=== PATIENT | female | born 1940 | race Caucasian/White ===

== ENCOUNTER 2019-08-26 09:48 | Outpatient (CLI) | payer MEDICARE, SELFPAY ==
[2019-08-26 10:31] LABS: Magnesium 1.4 mg/dL (1.8-2.4); Thyroid Stimulating Hormone 1.56 uIU/mL (0.36-3.74)
== END 2019-08-26 09:49 | disposition home or self-care (01) ==
LOC: CHSLAB 09:52
PROVIDERS: PCP Nurse Practitioner Family; Visit Provider Nurse Practitioner Family
DX: E83.42 Hypomagnesemia (principal); E03.9 Hypothyroidism, unspecified
CPT/HCPCS: 36415; 83735; 84443

== ENCOUNTER 2019-08-28 12:53 | Outpatient (CLI) | payer MEDICARE, BC, SELFPAY ==
[2019-08-28] MEDS: MAGNESIUM SULF 4 GM/WATER100ML 4 GM/100 ML BAG IVPB (13:40)
== END 2019-08-28 12:54 | disposition home or self-care (01) ==
LOC: CHSTREATRM 12:56
PROVIDERS: PCP Nurse Practitioner Family; Visit Provider Nurse Practitioner Family
DX: E83.42 Hypomagnesemia (principal)
CPT/HCPCS: 96365; J3475

== ENCOUNTER 2019-09-02 10:27 | Outpatient (RCR) | payer MEDICARE, SELFPAY ==
[2019-09-02 11:40] LABS: Magnesium 1.8 mg/dL (1.8-2.4)
== END 2019-12-01 23:59 | disposition home or self-care (01) ==
LOC: CHSLAB 10:27
PROVIDERS: PCP Nurse Practitioner Family; Visit Provider Nurse Practitioner Family
DX: E83.42 Hypomagnesemia (principal)
CPT/HCPCS: 36415; 83735

== ENCOUNTER 2019-11-15 20:01 | Emergency (ER) | payer MEDICARE, BC, SELFPAY ==
[2019-11-15 20:15] VITALS: PULSE 80
[2019-11-15 20:20] VITALS: BP 190/99; PULSE 104; RESP 20; TEMP 37.1; O2SAT 98
--- NOTE | 2019-11-15 20:29 | ECG_ITS ---
Measurements Intervals [place] Rate: 71 P: 56 NV: 192 QRS: 6 QRSD: 91 T: 8 QT: 369 QTc: 404 Interpretive Statements SINUS RHYTHM BORDERLINE T WAVE ABNORMALITY- INFERIOR LEADS BASELINE ARTIFACT- I, II, III, AVR, AVL, AVF BORDERLINE ECG Electronically Signed On 11-17-2019 7:04:15 CDT by Mo Betancur D.O.
[2019-11-15 20:56] LABS: Basophils Absolute Auto 0.05 K/mm3 (0.00-0.10); Basophils Percent Auto 0.7 % (0.0-1.0); Eosinophils Absolute Auto 0.16 K/mm3 (0.02-0.50); Eosinophils Percent Auto 2.2 % (1.0-6.0); Hematocrit 45.9 % (35.0-42.0); Hemoglobin 15.7 g/dL (11.7-13.8); Immature Granulocyte Absolute 0.01 K/mm3 (0.00-0.00); Immature Granulocyte Percent A 0.1 % (0.0-0.0); Lymphocytes Absolute Auto 3.16 K/mm3 (1.10-4.50); Lymphocytes Percent Auto 43.6 % (18.0-42.0); Mean Corpuscular HGB Conc 34.2 g/dL (32.0-36.0); Mean Corpuscular Hemoglobin 34.7 pg (27.0-31.0); Mean Corpuscular Volume 101.3 fL (78.0-102.0); Mean Platelet Volume 9.7 fl (9.2-11.8); Monocytes Absolute Auto 0.66 K/mm3 (0.10-0.90); Monocytes Percent Auto 9.1 % (2.0-11.0); Neutrophils Absolute Auto 3.2 K/mm3 (1.7-7.2); Neutrophils Percent Auto 44.3 % (50.0-70.0); Platelet Count Result 232 K/mm3 (150-420); Red Blood Count 4.53 M/mm3 (4.20-5.40); White Blood Count 7.2 K/mm3 (4.8-10.8)
[2019-11-15 21:24] VITALS: BP 163/91; PULSE 63; RESP 18; O2SAT 98
[2019-11-15 21:24] LABS: Alanine Aminotransferase 15 U/L (14-59); Albumin Level 4.2 g/dL (3.4-5.0); Alkaline Phosphatase 45 U/L (46-116); Anion Gap 12.9 mmol/L (7-16); Aspartate Amino Transferase 19 U/L (15-37); Bilirubin,Total 0.5 mg/dL (0.00-1.00); Blood Urea Nitrogen 25 mg/dL (7-18); Calcium 10.1 mg/dL (8.5-10.1); Carbon Dioxide 29 mmol/L (21-32); Chloride 103 mmol/L (98-108); Estimated CRCL calculation 38 ml/min; Estimated Glomerular Filt Rate 48; Glucose 137 mg/dL (70-99); Magnesium 1.7 mg/dL (1.8-2.4); Osmolality Calculated 298 mOsm/kg (285-295); Potassium 3.9 mmol/L (3.5-5.1); Sodium 141 mmol/L (136-145); Total Protein 7.2 g/dL (6.4-8.2)
[2019-11-15 21:25] LABS: Troponin I < 0.02 ng/mL (0.00-0.056)
[2019-11-15 21:26] LABS: Thyroid Stimulating Hormone 2.53 uIU/mL (0.36-3.74)
[2019-11-15 22:03] VITALS: BP 163/92; PULSE 63; RESP 20; TEMP 36.8; O2SAT 98
--- NOTE | 2019-11-15 22:04 | ED.ARRPALP ---
HPI - Arrhythmia/Palpitations General Chief Complaint: Weakness Stated Complaint: high pulse Source: patient Mode of arrival: ambulatory Limitations: no limitations History of Present Illness HPI narrative: 79 y.o. female c/o palpitations, onset at 6 PM tonight associated with rapid heart rate as high as 143. Peyton has a long history of these which has been followed by cardiology, Dr. Venegas. They have been associated with low magnesium levels. Every since being dx. with hypothyroidism and starting levothyroxine she has not had problems with this. In the past her rn care manager had drink cold water, cough, grunt, or take a deep breath. These maneuvers this evening brought her pulse down temporarily. Usually her blood pressure runs around 120 systolic. Tonight it was aslo elevated. She has not missed doses of medicine. She was anxious this afternoon when, for the first time, she picked up groceries which she had ordered on line. Severity: moderate Context: occurred during rest Related Data Home Medications Medication Instructions Recorded Confirmed L.acidophilus-B.bifidum,longum 240 cap PO 05/20/19 05/20/19 mg (3 billion cell) capsule acetaminophen 325 mg tablet 325 mg PO Q6H PRN 05/20/19 05/20/19 aspirin 81 mg tablet,delayed 81 mg PO DAILY 05/20/19 05/20/19 release estradiol 0.5 mg/0.5 gram (0.1 %) 1 packet TRANSDERM DAILY 05/20/19 05/20/19 transdermal gel packet fenofibrate micronized 134 mg 134 mg PO DAILY 05/20/19 05/20/19 capsule losartan 100 mg tablet 100 mg PO DAILY 05/20/19 05/20/19 magnesium oxide 800 mg PO BID cap 05/20/19 metoprolol tartrate 25 mg tablet 25 mg PO DAILY 05/20/19 05/20/19 ranitidine HCl 150 mg tablet 150 mg PO BID tablet 05/20/19 05/20/19 spironolactone 100 mg tablet 100 mg PO DAILY 05/20/19 05/20/19 tramadol 50 mg tablet 50 mg PO Q6H PRN 05/20/19 05/20/19 alprazolam 0.5 mg PO HS 11/15/19 11/15/19 colestipol 1 gm PO BID 11/15/19 11/15/19 Allergies Allergy/AdvReac Type Severity Reaction Status Date / Time codeine Allergy Intermediate Unknown Verified 08/07/19 13:53 magnesium citrate Allergy Intermediate diarrhea Verified 08/07/19 13:53 sulfisoxazole Allergy Intermediate Unknown Verified 08/07/19 13:53 IVP dye Allergy Intermediate Unknown Uncoded 08/07/19 13:53 Review of Systems Constitutional: Constitutional: Denies chills and Denies fever(s) ENT: Denies nasal congestion and Denies sore throat Cardiovascular: Cardiovascular: Denies chest pain and Denies radiating jaw, neck or arm pain Respiratory: Respiratory: Denies cough and Denies dyspnea Gastrointestinal: Gastrointestinal: Denies abdominal pain, Denies nausea and Denies vomiting Genitourinary: Genitourinary: Denies dysuria Musculoskeletal: Musculoskeletal: Reports arthralgias (chronic knee pain) Integumentary/Breasts: Skin/Breast: Denies rash Neurologic: Denies syncope Psychiatric: Psychiatric: Reports anxiety Hematologic/Lymphatic: Hematologic/Lymphatic: Denies easy bleeding PMFSH Past Medical History Medical History External hemorrhoids GERD (gastroesophageal reflux disease) HTN (hypertension) (02/28/18) Hypomagnesemia (01/17/18) Sleep apnea SVT (supraventricular tachycardia) Surgical History Surgical History History of appendectomy History of hernia repair History of lumpectomy of left breast Hx laparoscopic cholecystectomy Hx of coronary artery disease Hx of joint replacement Hx of small bowel obstruction Family History Family History Father Family history of chronic obstructive pulmonary disease Family history of coronary artery disease Father Family history of coronary artery disease Family history of chronic obstructive pulmonary disease Mother Hypertension Mother Hypertension Father Family history of coronary artery disease Fami
== END 2019-11-15 22:14 | disposition home or self-care (01) ==
PROVIDERS: Emergency Provider Family Medicine; PCP Nurse Practitioner Family
DX: R00.2 Palpitations (principal); E83.42 Hypomagnesemia
CPT/HCPCS: 36415; 80053; 83735; 84443; 84484; 85025; 93005; 99284

== ENCOUNTER 2019-12-22 09:05 | Outpatient (CLI) | payer MEDICARE, SELFPAY ==
[2019-12-22 10:18] LABS: Magnesium 1.8 mg/dL (1.8-2.4); Thyroid Stimulating Hormone 1.99 uIU/mL (0.36-3.74)
[2019-12-30 06:50] LABS: Total Triiodothyronine (T3) 91
== END 2019-12-22 09:06 | disposition home or self-care (01) ==
PROVIDERS: PCP Nurse Practitioner Family; Visit Provider Nurse Practitioner Family
DX: E83.42 Hypomagnesemia (principal); E03.9 Hypothyroidism, unspecified
CPT/HCPCS: 36415; 83735; 84439; 84443; 84480

== ENCOUNTER 2020-03-18 11:00 | Outpatient (CLI) | payer MEDICARE, SELFPAY ==
[2020-03-18 11:23] LABS: Basophils Absolute Auto 0.07 K/mm3 (0.00-0.10); Basophils Percent Auto 0.9 % (0.0-1.0); Eosinophils Absolute Auto 0.07 K/mm3 (0.02-0.50); Eosinophils Percent Auto 0.9 % (1.0-6.0); Hematocrit 46.9 % (35.0-42.0); Hemoglobin 15.6 g/dL (11.7-13.8); Immature Granulocyte Absolute 0.03 K/mm3 (0.00-0.00); Immature Granulocyte Percent A 0.4 % (0.0-0.0); Lymphocytes Absolute Auto 1.71 K/mm3 (1.10-4.50); Lymphocytes Percent Auto 21.3 % (18.0-42.0); Mean Corpuscular HGB Conc 33.3 g/dL (32.0-36.0); Mean Corpuscular Hemoglobin 34.1 pg (27.0-31.0); Mean Corpuscular Volume 102.4 fL (78.0-102.0); Mean Platelet Volume 9.7 fl (9.2-11.8); Monocytes Absolute Auto 0.65 K/mm3 (0.10-0.90); Monocytes Percent Auto 8.1 % (2.0-11.0); Neutrophils Absolute Auto 5.5 K/mm3 (1.7-7.2); Neutrophils Percent Auto 68.4 % (50.0-70.0); Platelet Count Result 266 K/mm3 (150-420); Red Blood Count 4.58 M/mm3 (4.20-5.40); Red Cell Distribution Width 12.5 % (11.6-14.4)
[2020-03-18 12:27] LABS: Alanine Aminotransferase 22 U/L (14-59); Albumin Level 4.4 g/dL (3.4-5.0); Alkaline Phosphatase 38 U/L (46-116); Anion Gap 5 mmol/L (8-16); Aspartate Amino Transferase 16 U/L (15-37); Bilirubin,Total 0.8 mg/dL (0.00-1.00); Blood Urea Nitrogen 20 mg/dL (7-18); Calcium 10.7 mg/dL (8.5-10.1); Carbon Dioxide 29 mmol/L (21-32); Chloride 101 mmol/L (98-108); Estimated Glomerular Filt Rate 49; Free T4 Free Thyroxine 1.78 ng/dL (0.76-1.46); Glucose 93 mg/dL (70-99); Magnesium 1.9 mg/dL (1.8-2.4); Osmolality Calculated 282 mOsm/kg (285-295); Potassium 5.1 mmol/L (3.5-5.1); Sodium 135 mmol/L (136-145); Thyroid Stimulating Hormone 1.49 uIU/mL (0.36-3.74); Total Protein 7.4 g/dL (6.4-8.2); Vitamin B12 1288 pg/mL (193-986)
[2020-03-23 12:28] LABS: Vitamin D 25 Hydroxy 44 ng/mL (30-100)
[2020-03-24 04:30] LABS: Total Triiodothyronine (T3) 89.7 ng/dL (76-181)
== END 2020-03-18 11:01 | disposition home or self-care (01) ==
LOC: CHSLAB 11:04
PROVIDERS: PCP Nurse Practitioner Family; Visit Provider Nurse Practitioner Family
DX: R53.1 Weakness (principal); E03.9 Hypothyroidism, unspecified; E83.42 Hypomagnesemia; Z79.899 Other long term (current) drug therapy
CPT/HCPCS: 36415; 80053; 82306; 82607; 83735; 84439; 84443; 84480; 85025

== ENCOUNTER 2020-04-08 13:10 | Emergency (ER) | payer MEDICARE, BC, SELFPAY ==
[2020-04-08 13:30] VITALS: BP 190/96; PULSE 70; RESP 20; TEMP 36.7; O2SAT 100
--- NOTE | 2020-04-08 13:35 | ECG_ITS ---
Measurements Intervals [place] Rate: 65 P: -11 MO: 183 QRS: 80 QRSD: 92 T: -2 QT: 404 QTc: 422 Interpretive Statements SINUS RHYTHM ATRIAL PREMATURE COMPLEX BORDERLINE ST-T WAVE ABNORMALITY- INFERIOR LEADS BASELINE ARTIFACT- II, III BORDERLINE ECG Electronically Signed On 04-08-2020 14:00:22 CDT by Mo Betancur D.O.
[2020-04-08 13:54] LABS: Hematocrit 44.6 % (35.0-42.0); Hemoglobin 15.1 g/dL (11.7-13.8); Mean Corpuscular HGB Conc 33.9 g/dL (32.0-36.0); Mean Corpuscular Hemoglobin 34.6 pg (27.0-31.0); Mean Corpuscular Volume 102.3 fL (78.0-102.0); Mean Platelet Volume 9.5 fl (9.2-11.8); Platelet Count Result 255 K/mm3 (150-420); Red Blood Count 4.36 M/mm3 (4.20-5.40); Red Cell Distribution Width 12.3 % (11.6-14.4); White Blood Count 9.6 K/mm3 (4.8-10.8)
[2020-04-08 14:13] LABS: Alanine Aminotransferase 11 U/L (14-59); Albumin Level 4.3 g/dL (3.4-5.0); Alkaline Phosphatase 41 U/L (46-116); Anion Gap 5 mmol/L (8-16); Aspartate Amino Transferase 17 U/L (15-37); Blood Urea Nitrogen 24 mg/dL (7-18); Calcium 10.1 mg/dL (8.5-10.1); Carbon Dioxide 28 mmol/L (21-32); Chloride 100 mmol/L (98-108); Estimated CRCL calculation 45 ml/min; Estimated Glomerular Filt Rate 58; Glucose 112 mg/dL (70-99); Osmolality Calculated 281 mOsm/kg (285-295); Potassium 4.3 mmol/L (3.5-5.1); Sodium 133 mmol/L (136-145); Total Protein 7.5 g/dL (6.4-8.2)
[2020-04-08 14:18] LABS: Troponin I < 0.02 ng/mL (0.00-0.056)
[2020-04-08 14:21] VITALS: BP 175/94; PULSE 69; RESP 20; O2SAT 98
[2020-04-08 15:04] VITALS: PULSE 68
[2020-04-08] MEDS: METOPROLOL TARTRATE 50 MG TAB PO (15:04)
--- NOTE | 2020-04-08 15:25 | ED.DIZZY ---
HPI - Dizziness General Chief Complaint: Dizziness Stated Complaint: dizziness, high BP Source: patient and family Mode of arrival: ambulatory Limitations: no limitations History of Present Illness HPI Narrative: This is a 79 old female that presents with history of hypertension with some elevated blood pressure. The patient recently was seen by her industrial maintenance electrician approximately 1 week ago and was told to monitor her blood pressure. Patient presents today with some symptoms of elevated blood pressure and dizziness with head movement. Currently there is no chest pain no shortness of breath no nausea vomiting no abdominal pain. Initial blood pressure on presentation was not 190/76, patient is on metoprolol and losartan along with spironolactone. MD elicited complaint: dizziness and lightheadedness Onset (ago): day(s) Timing: gradual onset Severity: mild Description: sense of movement History of similar symptoms: No Relieving factors: nothing Associated symptoms: denies other symptoms Related Data Home Medications Medication Instructions Recorded Confirmed L.acidophilus-B.bifidum,longum 240 1 cap PO DAILY 05/20/19 03/23/20 mg (3 billion cell) capsule acetaminophen 325 mg tablet 325 mg PO Q6H PRN 05/20/19 03/23/20 aspirin 81 mg tablet,delayed 81 mg PO DAILY 05/20/19 03/23/20 release fenofibrate micronized 134 mg 134 mg PO DAILY 05/20/19 03/23/20 capsule magnesium oxide 400 mg PO BID cap 05/20/19 03/23/20 metoprolol tartrate 25 mg tablet 25 mg PO BID 05/20/19 03/23/20 ranitidine HCl 150 mg tablet 150 mg PO BID tablet 05/20/19 03/23/20 spironolactone 100 mg tablet 100 mg PO DAILY 05/20/19 03/23/20 alprazolam 0.5 mg PO HS 11/15/19 03/23/20 colestipol 1 gm PO BID 11/15/19 03/23/20 Allergies Allergy/AdvReac Type Severity Reaction Status Date / Time codeine Allergy Intermediate Unknown Verified 03/23/20 09:11 magnesium citrate Allergy Intermediate diarrhea Verified 03/23/20 09:11 sulfisoxazole Allergy Intermediate Unknown Verified 03/23/20 09:11 IVP dye Allergy Intermediate Unknown Uncoded 03/23/20 09:11 Review of Systems Review of Systems: All systems reviewed & are unremarkable except as noted in HPI and below PMFSH Past Medical History Medical History Adult hypothyroidism Aftercare following knee joint replacement surgery External hemorrhoids ABEL (generalized anxiety disorder) GERD (gastroesophageal reflux disease) HTN (hypertension) (02/28/18) Hypomagnesemia (01/17/18) Sleep apnea SVT (supraventricular tachycardia) Surgical History Surgical History History of appendectomy History of hernia repair History of lumpectomy of left breast Hx laparoscopic cholecystectomy Hx of coronary artery disease Hx of joint replacement Hx of small bowel obstruction Family History Family History Father Family history of chronic obstructive pulmonary disease Family history of coronary artery disease Father Family history of coronary artery disease Family history of chronic obstructive pulmonary disease Mother Hypertension Mother Hypertension Father Family history of coronary artery disease Family history of chronic obstructive pulmonary disease Other Diabetes mellitus Family history of arthritis Family history of cardiovascular disease Family history of gout Social History Social History Smoking status: Never smoker Tobacco type: cigarettes Alcohol intake: never Substance use: never Substance use type: does not use Gender identity (if verbalized by the patient): Female Exam Const: General: no acute distress Orientation/consciousness: patient oriented x3 HENMT: Head: normal to inspection Eyes: Conjunctivae: conjunctivae normal Pupils: Equal, round and reactive
[2020-04-08 15:36] VITALS: BP 158/94; PULSE 61; RESP 20; O2SAT 99
== END 2020-04-08 15:46 | disposition home or self-care (01) ==
PROVIDERS: Emergency Provider Emergency Medicine; PCP Nurse Practitioner Family
DX: R42 Dizziness and giddiness (principal); I10 Essential (primary) hypertension; E03.9 Hypothyroidism, unspecified; K21.9 Gastro-esophageal reflux disease without esophagitis
CPT/HCPCS: 36415; 80053; 84484; 85027; 93005; 99283; 99284; A9270

== ENCOUNTER 2020-06-26 17:58 | Emergency (ER) | payer MEDICARE, BC, SELFPAY ==
[2020-06-26 18:05] VITALS: BP 189/96; PULSE 72; RESP 16; TEMP 36.9; O2SAT 99
--- NOTE | 2020-06-26 18:14 | ECG_ITS ---
Measurements Intervals [place] Rate: 66 P: 35 OR: 184 QRS: 13 QRSD: 90 T: 15 QT: 388 QTc: 408 Interpretive Statements SINUS RHYTHM WITH SINUS ARRHYTHMIA BORDERLINE T WAVE ABNORMALITY- INFERIOR LEADS BASELINE ARTIFACT- I, II, III, AVR, AVL, AVF, V1-V6 BORDERLINE ECG Electronically Signed On 06-27-2020 13:43:16 SENIOR JAVA WEB DEVELOPER by Mo Betancur D.O.
[2020-06-26] MEDS: ALPRAZolam (*CRX) 0.5 MG TABLET PO (18:23)
[2020-06-26 18:25] LABS: Basophils Absolute Auto 0.07 K/mm3 (0.00-0.10); Eosinophils Absolute Auto 0.12 K/mm3 (0.02-0.50); Eosinophils Percent Auto 1.8 % (1.0-6.0); Hematocrit 45.2 % (35.0-42.0); Hemoglobin 14.8 g/dL (11.7-13.8); Immature Granulocyte Absolute 0.02 K/mm3 (0.00-0.00); Immature Granulocyte Percent A 0.3 % (0.0-0.0); Lymphocytes Absolute Auto 2.13 K/mm3 (1.10-4.50); Lymphocytes Percent Auto 31.1 % (18.0-42.0); Mean Corpuscular HGB Conc 32.7 g/dL (32.0-36.0); Mean Corpuscular Hemoglobin 33.9 pg (27.0-31.0); Mean Corpuscular Volume 103.7 fL (78.0-102.0); Mean Platelet Volume 9.7 fl (9.2-11.8); Monocytes Absolute Auto 0.55 K/mm3 (0.10-0.90); Neutrophils Percent Auto 57.8 % (50.0-70.0); Platelet Count Result 225 K/mm3 (150-420); Red Blood Count 4.36 M/mm3 (4.20-5.40); Red Cell Distribution Width 12.3 % (11.6-14.4); White Blood Count 6.8 K/mm3 (4.8-10.8)
[2020-06-26 18:40] LABS: Alanine Aminotransferase 17 U/L (14-59); Albumin Level 3.9 g/dL (3.4-5.0); Alkaline Phosphatase 49 U/L (46-116); Anion Gap 10 mmol/L (8-16); Aspartate Amino Transferase 17 U/L (15-37); Blood Urea Nitrogen 21 mg/dL (7-18); Calcium 9.7 mg/dL (8.5-10.1); Carbon Dioxide 28 mmol/L (21-32); Chloride 99 mmol/L (98-108); Estimated Glomerular Filt Rate 59; Glucose 100 mg/dL (70-99); Osmolality Calculated 287 mOsm/kg (285-295); Potassium 4.5 mmol/L (3.5-5.1); Sodium 137 mmol/L (136-145); Total Protein 7.3 g/dL (6.4-8.2)
--- NOTE | 2020-06-26 18:42 | ED.GENADULT ---
HPI - General Adult General Chief complaint: Unspecified Stated complaint: elevated bp Related Data Home Medications Medication Instructions Recorded Confirmed acetaminophen 325 mg tablet 325 mg PO Q6H PRN 05/20/19 06/26/20 aspirin 81 mg tablet,delayed 81 mg PO DAILY 05/20/19 06/26/20 release fenofibrate micronized 134 mg 134 mg PO DAILY 05/20/19 06/26/20 capsule magnesium oxide 400 mg PO BID cap 05/20/19 06/26/20 ranitidine HCl 150 mg tablet 150 mg PO BID tablet 05/20/19 06/26/20 spironolactone 100 mg tablet 100 mg PO DAILY 05/20/19 06/26/20 alprazolam 0.5 mg PO HS 11/15/19 06/26/20 colestipol 1 gm PO BID 11/15/19 06/26/20 Allergies Allergy/AdvReac Type Severity Reaction Status Date / Time codeine Allergy Intermediate Unknown Verified 04/14/20 14:13 magnesium citrate Allergy Intermediate diarrhea Verified 04/14/20 14:13 sulfisoxazole Allergy Intermediate Unknown Verified 04/14/20 14:13 iohexol Allergy Flushing Verified 06/26/20 18:11 [From contrast - CT, X-RAY] PMFSH Past Medical History Medical History Adult hypothyroidism Aftercare following knee joint replacement surgery External hemorrhoids ABEL (generalized anxiety disorder) GERD (gastroesophageal reflux disease) HTN (hypertension) (02/28/18) Hypomagnesemia (01/17/18) Sleep apnea SVT (supraventricular tachycardia) Surgical History Surgical History History of appendectomy History of hernia repair History of lumpectomy of left breast Hx laparoscopic cholecystectomy Hx of coronary artery disease Hx of joint replacement Hx of small bowel obstruction Family History Family History Father Family history of chronic obstructive pulmonary disease Family history of coronary artery disease Father Family history of coronary artery disease Family history of chronic obstructive pulmonary disease Mother Hypertension Mother Hypertension Father Family history of coronary artery disease Family history of chronic obstructive pulmonary disease Other Diabetes mellitus Family history of arthritis Family history of cardiovascular disease Family history of gout Social History Social History Smoking status: Never smoker Tobacco type: cigarettes Alcohol intake: never Substance use: never Substance use type: does not use Gender identity (if verbalized by the patient): Female Medical Decision Making Lab Data Result diagrams: 06/26/20 18:22 06/26/20 18:22 Labs: Lab Results 06/26/20 06/26/20 Range/Units 18:22 18:22 WBC 6.8 (4.8-10.8) K/mm3 RBC 4.36 (4.20-5.40) M/mm3 Hgb 14.8 H (11.7-13.8) g/dL Hct 45.2 H (35.0-42.0) % MCV 103.7 H (78.0-102.0) fL MCH 33.9 H (27.0-31.0) pg MCHC 32.7 (32.0-36.0) g/dL RDW 12.3 (11.6-14.4) % Plt Count 225 (150-420) K/mm3 MPV 9.7 (9.2-11.8) fl Immature Gran % (Auto) 0.3 H (0.0-0.0) % Neut % (Auto) 57.8 (50.0-70.0) % Lymph % (Auto) 31.1 (18.0-42.0) % Clare % (Auto) 8.0 (2.0-11.0) % Eos % (Auto) 1.8 (1.0-6.0) % Baso % (Auto) 1.0 (0.0-1.0) % Lymph # (Auto) 2.13 (1.10-4.50) K/mm3 Clare # (Auto) 0.55 (0.10-0.90) K/mm3 Eos # (Auto) 0.12 (0.02-0.50) K/mm3 Baso # (Auto) 0.07 (0.00-0.10) K/mm3 Abs Immat Gran (auto) 0.02 H (0.00-0.00) K/mm3 Absolute Neuts (auto) 4.0 (1.7-7.2) K/mm3 Absolute Nucleated RBC 0.00 (0.00-0.00) K/mm3 Nucleated RBC % 0.0 (0-0.0) % Sodium 137 (136-145) mmol/L Potassium 4.5 (3.5-5.1) mmol/L Chloride 99 (98-108) mmol/L Carbon Dioxide 28 (21-32) mmol/L Anion Gap 10 (8-16) mmol/L BUN 21 H (7-18) mg/dL Creatinine 0.92 (0.55-1.02) mg/dL Estim Creat Clear Calc Not Reportable Estimated GFR 59 (59 - )
--- NOTE | 2020-06-26 18:42 | ED.ANXIETY ---
HPI - Anxiety General Chief Complaint: Unspecified Stated Complaint: elevated bp Source: patient and family Mode of arrival: ambulatory Limitations: no limitations History of Present Illness HPI narrative: This is a 79-year-old female with history of hypertension and anxiety presents with elevated blood pressure but with symptoms of increased anxiety after she watched a video of recently friend which she got upset and developed dieting causing her blood pressure to increase, blood pressure systolic was 177, their baugh patient was resting comfortably her anxiety [place] somewhat, with no chest pain no shortness of breath no abdominal pain no headaches no blurry vision no nausea or vomiting no fever chills. complaint: anxiety Onset (ago): hour(s) Severity: moderate Quality: intermittent Place: home History of similar episodes: Yes Provoking factors: emotional stress Relieving factors: medication Exacerbating factors: thinking about event Associated symptoms: denies other symptoms Related Data Home Medications Medication Instructions Recorded Confirmed acetaminophen 325 mg tablet 325 mg PO Q6H PRN 05/20/19 06/26/20 aspirin 81 mg tablet,delayed 81 mg PO DAILY 05/20/19 06/26/20 release fenofibrate micronized 134 mg 134 mg PO DAILY 05/20/19 06/26/20 capsule magnesium oxide 400 mg PO BID cap 05/20/19 06/26/20 ranitidine HCl 150 mg tablet 150 mg PO BID tablet 05/20/19 06/26/20 spironolactone 100 mg tablet 100 mg PO DAILY 05/20/19 06/26/20 alprazolam 0.5 mg PO HS 11/15/19 06/26/20 colestipol 1 gm PO BID 11/15/19 06/26/20 Allergies Allergy/AdvReac Type Severity Reaction Status Date / Time codeine Allergy Intermediate Unknown Verified 04/14/20 14:13 magnesium citrate Allergy Intermediate diarrhea Verified 04/14/20 14:13 sulfisoxazole Allergy Intermediate Unknown Verified 04/14/20 14:13 iohexol Allergy Flushing Verified 06/26/20 18:11 [From contrast - CT, X-RAY] Review of Systems Review of Systems: All systems reviewed & are unremarkable except as noted in HPI and below PMFSH Past Medical History Medical History (Updated 06/26/20 @ 18:49 by Roberto Love MD) Adult hypothyroidism Aftercare following knee joint replacement surgery External hemorrhoids ABEL (generalized anxiety disorder) GERD (gastroesophageal reflux disease) HTN (hypertension) (02/28/18) Hypomagnesemia (01/17/18) Sleep apnea SVT (supraventricular tachycardia) Surgical History Surgical History History of appendectomy History of hernia repair History of lumpectomy of left breast Hx laparoscopic cholecystectomy Hx of coronary artery disease Hx of joint replacement Hx of small bowel obstruction Family History Family History Father Family history of chronic obstructive pulmonary disease Family history of coronary artery disease Father Family history of coronary artery disease Family history of chronic obstructive pulmonary disease Mother Hypertension Mother Hypertension Father Family history of coronary artery disease Family history of chronic obstructive pulmonary disease Other Diabetes mellitus Family history of arthritis Family history of cardiovascular disease Family history of gout Social History Social History Smoking status: Never smoker Tobacco type: cigarettes Alcohol intake: never Substance use: never Substance use type: does not use Gender identity (if verbalized by the patient): Female Exam Const: General: cooperative, healthy appearing, comfortable and no acute distress HENMT: Head: normal to inspection Ears: hearing grossly normal bilaterally Mouth: Yes Normal oral and palatal mucosa present Eyes: General: appearance normal, both eyes and all related structures Eyelids: eyelids normal Conjunctivae: conjunc
[2020-06-26 18:46] VITALS: BP 162/96
[2020-06-26 19:00] VITALS: BP 162/93; PULSE 60; O2SAT 99
== END 2020-06-26 19:05 | disposition home or self-care (01) ==
PROVIDERS: Emergency Provider Emergency Medicine; PCP Nurse Practitioner Family
DX: F41.1 Generalized anxiety disorder (principal); I10 Essential (primary) hypertension; E03.9 Hypothyroidism, unspecified; K21.9 Gastro-esophageal reflux disease without esophagitis; E83.42 Hypomagnesemia
CPT/HCPCS: 36415; 80053; 85025; 93005; 99283; A9270

== ENCOUNTER 2020-08-02 12:49 | Outpatient (CLI) | payer MEDICARE, BC, SELFPAY ==
--- NOTE | ~2020-08-02 | MM_ITS ---
EXAMINATION: MM screening [facility] BI w joel HISTORY: Screening mammogram TECHNIQUE: Craniocaudal and mediolateral oblique 3-D tomosynthesis images were obtained and synthetic 2-D images were generated. CAD analysis was submitted and interpreted. COMPARISON: No prior mammogram is available for comparison at this institution. BREAST PARENCHYMAL COMPOSITION: The breasts are heterogeneously dense, which may obscure small masses . FINDINGS: There is a stable benign-appearing 12 mm circumscribed mass anteriorly in the lower outer q uadrant of the left breast. Otherwise there is no evidence of suspicious mass, calcification, or architectural distortion to sugg est malignancy in either breast. There has been no other suspicious interval change. IMPRESSION: 1. No mammographic evidence of malignancy. 2. Recommend routine screening mammography in one year. BI-RADS Category 2: Benign finding(s). Reviewed, dictated and finalized at location A. OSIVE ORDNANCE DISPOSAL SPECIALIST
== END 2020-08-02 12:50 | disposition home or self-care (01) ==
LOC: CHSIMG 12:50
PROVIDERS: PCP Nurse Practitioner Family; Visit Provider Nurse Practitioner Family
DX: Z12.31 Encounter for screening mammogram for malignant neoplasm of breast (principal)
CPT/HCPCS: 77063; 77067

== ENCOUNTER 2020-09-16 08:23 | Outpatient (CLI) | payer MEDICARE, SELFPAY ==
[2020-09-16 08:36] LABS: Basophils Absolute Auto 0.06 K/mm3 (0.00-0.10); Basophils Percent Auto 0.8 % (0.0-1.0); Eosinophils Absolute Auto 0.22 K/mm3 (0.02-0.50); Eosinophils Percent Auto 2.9 % (1.0-6.0); Hematocrit 45.7 % (35.0-42.0); Hemoglobin 15.5 g/dL (11.7-13.8); Immature Granulocyte Absolute 0.02 K/mm3 (0.00-0.00); Immature Granulocyte Percent A 0.3 % (0.0-0.0); Lymphocytes Absolute Auto 2.05 K/mm3 (1.10-4.50); Lymphocytes Percent Auto 27.4 % (18.0-42.0); Mean Corpuscular HGB Conc 33.9 g/dL (32.0-36.0); Mean Corpuscular Hemoglobin 34.8 pg (27.0-31.0); Mean Corpuscular Volume 102.5 fL (78.0-102.0); Mean Platelet Volume 9.7 fl (9.2-11.8); Monocytes Absolute Auto 0.71 K/mm3 (0.10-0.90); Monocytes Percent Auto 9.5 % (2.0-11.0); Neutrophils Absolute Auto 4.4 K/mm3 (1.7-7.2); Neutrophils Percent Auto 59.1 % (50.0-70.0); Platelet Count Result 216 K/mm3 (150-420); Red Blood Count 4.46 M/mm3 (4.20-5.40); Red Cell Distribution Width 12.3 % (11.6-14.4); White Blood Count 7.5 K/mm3 (4.8-10.8)
[2020-09-16 09:39] LABS: Alanine Aminotransferase 21 U/L (14-59); Albumin Level 3.9 g/dL (3.4-5.0); Alkaline Phosphatase 54 U/L (46-116); Anion Gap 5 mmol/L (8-16); Aspartate Amino Transferase 14 U/L (15-37); Bilirubin,Total 1.4 mg/dL (0.00-1.00); Blood Urea Nitrogen 24 mg/dL (7-18); Calcium 10.5 mg/dL (8.5-10.1); Carbon Dioxide 31 mmol/L (21-32); Chloride 100 mmol/L (98-108); Cholesterol 190 mg/dL (0-200); Estimated Glomerular Filt Rate 50; Free T4 Free Thyroxine 1.94 ng/dL (0.76-1.46); Glucose 90 mg/dL (70-99); HDL Direct 59 mg/dL (40-60); LDL Cholesterol Calculated 111 mg/dL (<130); Magnesium 1.6 mg/dL (1.8-2.4); Osmolality Calculated 286 mOsm/kg (285-295); Sodium 136 mmol/L (136-145); Thyroid Stimulating Hormone 2.34 uIU/mL (0.36-3.74); Triglycerides 101 mg/dL (0-150)
== END 2020-09-16 08:24 | disposition home or self-care (01) ==
LOC: CHSLAB 08:26
PROVIDERS: PCP Nurse Practitioner Family; Visit Provider Nurse Practitioner Family
DX: E03.9 Hypothyroidism, unspecified (principal); I10 Essential (primary) hypertension; E83.42 Hypomagnesemia
CPT/HCPCS: 36415; 80053; 80061; 83735; 84439; 84443; 85025

== ENCOUNTER 2020-10-25 14:38 | Outpatient (CLI) | payer MEDICARE, SELFPAY ==
[2020-10-25 15:36] LABS: Magnesium 1.7 mg/dL (1.8-2.4)
== END 2020-10-25 14:39 | disposition home or self-care (01) ==
LOC: CHSLAB 14:41
PROVIDERS: PCP Nurse Practitioner Family; Visit Provider Nurse Practitioner Family
DX: E83.42 Hypomagnesemia (principal)
CPT/HCPCS: 36415; 83735

== ENCOUNTER 2020-10-27 10:58 | Outpatient (CLI) | payer MEDICARE, BC, SELFPAY ==
--- NOTE | ~2020-10-27 | XR_ITS ---
EXAMINATION: XR shoulder RT min 2V DATE: 10/27/2020 11:19 INDICATION: Right shoulder pain. TECHNIQUE: 4 views of right shoulder were obtained. COMPARISON: Right shoulder radiographs 01/21/2015 FINDINGS: Bone alignment is normal. No fracture. There is severe osteoarthritis of glenohumeral joint and mild osteoarthritis of acromioclavicular joint. There is calcific tendinitis of the rotator cuff . IMPRESSION: 1. Severe osteoarthritis of glenohumeral joint. 2. Calcific tendinitis of right rotator cuff. Reviewed, dictated and finalized at location A.
== END 2020-10-27 10:59 | disposition home or self-care (01) ==
LOC: CHSIMG 11:02
PROVIDERS: PCP Nurse Practitioner Family; Visit Provider Nurse Practitioner Family
DX: M25.511 Pain in right shoulder (principal)
CPT/HCPCS: 73030

== ENCOUNTER 2020-11-09 10:01 | Outpatient (CLI) | payer MEDICARE, BC, SELFPAY ==
[2020-11-09 11:18] LABS: Free T4 Free Thyroxine 1.62 ng/dL (0.76-1.46); Thyroid Stimulating Hormone 2.23 uIU/mL (0.36-3.74)
[2020-11-09 11:36] LABS: Magnesium 1.5 mg/dL (1.8-2.4)
== END 2020-11-09 10:02 | disposition home or self-care (01) ==
PROVIDERS: PCP Nurse Practitioner Family; Visit Provider Nurse Practitioner Family
DX: E03.9 Hypothyroidism, unspecified (principal); E83.42 Hypomagnesemia
CPT/HCPCS: 36415; 83735; 84439; 84443

== ENCOUNTER 2020-11-11 14:01 | Outpatient (CLI) | payer MEDICARE, BC, SELFPAY ==
[2020-11-11] MEDS: MAGNESIUM SULF 4 GM/WATER100ML 4 GM/100 ML BAG IVPB (14:22)
[2020-11-11 14:37] VITALS: BMI 27.6
[2020-11-11 15:36] VITALS: BP 110/65; PULSE 68; RESP 14; O2SAT 100
--- NOTE | 2020-11-11 15:38 | PC.NURSE ---
Patient tolerated Magnesium IV infusion well. Patient states, I haven't had to have one these in a year. No concerns voiced. Safe exit of hospital.
== END 2020-11-11 14:02 | disposition home or self-care (01) ==
LOC: CHSTREATRM 14:02
PROVIDERS: PCP Nurse Practitioner Family; Visit Provider Nurse Practitioner Family
DX: E83.42 Hypomagnesemia (principal)
CPT/HCPCS: 96365; J3475

== ENCOUNTER 2020-11-19 13:33 | Outpatient (RCR) | payer MEDICARE, BC, SELFPAY ==
--- NOTE | 2020-09-29 15:04 | PTOPEVAL ---
Thank you for referring Peyton Gomez to [facility].? The patient is scheduled to be seen for therapy? ____x/week for ___ weeks. Please review, sign, date and return this plan of care SANTOS. I agree with and certify that the following plan of care is medically necessary. Referring Physician Date Admitting Provider: Attending Provider: Sukhi Murrell DPM Referring Provider: *PT Outpatient Evaluation Start: 09/29/20 08:30 Freq: Status: Active Protocol: Document 09/29/20 14:07 ACR (Rec: 09/29/20 15:02 ACR [id number]) Therapy Assessment Status Assessment Status Assessment Status Evaluation Outpatient Past Medical History Cardiovascular History Hx Cardiac Arrhythmia Yes: SVT Hx Coronary Stent Yes Hx Hypertension Yes Gastrointestinal History Hx Cholecystectomy Yes Hx Hernia Yes Genitourinary History Hx Other Genitourinary Disorders Yes: baldder sling Endocrine History Hx Hyperthyroidism Yes Reproductive History Hx Post Menopausal Yes Evaluation Information Problem Diagnosis abnormal gait Onset 09/27/19 Subjective Information Patient states she has Query Text:As Reported By Patient/ arthritis in her ankle and Family started wearing othotics and she feels she is off balance. She states that she has had low magnesium and thyroid problems and thinks that could contribute to her balance issues. She states she has some difficulty standing up from a chair, ascending and descending the stairs, walking /standing for prolonged periods of time and walking on uneven terrain. She states she still does exercises every morning for her knee and sciatic pain. Prior Level of Function Activity Level (Last 3 Months) Occupation retired Hand Dominance Right Activity of Daily Living Ability Independent Indoor/Home Mobility Independent Community Mobility Independent Stairs Ability Independent Functional Cognition (Planning, Shopping Independent , Taking Medications) Cooking Yes Cleaning Yes Laundry Yes Shopping Yes Driving Yes Pain Assessment
--- NOTE | 2020-10-25 15:19 | PCPTNOTE ---
Patient came for visit and stated that her HR was elevated in the car. When vitals were taken, the patient's BP was 185/99 and then 170/89 a couple minutes later. The patient's OIL ANALYST was called and an appointment was made to see her because the patient took her medications this morning. The patient was sent home at the time. Leana Garcia, PT, DPT
--- NOTE | 2020-11-08 17:36 | PTOPEVAL ---
Thank you for referring Peyton Gomez to [facility].? The patient is scheduled to be seen for therapy? ____x/week for ___ weeks. Please review, sign, date and return this plan of care SANTOS. I agree with and certify that the following plan of care is medically necessary. Referring Physician Date Admitting Provider: Attending Provider: Sukhi Murrell DPM Referring Provider: RhysPT Outpatient Evaluation Start: 09/29/20 08:30 Freq: Status: Active Protocol: Document 11/08/20 14:00 ACR (Rec: 11/08/20 14:59 ACR [id number]) Therapy Assessment Status Assessment Status Assessment Status Progress Outpatient Past Medical History Cardiovascular History Hx Cardiac Arrhythmia Yes: SVT Hx Coronary Stent Yes Hx Hypertension Yes Gastrointestinal History Hx Cholecystectomy Yes Hx Hernia Yes Genitourinary History Hx Other Genitourinary Disorders Yes: baldder sling Endocrine History Hx Hyperthyroidism Yes Reproductive History Hx Post Menopausal Yes Evaluation Information Problem Diagnosis abnormal gait Onset 09/27/19 Subjective Information Patient states she still has Query Text:As Reported By Patient/ times where she is unbalanced. Family Patient states she she still has difficulty with standing up from low chairs and walking on uneven terrain. She states that she is better with stairs and walking on level surfaces for a period of time. The patient feels that therapy has really helped her gain more strength and balance , but wants to continue to feel more confident on uneven terrain and getting out of a chair. Pain Assessment Timing of Pain Assessment Timing of Pain Assessment Pre-Treatment Self Report Self Report Pain Level 0 Pain Score Pain Score 0: Self Report Lower Extremity Muscle Strength Testing Hip Strength Bilateral Hip Flexion Strength 4 Good Hip Abduction Strength 4 Good Knee Strength Bilateral Knee Flexion Strength 5 Normal Knee Extension Strength 4 Good Balance Assessment Tinetti Balance Assessment Sitting Balance Steady, safe Ability to Arise Able, uses arms to help Attempts to Arise Arises on 1st attempt Immediate Standing Balance Steady w/o support Standing Balance
== END 2020-12-03 14:34 | disposition home or self-care (01) ==
LOC: CHSPT 13:33
PROVIDERS: Visit Provider Podiatrist
DX: R26.2 Difficulty in walking, not elsewhere classified (principal)
CPT/HCPCS: 36415; 83735; 97110; 97112; 97161; 97530

== ENCOUNTER 2020-11-23 12:48 | Outpatient (CLI) | payer MEDICARE, BC, SELFPAY ==
[2020-11-23] MEDS: MAGNESIUM SULF 4 GM/WATER100ML 4 GM/100 ML BAG IVPB (13:09)
[2020-11-23 13:17] VITALS: BP 118/67; PULSE 68; RESP 14; TEMP 36.8; O2SAT 98
--- NOTE | 2020-11-23 14:42 | PC.NURSE ---
Patient tolerated IV Magnesium for level 1.5 drawn 11/19/20. No concerns voiced. Patient is hoping to have mag level up to normal soon. Safe exit of hospital.
== END 2020-11-23 12:49 | disposition home or self-care (01) ==
LOC: CHSTREATRM 12:52
PROVIDERS: PCP Nurse Practitioner Family; Visit Provider Nurse Practitioner Family
DX: E83.42 Hypomagnesemia (principal)
CPT/HCPCS: 96365; J3475

== ENCOUNTER 2020-11-25 13:39 | Outpatient (CLI) | payer MEDICARE, BC, SELFPAY ==
[2020-11-25] MEDS: MAGNESIUM SULF 4 GM/WATER100ML 4 GM/100 ML BAG IVPB (14:00)
[2020-11-25 14:20] VITALS: BP 112/60; PULSE 68; RESP 14; TEMP 36.1; O2SAT 97
--- NOTE | 2020-11-25 15:09 | PC.NURSE ---
Patient here for Magnesium infusion for Mag level 1.6. No concerns voiced. Magnesium infusion administered. Patient tolerated it well. Safe exit of hospital.
== END 2020-11-25 13:40 | disposition home or self-care (01) ==
PROVIDERS: PCP Nurse Practitioner Family; Visit Provider Nurse Practitioner Family
DX: E83.42 Hypomagnesemia (principal)
CPT/HCPCS: 36415; 83735; 96365; J3475

== ENCOUNTER 2020-11-30 13:20 | Outpatient (CLI) | payer MEDICARE, BC, SELFPAY ==
[2020-11-30] MEDS: MAGNESIUM SULF 4 GM/WATER100ML 4 GM/100 ML BAG IVPB (13:44)
[2020-11-30 13:52] VITALS: BP 110/65; PULSE 72; RESP 14; O2SAT 97
--- NOTE | 2020-11-30 14:57 | PC.NURSE ---
Patient tolerated standing order of Magnesium IV infusion if Mag level is < 2.0. Mag level was 1.5. Patient wishes it would just go up and stay up. No other concerns voiced. Safe exit of hospital.
== END 2020-11-30 13:21 | disposition home or self-care (01) ==
PROVIDERS: PCP Nurse Practitioner Family; Visit Provider Nurse Practitioner Family
DX: E83.42 Hypomagnesemia (principal)
CPT/HCPCS: 96365; J3475

== ENCOUNTER 2020-12-02 13:23 | Outpatient (CLI) | payer MEDICARE, BC, SELFPAY ==
[2020-12-02] MEDS: MAGNESIUM SULF 4 GM/WATER100ML 4 GM/100 ML BAG IVPB (13:35)
[2020-12-02 13:48] VITALS: BP 114/65; PULSE 68; RESP 14; O2SAT 97
--- NOTE | 2020-12-02 14:42 | PC.NURSE ---
Patient here for IV magnesium infusion for level 1.7. No concerns voiced. Happy it is climbing up. Magnesium infusion administered. Tolerated well. Safe exit of hospital.
== END 2020-12-02 13:24 | disposition home or self-care (01) ==
LOC: CHSTREATRM 13:25
PROVIDERS: PCP Nurse Practitioner Family; Visit Provider Nurse Practitioner Family
DX: E83.42 Hypomagnesemia (principal)
CPT/HCPCS: 36415; 83735; 96365; J3475

== ENCOUNTER 2020-12-07 11:02 | Outpatient (CLI) | payer MEDICARE, BC, SELFPAY ==
[2020-12-07] MEDS: MAGNESIUM SULF 4 GM/WATER100ML 4 GM/100 ML BAG IVPB (11:15)
[2020-12-07 11:31] VITALS: BP 111/59; PULSE 68; RESP 14; O2SAT 97
--- NOTE | 2020-12-07 12:30 | PC.NURSE ---
Patient tolerated IV magnesium infusion for mag level 1.6. No concerns voiced. Safe exit of hospital.
== END 2020-12-07 11:03 | disposition home or self-care (01) ==
LOC: CHSTREATRM 11:04
PROVIDERS: PCP Nurse Practitioner Family; Visit Provider Nurse Practitioner Family
DX: E83.42 Hypomagnesemia (principal)
CPT/HCPCS: 96365; J3475

== ENCOUNTER 2020-12-14 10:58 | Outpatient (CLI) | payer MEDICARE, BC, SELFPAY ==
[2020-12-14 11:42] LABS: Free T4 Free Thyroxine 1.58 ng/dL (0.76-1.46); Magnesium 1.6 mg/dL (1.8-2.4); Thyroid Stimulating Hormone 1.77 uIU/mL (0.36-3.74)
[2020-12-14 13:34] VITALS: BP 110/63; PULSE 68; RESP 14; O2SAT 98
[2020-12-14] MEDS: MAGNESIUM SULF 4 GM/WATER100ML 4 GM/100 ML BAG IVPB (13:35)
== END 2020-12-14 10:59 | disposition home or self-care (01) ==
PROVIDERS: PCP Nurse Practitioner Family; Visit Provider Nurse Practitioner Family
DX: E03.9 Hypothyroidism, unspecified (principal); E83.42 Hypomagnesemia
CPT/HCPCS: 36415; 83735; 84439; 84443; 96365; J3475

== ENCOUNTER 2020-12-22 11:45 | Outpatient (CLI) | payer MEDICARE, BC, SELFPAY ==
[2020-12-22 11:58] VITALS: BP 111/58; PULSE 69; RESP 14; O2SAT 97
[2020-12-22] MEDS: MAGNESIUM SULF 4 GM/WATER100ML 4 GM/100 ML BAG IVPB (11:59)
--- NOTE | 2020-12-22 12:51 | PC.NURSE ---
Patient here for Magnesium IV for Mag level of 1.6. Magnesium infusion administered. Tolerated well. Safe exit of hospital. Will get Mag level rechecked Sunday.
== END 2020-12-22 11:46 | disposition home or self-care (01) ==
PROVIDERS: PCP Nurse Practitioner Family; Visit Provider Nurse Practitioner Family
DX: E83.42 Hypomagnesemia (principal)
CPT/HCPCS: 96365; J3475

== ENCOUNTER 2020-12-25 11:22 | Outpatient (CLI) | payer MEDICARE, SELFPAY ==
[2020-12-25 11:53] LABS: Magnesium 1.7 mg/dL (1.8-2.4)
== END 2020-12-25 11:23 | disposition home or self-care (01) ==
PROVIDERS: PCP Nurse Practitioner Family; Visit Provider Nurse Practitioner Family
DX: E83.42 Hypomagnesemia (principal)
CPT/HCPCS: 36415; 83735

== ENCOUNTER 2021-01-14 12:23 | Outpatient (CLI) | payer MEDICARE, BC, SELFPAY ==
[2021-01-14 12:35] VITALS: BMI 27.6
[2021-01-14 12:36] VITALS: BP 156/77; PULSE 60; RESP 16; TEMP 36.7; O2SAT 96
[2021-01-14] MEDS: MAGNESIUM SULF 4 GM/WATER100ML 4 GM/100 ML BAG IVPB (12:41)
--- NOTE | 2021-01-14 13:52 | PC.NURSE ---
Patient infused Mag 4g 100ml/hr. Tolerated well. Patient denies any side effects. Patient safely ambulated to exit of hospital.
== END 2021-01-14 12:24 | disposition home or self-care (01) ==
LOC: CHSTREATRM 12:26
PROVIDERS: PCP Nurse Practitioner Family; Visit Provider Nurse Practitioner Family
DX: E83.42 Hypomagnesemia (principal)
CPT/HCPCS: 96365; J3475

== ENCOUNTER 2021-01-27 13:58 | Outpatient (CLI) | payer MEDICARE, BC, SELFPAY ==
[2021-01-27 14:05] VITALS: BP 136/70; PULSE 62; RESP 14; O2SAT 97
[2021-01-27] MEDS: MAGNESIUM SULF 4 GM/WATER100ML 4 GM/100 ML BAG IVPB (14:05)
--- NOTE | 2021-01-27 15:13 | PC.NURSE ---
Patient here for Magnesium IV 4 gm infusion r/t Mag level 1.7. No concerns voiced. Patient has had many Magnesium infusions over the years. Magnesium IV administered. Tolerated well. Safe exit of hospital.
== END 2021-01-27 13:59 | disposition home or self-care (01) ==
LOC: CHSTREATRM 14:01
PROVIDERS: PCP Nurse Practitioner Family; Visit Provider Nurse Practitioner Family
DX: E83.42 Hypomagnesemia (principal)
CPT/HCPCS: 36415; 83735; 96365; J3475

== ENCOUNTER 2021-02-04 11:20 | Outpatient (CLI) | payer MEDICARE, BC, SELFPAY ==
[2021-02-04 11:40] VITALS: BMI 27.6
[2021-02-04] MEDS: MAGNESIUM SULF 4 GM/WATER100ML 4 GM/100 ML BAG IVPB (12:28)
[2021-02-04 13:33] VITALS: BP 127/58; PULSE 64; RESP 14; O2SAT 98
--- NOTE | 2021-02-04 13:34 | PC.NURSE ---
Patient's here for Magnesium IV infusion of 4 gm r/t mag level 1.7. Patient has been getting mag infusions in last few weeks. No concerns voiced. Magnesium infusion administered. Tolerated it well. Safe exit of hospital.
== END 2021-02-04 11:21 | disposition home or self-care (01) ==
LOC: CHSOUTPT 11:24 → CHSTREATRM 11:31
PROVIDERS: PCP Nurse Practitioner Family; Visit Provider Nurse Practitioner Family
DX: E83.42 Hypomagnesemia (principal)
CPT/HCPCS: 36415; 83735; 96365; J3475

== ENCOUNTER 2021-02-10 13:39 | Outpatient (CLI) | payer MEDICARE, BC, SELFPAY ==
[2021-02-10] MEDS: MAGNESIUM SULF 2 GM/WATER 50ML 2 GM/50 ML BAG IVPB (13:45)
[2021-02-10 14:13] VITALS: BP 136/70; PULSE 72; RESP 14; TEMP 36.6; O2SAT 97
[2021-02-10 14:14] VITALS: BMI 27.6
--- NOTE | 2021-02-10 14:43 | PC.NURSE ---
Patient here for IV Magnesium infusion. Reports title searcher wants to give 2 gm IV daily x2. No concerns voiced as has had many Mag infusions. IV 2 gm Mag. infusion administered. Tolerated well. Safe exit of hospital. Will be her tomorrow at 12 for #2.
== END 2021-02-10 13:40 | disposition home or self-care (01) ==
LOC: CHSOUTPT 13:42 → CHSTREATRM 13:50
PROVIDERS: PCP Nurse Practitioner Family; Visit Provider Internal Medicine Cardiovascular Disease
DX: E83.42 Hypomagnesemia (principal)
CPT/HCPCS: 96365; J3475

== ENCOUNTER 2021-02-11 11:51 | Outpatient (CLI) | payer MEDICARE, BC, SELFPAY ==
[2021-02-11] MEDS: MAGNESIUM SULF 2 GM/WATER 50ML 2 GM/50 ML BAG IVPB (12:00)
[2021-02-11 12:08] VITALS: BMI 27.7
[2021-02-11 12:52] VITALS: BP 128/63; PULSE 76; RESP 14; TEMP 36.4; O2SAT 98
--- NOTE | 2021-02-11 13:55 | PC.NURSE ---
Patient here for #2 of 2 IV Magnesium infusion. NO concerns voiced. Mag infusion administered. Tolerated well. Safe exit of hospital.
== END 2021-02-11 11:52 | disposition home or self-care (01) ==
PROVIDERS: PCP Nurse Practitioner Family; Visit Provider Internal Medicine Cardiovascular Disease
DX: E83.42 Hypomagnesemia (principal)
CPT/HCPCS: 96365; J3475

== ENCOUNTER 2021-02-15 13:42 | Outpatient (RCR) | payer MEDICARE, SELFPAY ==
[2020-11-19 14:12] LABS: Magnesium 1.5 mg/dL (1.8-2.4)
[2020-11-25 09:42] LABS: Magnesium 1.6 mg/dL (1.8-2.4)
[2020-11-29 11:18] LABS: Magnesium 1.5 mg/dL (1.8-2.4)
[2020-12-02 10:17] LABS: Magnesium 1.7 mg/dL (1.8-2.4)
[2020-12-06 11:27] LABS: Magnesium 1.6 mg/dL (1.8-2.4)
[2020-12-20 09:48] LABS: Magnesium 1.6 mg/dL (1.8-2.4)
[2021-01-06 10:57] LABS: Magnesium 1.8 mg/dL (1.8-2.4)
[2021-01-13 14:06] LABS: Magnesium 1.6 mg/dL (1.8-2.4)
[2021-01-14 12:00] VITALS: BP 156/77; PULSE 60; RESP 16; TEMP 36.7; O2SAT 96
[2021-01-14 12:08] VITALS: BMI 27.6
[2021-01-19 13:44] LABS: Magnesium 1.7 mg/dL (1.8-2.4)
[2021-01-27 11:16] LABS: Magnesium 1.7 mg/dL (1.8-2.4)
[2021-02-04 10:59] LABS: Magnesium 1.7 mg/dL (1.8-2.4)
[2021-02-07 09:52] LABS: Magnesium 1.6 mg/dL (1.8-2.4)
[2021-02-15 14:11] LABS: Magnesium 1.6 mg/dL (1.8-2.4)
== END 2021-02-17 23:59 | disposition home or self-care (01) ==
LOC: CHSLAB 13:42
PROVIDERS: PCP Nurse Practitioner Family; Visit Provider Nurse Practitioner Family
DX: E83.42 Hypomagnesemia (principal)
CPT/HCPCS: 36415; 83735

== ENCOUNTER 2021-02-23 08:09 | Outpatient (CLI) | payer MEDICARE, SELFPAY ==
[2021-02-23 08:22] LABS: Basophils Absolute Auto 0.08 K/mm3 (0.00-0.10); Basophils Percent Auto 1.2 % (0.0-1.0); Eosinophils Absolute Auto 0.18 K/mm3 (0.02-0.50); Eosinophils Percent Auto 2.8 % (1.0-6.0); Hematocrit 44.8 % (35.0-42.0); Hemoglobin 15.3 g/dL (11.7-13.8); Immature Granulocyte Absolute 0.01 K/mm3 (0.00-0.00); Immature Granulocyte Percent A 0.2 % (0.0-0.0); Lymphocytes Absolute Auto 2.07 K/mm3 (1.10-4.50); Lymphocytes Percent Auto 32.2 % (18.0-42.0); Mean Corpuscular HGB Conc 34.2 g/dL (32.0-36.0); Mean Corpuscular Volume 102.5 fL (78.0-102.0); Mean Platelet Volume 9.3 fl (9.2-11.8); Monocytes Absolute Auto 0.58 K/mm3 (0.10-0.90); Neutrophils Absolute Auto 3.5 K/mm3 (1.7-7.2); Neutrophils Percent Auto 54.6 % (50.0-70.0); Platelet Count Result 241 K/mm3 (150-420); Red Blood Count 4.37 M/mm3 (4.20-5.40); White Blood Count 6.4 K/mm3 (4.8-10.8)
[2021-02-23 09:46] LABS: Alanine Aminotransferase 25 U/L (14-59); Albumin Level 4.3 g/dL (3.4-5.0); Alkaline Phosphatase 39 U/L (46-116); Anion Gap 8 mmol/L (8-16); Aspartate Amino Transferase 21 U/L (15-37); Bilirubin,Total 1.1 mg/dL (0.00-1.00); Blood Urea Nitrogen 22 mg/dL (7-18); Calcium 10.6 mg/dL (8.5-10.1); Carbon Dioxide 31 mmol/L (21-32); Chloride 103 mmol/L (98-108); Estimated Glomerular Filt Rate 51; Glucose 83 mg/dL (70-99); Magnesium 1.4 mg/dL (1.8-2.4); Osmolality Calculated 296 mOsm/kg (285-295); Phosphorus 3.3 mg/dL (2.6-4.7); Potassium 4.2 mmol/L (3.5-5.1); Sodium 142 mmol/L (136-145); Total Protein 7.4 g/dL (6.4-8.2)
[2021-02-23 11:31] LABS: Appearance Urine Sl Cloudy (Clear); Bilirubin Urine Negative (Negative); Color Urine Light Yellow (Yellow); Glucose Urine UA Negative (Negative); Ketones Urine Negative (Negative); Leukocyte Esterase Ur 2+ (Negative); Nitrate Urine Negative (Negative); Protein Urine Negative (Negative); Specific Grav Ur 1.015 (1.010-1.020); Urobilinogen Urine 0.2 mg/dL (0.2-1.0); pH Urine 6.5 (5.0-8.0)
[2021-02-23 11:36] LABS: Add Urine Microscopic? YES; Bacteria Urine 2+ /hpf; Blood Urine Trace-Intact (Negative); RBC Urine 0-2 /hpf (0-2); Squamous Epithelial Cell Urine Moderate /hpf (Few)
== END 2021-02-23 08:10 | disposition home or self-care (01) ==
LOC: CHSLAB 08:11
PROVIDERS: PCP Internal Medicine; Visit Provider Internal Medicine
DX: I25.10 Atherosclerotic heart disease of native coronary artery without angina pectoris (principal); E83.42 Hypomagnesemia; E03.9 Hypothyroidism, unspecified
CPT/HCPCS: 36415; 80053; 81001; 83735; 84100; 84443; 85025

== ENCOUNTER 2021-02-24 07:54 | Outpatient (CLI) | payer MEDICARE, SELFPAY ==
[2021-02-24 08:55] LABS: Calcium 10.1 mg/dL (8.5-10.1)
[2021-02-27 15:54] LABS: Ionized Calcium 5.7 mg/dL (4.8-5.6)
[2021-02-27 16:24] LABS: Parathyroid Intact 21 pg/mL (14-64)
[2021-02-28 10:32] LABS: Vitamin D 1,25 (OH)2 Total 30 pg/mL (18-72); Vitamin D2 1,25 (OH)2 <8 pg/mL; Vitamin D3 1,25 (OH)2 30 pg/mL
[2021-02-28 14:47] LABS: Vitamin D 25 Hydroxy 33 ng/mL (30-100)
== END 2021-02-24 07:55 | disposition home or self-care (01) ==
LOC: CHSLAB 07:55
PROVIDERS: PCP Internal Medicine; Visit Provider Internal Medicine
DX: E83.52 Hypercalcemia (principal)
CPT/HCPCS: 36415; 82306; 82310; 82330; 82652; 83970

== ENCOUNTER 2021-02-24 20:41 | Emergency (ER) | payer MEDICARE, BC, SELFPAY ==
[2021-02-24 20:50] VITALS: BP 166/89; PULSE 113; RESP 20; TEMP 37; O2SAT 95
--- NOTE | 2021-02-24 21:09 | ECG_ITS ---
Measurements Intervals [place] Rate: 107 P: SC: 0 QRS: -2 QRSD: 89 T: -21 QT: 358 QTc: 478 Interpretive Statements ECTOPIC ATRIAL TACHYCARDIA BORDERLINE ST-T WAVE ABNORMALITY- ANT/INF LEADS BASELINE ARTIFACT- II, III, AVF ABNORMAL ECG Electronically Signed On 02-25-2021 6:03:07 CDT by Mo Betancur D.O.
[2021-02-24 21:29] LABS: Basophils Absolute Auto 0.08 K/mm3 (0.00-0.10); Basophils Percent Auto 1.1 % (0.0-1.0); Eosinophils Absolute Auto 0.16 K/mm3 (0.02-0.50); Eosinophils Percent Auto 2.2 % (1.0-6.0); Hematocrit 45.2 % (35.0-42.0); Hemoglobin 15.2 g/dL (11.7-13.8); Immature Granulocyte Absolute 0.02 K/mm3 (0.00-0.00); Immature Granulocyte Percent A 0.3 % (0.0-0.0); Lymphocytes Absolute Auto 2.39 K/mm3 (1.10-4.50); Lymphocytes Percent Auto 33.5 % (18.0-42.0); Mean Corpuscular HGB Conc 33.6 g/dL (32.0-36.0); Mean Corpuscular Hemoglobin 34.2 pg (27.0-31.0); Mean Corpuscular Volume 101.6 fL (78.0-102.0); Mean Platelet Volume 9.5 fl (9.2-11.8); Monocytes Absolute Auto 0.63 K/mm3 (0.10-0.90); Monocytes Percent Auto 8.8 % (2.0-11.0); Neutrophils Absolute Auto 3.9 K/mm3 (1.7-7.2); Neutrophils Percent Auto 54.1 % (50.0-70.0); Platelet Count Result 250 K/mm3 (150-420); Red Blood Count 4.45 M/mm3 (4.20-5.40); Red Cell Distribution Width 11.9 % (11.6-14.4); White Blood Count 7.1 K/mm3 (4.8-10.8)
--- NOTE | 2021-02-24 21:34 | ED.GENADULT ---
HPI - General Adult General Chief complaint: Recheck/Abnormal Lab/Rx Stated complaint: Low magnesium Source: patient Mode of arrival: ambulatory Limitations: no limitations History of Present Illness HPI narrative: Peyton is a 80F with a PMH of OA, ABEL, hypothyroidism, HTN, and low magnesium that leads to SVT. She came in with palpitations that started a couple hours ago. It is described as a racing in her chest but no true CP. No N/V or lightheadedness. However, she stated that she started to get anxious. then it got a little faster so she came in. She is scheduled to get 7g of Mg over 4 hours tomorrow by IV. Related Data Home Medications Medication Instructions Recorded Confirmed acetaminophen 325 mg tablet 325 mg PO Q6H PRN 05/20/19 02/24/21 aspirin 81 mg tablet,delayed 81 mg PO DAILY 05/20/19 02/24/21 release magnesium oxide 105 mg PO BID cap 05/20/19 02/24/21 spironolactone 100 mg tablet 25 mg PO DAILY 05/20/19 02/24/21 alprazolam 0.5 mg PO HS 11/15/19 02/24/21 metoprolol tartrate See Rx Instructions .ROUTE .COMPLEX 02/24/21 02/24/21 Allergies Allergy/AdvReac Type Severity Reaction Status Date / Time codeine Allergy Intermediate Unknown Verified 01/13/21 08:52 magnesium citrate Allergy Intermediate diarrhea Verified 01/13/21 08:52 sulfisoxazole Allergy Intermediate Unknown Verified 01/13/21 08:52 iohexol Allergy Flushing Verified 01/13/21 08:52 [From contrast - CT, X-RAY] Review of Systems Constitutional: Constitutional: Reports no additional constitutional complaints Eyes: Eyes: Reports no additional eye complaints ENT: Reports system reviewed and no additional complaints, except as documented Cardiovascular: Cardiovascular: Reports as per HPI Respiratory: Respiratory: Reports no additional respiratory complaints Gastrointestinal: Gastrointestinal: Reports no additional gastrointestinal complaints Genitourinary: Genitourinary: Reports no additional female genitourinary complaints Musculoskeletal: Musculoskeletal: Reports no additional musculoskeletal complaints Integumentary/Breasts: Skin/Breast: Reports system reviewed and no additional complaints, except as docu Neurologic: Reports system reviewed and no additional complaints, except as documented Psychiatric: Psychiatric: Reports anxiety Endocrine: Endocrine: Reports no additional endocrine complaints Hematologic/Lymphatic: Hematologic/Lymphatic: Reports no additional hematologic/lymphatic complaints Allergic/Immunologic: Allergic/Immunologic: Reports no additional allergic/immunologic complaints [facility] Past Medical History Medical History (Updated 02/24/21 @ 23:11 by Joshua Whelan DO) Adult hypothyroidism Aftercare following knee joint replacement surgery External hemorrhoids ABEL (generalized anxiety disorder) GERD (gastroesophageal reflux disease) HTN (hypertension) (02/28/18) Hypomagnesemia (01/17/18) Sleep apnea SVT (supraventricular tachycardia) Surgical History Surgical History History of appendectomy History of hernia repair History of lumpectomy of left breast Hx laparoscopic cholecystectomy Hx of coronary artery disease Hx of joint replacement Hx of small bowel obstruction Family History Family History Father Family history of chronic obstructive pulmonary disease Family history of coronary artery disease Father Family history of coronary artery disease Family history of chronic obstructive pulmonary disease Mother Hypertension Mother Hypertension Father Family history of coronary artery disease Family history of chronic obstructive pulmonary disease Other Diabetes mellitus Family history of arthritis Family history of cardiovascular disease Family history of gout Social History Social History Smoking status: Never smoker T
[2021-02-24 21:44] LABS: D Dimer 0.44 mg/L (0.19-0.50); Prothrombin Time 10.6 Seconds (9.50-12.10)
[2021-02-24 21:47] LABS: Phosphorus 2.8 mg/dL (2.6-4.7)
[2021-02-24] MEDS: ALPRAZolam (*CRX) 0.5 MG TABLET PO (21:50)
--- NOTE | 2021-02-24 21:50 | PC.NURSE ---
pt sitting up in wheelchair. complaint of discomfort to back related to arthritis. call alfred in reach.
[2021-02-24 21:54] LABS: Alanine Aminotransferase 23 U/L (14-59); Albumin Level 4.1 g/dL (3.4-5.0); Alkaline Phosphatase 51 U/L (46-116); Anion Gap 10 mmol/L (8-16); Aspartate Amino Transferase 20 U/L (15-37); Bilirubin,Total 0.5 mg/dL (0.00-1.00); Blood Urea Nitrogen 25 mg/dL (7-18); Calcium 10.3 mg/dL (8.5-10.1); Carbon Dioxide 27 mmol/L (21-32); Chloride 104 mmol/L (98-108); Estimated CRCL calculation 33 ml/min; Estimated Glomerular Filt Rate 43; Glucose 153 mg/dL (70-99); Magnesium 1.4 mg/dL (1.8-2.4); NT Pro B Type Natriuretic Pept 573 pg/mL (0-450); Osmolality Calculated 299 mOsm/kg (285-295); Potassium 4.8 mmol/L (3.5-5.1); Sodium 141 mmol/L (136-145); Thyroid Stimulating Hormone 2.61 uIU/mL (0.36-3.74); Total Protein 7.6 g/dL (6.4-8.2); Troponin I 8.7 ng/L (0.00-60.4)
[2021-02-24 22:39] VITALS: BP 140/96; PULSE 89; RESP 20; O2SAT 98
--- NOTE | 2021-02-24 22:42 | ECG_ITS ---
Measurements Intervals [place] Rate: 89 P: NE: 0 QRS: 2 QRSD: 83 T: -13 QT: 339 QTc: 412 Interpretive Statements ECTOPIC ATRIAL RHYTHM LOW QRS VOLTAGE IN PRECORDIAL LEADS CANNOT RULE OUT SEPTAL INFARCT, AGE INDETERMINATE BORDERLINE ST-T WAVE ABNORMALITY- INFERIOR LEADS BASELINE ARTIFACT- I, II, III, AVR, AVL, AVF, V1-V6 ABNORMAL ECG Electronically Signed On 02-25-2021 6:04:40 CDT by Mo Betancur D.O.
[2021-02-24] MEDS: ENOXAPARIN 40 MG/0.4 ML SYRINGE SUB-Q (23:01)
[2021-02-24 23:11] VITALS: BP 141/94; PULSE 95; RESP 20; TEMP 37.1; O2SAT 98
== END 2021-02-24 23:20 | disposition home or self-care (01) ==
PROVIDERS: Emergency Provider Family Medicine; PCP Internal Medicine
DX: E83.42 Hypomagnesemia (principal); I48.91 Unspecified atrial fibrillation
CPT/HCPCS: 36415; 80053; 82306; 82310; 82330; 82652; 83735; 83880; 83970; 84100; 84443; 84484; 85025; 85380; 85610; 93005; 96372; 99283; 99284; A9270; J1650

== ENCOUNTER 2021-02-25 08:26 | Outpatient (CLI) | payer MEDICARE, BC, SELFPAY ==
[2021-02-25 08:57] VITALS: BP 118/68; PULSE 84; RESP 14; TEMP 36.6; O2SAT 98
[2021-02-25 08:58] VITALS: BMI 27.2
--- NOTE | 2021-02-25 12:43 | PC.NURSE ---
Patient tolerated IV Magnesium infusion well for Mag of 1.4. Safe exit of hospital.
== END 2021-02-25 08:27 | disposition home or self-care (01) ==
LOC: CHSTREATRM 08:28
PROVIDERS: PCP Internal Medicine; Visit Provider Internal Medicine
DX: E83.42 Hypomagnesemia (principal)
CPT/HCPCS: 96365; 96366; J3475; J7050

== ENCOUNTER 2021-03-14 08:36 | Outpatient (CLI) | payer MEDICARE, BC, SELFPAY ==
--- NOTE | ~2021-03-14 | XR_ITS ---
EXAMINATION: XR chest 2V DATE: 03/14/2021 14:23 INDICATION: Hypercalcemia. TECHNIQUE: Frontal and lateral views of the chest were obtained. COMPARISON: Chest single view 06/02/2018 FINDINGS: The chest demonstrates clear lungs without pneumonia, pleural effusion, or pneumothorax. Th e heart size is normal. Surgical clips in the right upper quadrant are likely from cholecystectomy. IMPRESSION: 1. No acute cardiopulmonary disease. Reviewed, dictated and finalized at location A.
[2021-03-14 09:20] LABS: Alanine Aminotransferase 20 U/L (14-59); Albumin Level 4.1 g/dL (3.4-5.0); Alkaline Phosphatase 42 U/L (46-116); Anion Gap 7 mmol/L (8-16); Aspartate Amino Transferase 14 U/L (15-37); Bilirubin,Total 1.2 mg/dL (0.00-1.00); Blood Urea Nitrogen 23 mg/dL (7-18); Calcium 10.3 mg/dL (8.5-10.1); Carbon Dioxide 31 mmol/L (21-32); Chloride 102 mmol/L (98-108); Estimated Glomerular Filt Rate 44; Glucose 88 mg/dL (70-99); Magnesium 1.6 mg/dL (1.8-2.4); Osmolality Calculated 292 mOsm/kg (285-295); Potassium 4.5 mmol/L (3.5-5.1); Sodium 140 mmol/L (136-145); Total Protein 7.2 g/dL (6.4-8.2)
== END 2021-03-14 08:37 | disposition home or self-care (01) ==
PROVIDERS: PCP Internal Medicine; Visit Provider Internal Medicine
DX: E83.52 Hypercalcemia (principal)
CPT/HCPCS: 36415; 71046; 80053; 83735

== ENCOUNTER 2021-03-23 09:32 | Outpatient (CLI) | payer MEDICARE, BC, SELFPAY ==
[2021-03-23 09:52] VITALS: BP 152/78; PULSE 90; RESP 18; TEMP 36.6; O2SAT 97; BMI 28.2
--- NOTE | 2021-03-23 13:10 | PC.NURSE ---
1310--Patient tolerated the Mag Sulfate infusion well. Denies any side effects. Education provide on oral Magnesium supplements. Patient verbalized understanding. Patient safely ambulated from the OP treatment room. --Rufus BAJWA
== END 2021-03-23 09:33 | disposition home or self-care (01) ==
LOC: CHSTREATRM 09:35
PROVIDERS: PCP Internal Medicine; Visit Provider Internal Medicine
DX: E83.42 Hypomagnesemia (principal)
CPT/HCPCS: 96365; 96366; J3475; J7050

== ENCOUNTER 2021-03-31 12:12 | Outpatient (CLI) | payer MEDICARE, BC, SELFPAY ==
[2021-03-31 12:18] VITALS: BMI 26.6
[2021-03-31 12:30] VITALS: BP 128/87; PULSE 80; RESP 14; TEMP 36.3; O2SAT 98
--- NOTE | 2021-03-31 15:38 | PC.NURSE ---
Patient tolerated IV Mag infusion well for low mag level 1.4. Safe exit of hospital.
== END 2021-03-31 12:13 | disposition home or self-care (01) ==
PROVIDERS: PCP Internal Medicine; Visit Provider Internal Medicine
DX: E83.42 Hypomagnesemia (principal)
CPT/HCPCS: 96365; 96366; J3475; J7050

== ENCOUNTER 2021-04-06 10:02 | Outpatient (CLI) | payer MEDICARE, BC, SELFPAY ==
[2021-04-06 10:32] VITALS: BMI 28.2
[2021-04-06 10:34] VITALS: BP 146/92; PULSE 108; RESP 18; TEMP 35.9; O2SAT 96
--- NOTE | 2021-04-06 13:51 | PC.NURSE ---
Patient here for IV Magnesium r/t low mag 1.4. Patient received this last week and counts didn't go up. Patient getting flustered . Patient states, Dr. Araya is going to send her to a specialist. IV Magnesium administered (see MAR). Tolerated well. Safe exit of hospital.
== END 2021-04-06 10:03 | disposition home or self-care (01) ==
LOC: CHSTREATRM 10:04
PROVIDERS: PCP Internal Medicine; Visit Provider Internal Medicine
DX: E83.42 Hypomagnesemia (principal)
CPT/HCPCS: 96365; 96366; J3475; J7050

== ENCOUNTER 2021-04-11 08:37 | Emergency (ER) | payer MEDICARE, BC, SELFPAY ==
--- NOTE | ~2021-04-11 | CT_ITS ---
EXAMINATION: CT abdomen pelvis wo con EXAM DATE: 04/11/2021 10:39 INDICATION: Rectal cramping and bleeding. TECHNIQUE: Spiral CT of the abdomen and pelvis was performed without contrast. Axial, coronal and sag ittal images were reviewed. The dose-length product (DLP) for this examination was 733.04 mGy-cm. T he exposure was tailored according to patient size (auto mA exposure control), and iterative reconstr uction (ASIR) was used as additional dose reduction technique. Comparison is made to prior examinatio n from 10/17/2011. FINDINGS: There are 2 punctate right calyceal stones, nonobstructing. Somewhat difficult to follow po rtions of the ureters bilaterally, but there is no hydronephrosis to suggest ureteral stone. The kaibab yandel is not identified and has likely been surgically resected. The bladder is undistended at time of imaging. Couple of small liver cysts measuring up to 1.8 cm. Mild left adrenal gland hyperplasia. T he pancreas and spleen are unremarkable. There are cholecystectomy clips. There is no retroperitone al or pelvic lymphadenopathy. There is moderate to severe scattered arteriosclerotic disease. There is small bowel anastomosis with chronically patulous small bowel activity anastomosis site. The appendix is not positively visualized. There is no pericecal inflammatory change to suggest appendi citis. There is moderate sigmoid predominant colonic diverticulosis. There is no adjacent inflammato ry change to suggest diverticulitis. There is expected amount of colonic stool. No free intraperito urszula gas. The heart is normal in size. There are no pericardial or pleural effusions. The lung ba ses are unremarkable. There are no osteoblastic or osteolytic lesions identified. There is advanced lower lumbar facet arthropathy. There is grade 1 anterolisthesis L4 on L5. IMPRESSION: 1. No acute intra-abdominal findings. 2. Scattered colonic diverticulosis. 3. Punctate right nephrolithiasis. 4. Surgical changes. Reviewed, dictated and finalized at location A.
[2021-04-11 09:05] VITALS: BP 156/109; PULSE 105; RESP 16; TEMP 36.4; O2SAT 96
[2021-04-11 10:15] LABS: Add Urine Microscopic? YES; Appearance Urine Sl Cloudy (Clear); Bilirubin Urine Negative (Negative); Blood Urine 1+ (Negative); Color Urine Light Yellow (Yellow); Glucose Urine UA Negative (Negative); Ketones Urine Negative (Negative); Leukocyte Esterase Ur Negative (Negative); Nitrate Urine Negative (Negative); Protein Urine Trace (Negative); Urobilinogen Urine 0.2 mg/dL (0.2-1.0); pH Urine 6.5 (5.0-8.0)
[2021-04-11 10:22] LABS: Occult Blood Negative (Negative)
[2021-04-11 10:22] LABS: Basophils Absolute Auto 0.08 K/mm3 (0.00-0.10); Eosinophils Absolute Auto 0.04 K/mm3 (0.02-0.50); Eosinophils Percent Auto 0.5 % (1.0-6.0); Hematocrit 47.6 % (35.0-42.0); Hemoglobin 16.1 g/dL (11.7-13.8); Immature Granulocyte Absolute 0.02 K/mm3 (0.00-0.00); Immature Granulocyte Percent A 0.2 % (0.0-0.0); Lymphocytes Absolute Auto 1.53 K/mm3 (1.10-4.50); Mean Corpuscular HGB Conc 33.8 g/dL (32.0-36.0); Mean Corpuscular Hemoglobin 34.5 pg (27.0-31.0); Mean Corpuscular Volume 101.9 fL (78.0-102.0); Mean Platelet Volume 9.5 fl (9.2-11.8); Monocytes Percent Auto 8.7 % (2.0-11.0); Neutrophils Absolute Auto 5.7 K/mm3 (1.7-7.2); Neutrophils Percent Auto 70.6 % (50.0-70.0); Platelet Count Result 245 K/mm3 (150-420); Red Blood Count 4.67 M/mm3 (4.20-5.40); Red Cell Distribution Width 12.6 % (11.6-14.4)
[2021-04-11 10:24] LABS: Squamous Epithelial Cell Urine Moderate /hpf (Few); WBC Urine 0-3 /hpf (0-3)
[2021-04-11 10:25] LABS: Bacteria Urine 4+ /hpf
[2021-04-11 10:36] LABS: INR 1.1; Partial Thromboplastin Time 33.8 SEC (23.90-30.70); Prothrombin Time 11.9 Seconds (9.50-12.10)
[2021-04-11 10:36] LABS: Alanine Aminotransferase 21 U/L (14-59); Alkaline Phosphatase 46 U/L (46-116); Anion Gap 10 mmol/L (8-16); Aspartate Amino Transferase 16 U/L (15-37); Bilirubin,Total 0.8 mg/dL (0.00-1.00); Blood Urea Nitrogen 24 mg/dL (7-18); Carbon Dioxide 28 mmol/L (21-32); Chloride 102 mmol/L (98-108); Estimated CRCL calculation 45 ml/min; Estimated Glomerular Filt Rate 54; Glucose 95 mg/dL (70-99); Lipase 94 U/L (73-393); Magnesium 1.4 mg/dL (1.8-2.4); Osmolality Calculated 294 mOsm/kg (285-295); Potassium 4.4 mmol/L (3.5-5.1); Sodium 140 mmol/L (136-145); Total Protein 7.2 g/dL (6.4-8.2)
[2021-04-11 10:50] LABS: Lactic Acid Reflex 1.1 mmol/L (0.4-2.0)
[2021-04-11] MEDS: ONDANSETRON INJ 4 MG/2 ML VIAL IV PUSH (11:00)
[2021-04-11] MEDS: SODIUM CHLORIDE 0.9% IV 1,000 ML 150 ML IV CONT (11:00)
[2021-04-11] MEDS: PANTOPRAZOLE SODIUM IV 40 MG VIAL IV PUSH (11:05)
--- NOTE | 2021-04-11 12:57 | ED.GIBLEED ---
HPI - GI Bleed General Chief complaint: GI Bleed Stated complaint: PASSING BLOOD Time Seen by Provider: 04/11/21 08:40 Source: patient and RN notes reviewed Mode of arrival: ambulatory Limitations: no limitations History of Present Illness complaint: blood on toilet paper and other (passed 1-2 cupfuls of blood rectal x 2 days. no vomiting, dizziness ) Onset (ago): day(s) (2) Pain Consistency: colicky Severity: moderate Relieving factors: none Exacerbating factors: none Context: history of GI bleed, hemorrhoids and anticoagulant use Associated symptoms: abdominal pain and nausea Related Data Home Medications Medication Instructions Recorded Confirmed acetaminophen 325 mg tablet 325 mg PO Q6H PRN 05/20/19 04/11/21 magnesium oxide 105 mg PO BID cap 05/20/19 04/11/21 alprazolam 0.5 mg PO HS PRN 11/15/19 04/11/21 metoprolol tartrate 25 mg PO DAILY 02/24/21 04/11/21 fenofibrate micronized 134 mg PO DAILY 04/11/21 04/11/21 fluticasone propionate 2 spray INTRANASAL DAILY 04/11/21 04/11/21 spironolactone 12.5 mg PO DAILY 04/11/21 04/11/21 Allergies Allergy/AdvReac Type Severity Reaction Status Date / Time codeine Allergy Intermediate Unknown Verified 01/13/21 08:52 magnesium citrate Allergy Intermediate diarrhea Verified 01/13/21 08:52 sulfisoxazole Allergy Intermediate Unknown Verified 01/13/21 08:52 iohexol Allergy Flushing Verified 01/13/21 08:52 [From contrast - CT, X-RAY] Review of Systems Review of Systems: All systems reviewed & are unremarkable except as noted in HPI and below PMFSH Past Medical History Medical History Adult hypothyroidism Aftercare following knee joint replacement surgery External hemorrhoids ABEL (generalized anxiety disorder) GERD (gastroesophageal reflux disease) HTN (hypertension) (02/28/18) Hypomagnesemia (01/17/18) Sleep apnea SVT (supraventricular tachycardia) Surgical History Surgical History History of appendectomy History of hernia repair History of lumpectomy of left breast Hx laparoscopic cholecystectomy Hx of coronary artery disease Hx of joint replacement Hx of small bowel obstruction Family History Family History Father Family history of chronic obstructive pulmonary disease Family history of coronary artery disease Father Family history of coronary artery disease Family history of chronic obstructive pulmonary disease Mother Hypertension Mother Hypertension Father Family history of coronary artery disease Family history of chronic obstructive pulmonary disease Other Diabetes mellitus Family history of arthritis Family history of cardiovascular disease Family history of gout Social History Social History Smoking status: Never smoker Tobacco type: cigarettes Alcohol intake: never Substance use: never Substance use type: does not use Gender identity (if verbalized by the patient): Female Exam Const: General: no acute distress and alert Nutritional Appearance: well nourished Orientation/consciousness: patient oriented x3 HENMT: Ears: external ears normal and TM's normal bilaterally General nose exam: Normal external nose present and Normal nares present Mouth: Yes lip normal and Yes moist mucous membranes Teeth and gingiva: dentition normal Eyes: Conjunctivae: conjunctivae normal Pupils: Equal, round and reactive pupils present EOM: EOMs intact bilaterally Neck: Neck: normal visual inspection Chest: Chest palpation & inspection: normal inspection of the chest Resp: Effort & Inspection: normal respiratory effort Auscultation: clear to auscultation bilaterally Cardio: Rate: regular rate Rhythm: regular rhythm GI: GI Palp: Yes Soft to palpation and Yes Tenderness to palpation present (GI) (minimal
[2021-04-11] MEDS: cloNIDine HCL 0.2 MG TABLET PO (13:14)
[2021-04-11] MEDS: MAGNESIUM OXIDE 400 MG TABLET PO (13:14)
[2021-04-11 13:53] VITALS: BP 153/110; PULSE 90; RESP 16; O2SAT 98
== END 2021-04-11 13:54 | disposition home or self-care (01) ==
PROVIDERS: Emergency Provider Emergency Medicine; PCP Internal Medicine
DX: K64.0 First degree hemorrhoids (principal); E83.42 Hypomagnesemia; K60.2 Anal fissure, unspecified; E03.9 Hypothyroidism, unspecified; I10 Essential (primary) hypertension; K21.9 Gastro-esophageal reflux disease without esophagitis
CPT/HCPCS: 36415; 74176; 80053; 81001; 83605; 83690; 83735; 85025; 85610; 85730; 96361; 96365; 96375; 99283; 99284; A9270; C9113; J0696; J2405; J7030

== ENCOUNTER 2021-04-13 12:27 | Outpatient (CLI) | payer MEDICARE, BC, SELFPAY ==
--- NOTE | 2021-04-13 15:18 | PC.NURSE ---
Mag infusion continues. Pt has no complaints.
--- NOTE | 2021-04-13 16:00 | PC.NURSE ---
Magnesium infused. Pt tolerated well. Has no complaints. Pt discharged to home amb. picked up at front door.
== END 2021-04-13 12:28 | disposition home or self-care (01) ==
PROVIDERS: PCP Internal Medicine; Visit Provider Internal Medicine
DX: E83.42 Hypomagnesemia (principal)
CPT/HCPCS: 96365; 96366; J3475; J7050

== ENCOUNTER 2021-04-20 12:01 | Outpatient (CLI) | payer MEDICARE, BC, SELFPAY ==
--- NOTE | 2021-04-20 12:10 | PC.NURSE ---
Pt to outpatient infusion center. A&Ox3. Oriented to room. Call alfred in reach. Has no complaints or questions. Reminded to voice concerns.
[2021-04-20 12:20] VITALS: BMI 26.6
[2021-04-20 12:25] VITALS: BP 135/79; PULSE 89; RESP 14; TEMP 36.6; O2SAT 98
--- NOTE | 2021-04-20 16:11 | PC.NURSE ---
Patient tolerated IV Mag infusion r/t mag level being 1.5. see MAR. NO concerns voiced. Safe exit of hospital.
== END 2021-04-20 12:02 | disposition home or self-care (01) ==
PROVIDERS: PCP Internal Medicine; Visit Provider Internal Medicine
DX: E83.42 Hypomagnesemia (principal)
CPT/HCPCS: 96365; 96366; 96367; J3475; J7050

== ENCOUNTER 2021-04-21 19:32 | Emergency (ER) | payer MEDICARE, BC, SELFPAY ==
[2021-04-21 19:35] VITALS: BP 160/108; PULSE 96; RESP 18; TEMP 36.6; O2SAT 98
[2021-04-21 20:28] LABS: Basophils Absolute Auto 0.08 K/mm3 (0.00-0.10); Eosinophils Absolute Auto 0.14 K/mm3 (0.02-0.50); Eosinophils Percent Auto 1.7 % (1.0-6.0); Hematocrit 48.3 % (35.0-42.0); Hemoglobin 16.1 g/dL (11.7-13.8); Immature Granulocyte Absolute 0.03 K/mm3 (0.00-0.00); Immature Granulocyte Percent A 0.4 % (0.0-0.0); Lymphocytes Absolute Auto 2.42 K/mm3 (1.10-4.50); Lymphocytes Percent Auto 29.5 % (18.0-42.0); Mean Corpuscular HGB Conc 33.3 g/dL (32.0-36.0); Mean Corpuscular Hemoglobin 34.3 pg (27.0-31.0); Mean Corpuscular Volume 102.8 fL (78.0-102.0); Mean Platelet Volume 9.5 fl (9.2-11.8); Monocytes Absolute Auto 0.83 K/mm3 (0.10-0.90); Monocytes Percent Auto 10.1 % (2.0-11.0); Neutrophils Absolute Auto 4.7 K/mm3 (1.7-7.2); Neutrophils Percent Auto 57.3 % (50.0-70.0); Platelet Count Result 298 K/mm3 (150-420); Red Cell Distribution Width 12.5 % (11.6-14.4); White Blood Count 8.2 K/mm3 (4.8-10.8)
[2021-04-21 20:30] LABS: Occult Blood Positive (Negative)
[2021-04-21 20:42] LABS: INR 1.1; Prothrombin Time 11.8 Seconds (9.50-12.10)
[2021-04-21 20:43] LABS: Alanine Aminotransferase 26 U/L (14-59); Albumin Level 4.2 g/dL (3.4-5.0); Alkaline Phosphatase 47 U/L (46-116); Anion Gap 9 mmol/L (8-16); Aspartate Amino Transferase 16 U/L (15-37); Bilirubin,Total 0.8 mg/dL (0.00-1.00); Blood Urea Nitrogen 20 mg/dL (7-18); Calcium 9.8 mg/dL (8.5-10.1); Carbon Dioxide 29 mmol/L (21-32); Chloride 100 mmol/L (98-108); Estimated Glomerular Filt Rate 51; Glucose 100 mg/dL (70-99); Osmolality Calculated 288 mOsm/kg (285-295); Potassium 4.2 mmol/L (3.5-5.1); Sodium 138 mmol/L (136-145); Total Protein 7.5 g/dL (6.4-8.2)
--- NOTE | 2021-04-21 20:59 | ED.GIBLEED ---
HPI - GI Bleed General Chief complaint: GI Bleed Stated complaint: rectal bleeding Source: patient and family History of Present Illness HPI Narrative: this is a 80-year-old female with a history of lower GI bleed from what appears to be issues with fissures and hemorrhoids was seen in our facility on April 13 and had an H&H performed that was stable and was sent home with close follow-up with her primary care physician and has a referral to see her GI doctor. The patient has a history of atrial fibrillation and has been on Xarelto. Currently there is no dizziness no nausea vomiting no abdominal pain no fever chills. complaint: blood streaked stool Onset (ago): day(s) Pain Consistency: intermittent Severity: mild Relieving factors: none Exacerbating factors: none Context: history of GI bleed and hemorrhoids Related Data Home Medications Medication Instructions Recorded Confirmed acetaminophen 325 mg tablet 325 mg PO Q6H PRN 05/20/19 04/13/21 magnesium oxide 105 mg PO BID cap 05/20/19 04/13/21 alprazolam 0.5 mg PO HS PRN 11/15/19 04/13/21 metoprolol tartrate 25 mg PO DAILY 02/24/21 04/13/21 fenofibrate micronized 134 mg PO DAILY 04/11/21 04/13/21 fluticasone propionate 2 spray INTRANASAL DAILY 04/11/21 04/13/21 spironolactone 12.5 mg PO DAILY 04/11/21 04/13/21 Allergies Allergy/AdvReac Type Severity Reaction Status Date / Time codeine Allergy Intermediate Unknown Verified 01/13/21 08:52 magnesium citrate Allergy Intermediate diarrhea Verified 01/13/21 08:52 sulfisoxazole Allergy Intermediate Unknown Verified 01/13/21 08:52 iohexol Allergy Flushing Verified 01/13/21 08:52 [From contrast - CT, X-RAY] Review of Systems Review of Systems: All systems reviewed & are unremarkable except as noted in HPI and below PMFSH Past Medical History Medical History (Updated 04/21/21 @ 21:07 by Roberto Love MD) Adult hypothyroidism Aftercare following knee joint replacement surgery External hemorrhoids ABEL (generalized anxiety disorder) GERD (gastroesophageal reflux disease) HTN (hypertension) (02/28/18) Hypomagnesemia (07/05/18) Sleep apnea SVT (supraventricular tachycardia) Surgical History Surgical History History of appendectomy History of hernia repair History of lumpectomy of left breast Hx laparoscopic cholecystectomy Hx of coronary artery disease Hx of joint replacement Hx of small bowel obstruction Family History Family History Father Family history of chronic obstructive pulmonary disease Family history of coronary artery disease Father Family history of coronary artery disease Family history of chronic obstructive pulmonary disease Mother Hypertension Mother Hypertension Father Family history of coronary artery disease Family history of chronic obstructive pulmonary disease Other Diabetes mellitus Family history of arthritis Family history of cardiovascular disease Family history of gout Social History Social History Smoking status: Never smoker Tobacco type: cigarettes Alcohol intake: never Substance use: never Substance use type: does not use Gender identity (if verbalized by the patient): Female Exam Const: General: no acute distress Orientation/consciousness: patient oriented x3 HENMT: Head: normal to inspection Eyes: Conjunctivae: conjunctivae normal Pupils: Equal, round and reactive pupils present Neck: Neck: normal visual inspection, no lymphadenopathy and no meningeal signs Chest: Chest palpation & inspection: normal inspection of the chest Resp: Effort & Inspection: normal respiratory effort Auscultation: clear to auscultation bilaterally Cardio: Rate: regular rate Rhythm: abnormal rhythm GI: GI Palp: Yes Soft to palpation Other: Has a protruding internal hemorrh
[2021-04-21 21:23] VITALS: BP 131/98; PULSE 96; RESP 20; TEMP 37.1; O2SAT 97
== END 2021-04-21 21:25 | disposition home or self-care (01) ==
PROVIDERS: Emergency Provider Emergency Medicine; PCP Internal Medicine
DX: K64.8 Other hemorrhoids (principal); E03.9 Hypothyroidism, unspecified; K21.9 Gastro-esophageal reflux disease without esophagitis; I10 Essential (primary) hypertension
CPT/HCPCS: 36415; 80053; 85025; 85610; 85730; 99282; 99283

== ENCOUNTER 2021-04-29 09:56 | Outpatient (CLI) | payer MEDICARE, BC, SELFPAY ==
[2021-04-29 10:23] VITALS: BP 142/88; PULSE 61; RESP 18; TEMP 35.7; O2SAT 95
[2021-04-29 10:24] VITALS: BMI 27.2
--- NOTE | 2021-04-29 13:31 | PC.NURSE ---
Patient here for IV Magnesium infusion r/t Mag level 1.7. No concerns voiced. IV Magnesium administered see MAR. Tolerated well. Safe exit of hospital.
== END 2021-04-29 09:57 | disposition home or self-care (01) ==
LOC: CHSTREATRM 09:59
PROVIDERS: PCP Internal Medicine; Visit Provider Internal Medicine
DX: E83.42 Hypomagnesemia (principal)
CPT/HCPCS: 96365; 96366; J3475; J7050

== ENCOUNTER 2021-05-17 14:23 | Outpatient (CLI) | payer MEDICARE, BC, SELFPAY ==
--- NOTE | ~2021-05-17 | US_ITS ---
EXAMINATION: US renal BI DATE: 05/17/2021 14:47 INDICATION: Hypomagnesemia TECHNIQUE: Multiple grayscale and Doppler ultrasound images of the kidneys were obtained. COMPARISON: None. FINDINGS: The right kidney measures 9.8 x 3.8 x 4.6 cm and contains an 8 mm cyst. The left kidney lenard sures 10.1 x 5.3 x 4.7 cm. The kidneys demonstrate increased parenchymal echogenicity. There is no hy dronephrosis. The bladder is normal. IMPRESSION: 1. Medical renal disease. Reviewed, dictated and finalized at location B. IMPRESSION: 1. Medical renal disease.
== END 2021-05-17 14:24 | disposition home or self-care (01) ==
PROVIDERS: PCP Internal Medicine; Visit Provider Internal Medicine Nephrology
DX: E83.42 Hypomagnesemia (principal); N18.31 Chronic kidney disease, stage 3a
CPT/HCPCS: 76775

== ENCOUNTER 2021-05-23 01:00 | Day surgery (SDC) | payer MEDICARE, BC, SELFPAY ==
[2021-05-12 13:08] VITALS: BMI 27.1
[2021-05-23 08:56] VITALS: BP 156/95; PULSE 90; RESP 20; TEMP 36.4; O2SAT 100; BMI 27.4
[2021-05-23] MEDS: LACTATED RINGERS 1,000 ML 150 ML IV CONT (09:04)
--- NOTE | 2021-05-23 09:18 | WPDANESEPPF ---
Anes - Initial Pre Proc Eval Procedure: Operation Date: 05/23/21 10:00 Proposed Procedures p Colonoscopy - Joao Brown MD Date/Time: 05/23/21 09:18 Surgeon: Joao Brown MD Pre Op Diagnosis: Rectal Bleeding Patient Data Age: 80 Gender: F Height: 1.73 m Weight: 81.8 kg Last Vital Signs Temp 36.4 C 05/23/21 08:56 Pulse 90 05/23/21 08:56 Resp 20 05/23/21 08:56 BP 156/95 H 05/23/21 08:56 Pulse Ox 100 05/23/21 08:56 Allergies Allergy/AdvReac Type Severity Reaction Status Date / Time ciprofloxacin Allergy Intermediate Confusion Verified 05/23/21 08:54 codeine Allergy Intermediate Unknown Verified 05/23/21 08:54 iohexol Allergy Intermediate Hives Verified 05/23/21 08:54 [From contrast - CT, X-RAY] Sulfa (Sulfonamide Allergy Intermediate Confusion Verified 05/23/21 08:54 Antibiotics) Home Medications Medication Instructions Recorded Confirmed Type alprazolam 0.5 mg PO HS 11/15/19 05/12/21 History meclizine 25 mg PO TID PRN #20 tablet 04/08/20 05/12/21 Rx levothyroxine 25 mcg capsule 25 mcg PO DAILY #30 cap 10/26/20 05/12/21 Rx dicyclomine 10 mg capsule 10 mg PO QID PRN #180 cap 12/27/20 05/12/21 Rx losartan 100 mg tablet 100 mg PO DAILY #90 tablet 01/24/21 05/12/21 Rx metoprolol tartrate 25 mg PO BID 02/24/21 05/12/21 History fenofibrate micronized 134 mg PO DAILY 04/11/21 05/12/21 History spironolactone 25 mg PO DAILY 04/11/21 05/12/21 History acetaminophen [Tylenol Arthritis] 1,300 mg PO Q12H 05/12/21 05/12/21 History aspirin [Adult Aspirin Regimen] 81 mg PO DAILY 05/12/21 05/12/21 History estradiol 0.05 mg TOPICAL WEEKLY 05/12/21 05/12/21 History magnesium glycinate 105 mg PO QID 05/12/21 05/12/21 History Patient hx anesthesia problems: none Family hx anesthesia problems: none Results Review: All pre-operative results and documents have been reviewed as part of the pre-operative evaluation. [facility] Past Medical History Medical History Adult hypothyroidism Aftercare following knee joint replacement surgery External hemorrhoids ABEL (generalized anxiety disorder) GERD (gastroesophageal reflux disease) HTN (hypertension) (02/28/18) Hypomagnesemia (01/17/18) Sleep apnea SVT (supraventricular tachycardia) Surgical History Surgical History History of appendectomy History of hernia repair History of lumpectomy of left breast Hx laparoscopic cholecystectomy Hx of coronary artery disease Hx of joint replacement Hx of small bowel obstruction Family History Family History Father Family history of chronic obstructive pulmonary disease Family history of coronary artery disease Father Family history of coronary artery disease Family history of chronic obstructive pulmonary disease Mother Hypertension Mother Hypertension Father Family history of coronary artery disease Family history of chronic obstructive pulmonary disease Other Diabetes mellitus Family history of arthritis Family history of cardiovascular disease Family history of gout Social History Social History Smoking status: Never smoker Tobacco type: cigarettes Alcohol intake: never Substance use: never Substance use type: does not use Living arrangements: with family Gender identity (if verbalized by the patient): Female Spiritual care concerns: No Anes - Eval Final PreProcedure Day of Procedure 05/23/21 09:18 Patient weight: overweight Heart: irregular rhythm Lungs: clear to auscultation Airway: Mallampati scale class II Neurological: alert and oriented Last oral intake: >/= 8 hours ASA classification: III Emergent: no Anesthetic plan: proceed Anesthesia type and monitoring: general GIVS and standard monitoring Results Review: All pr
--- NOTE | 2021-05-23 09:34 | PM.HPGS ---
History of Present Illness History of Present Illness Consent: Risks, benefits, and alternatives have been discussed and questions answered. Patient agrees to proceed with procedure. Chief complaint: Rectal Bleeding Narrative: Peyton Gomez is a 80 year old female with afib on xarelto (now on hold since she went to ER because of bleeding) and intermittent blood after wiping, last colonoscopy almost 10 years ago. Also remote history of small bowel surgery. Review of Systems Constitutional: Constitutional: Denies headache(s) and Denies weakness Eyes: Eyes: Denies blurry vision ENT: Reports Normal hearing present, Denies headache(s) and Denies neck pain Cardiovascular: Cardiovascular: Denies chest pain and Denies dyspnea Respiratory: Respiratory: Denies dyspnea Gastrointestinal: Gastrointestinal: Reports no additional gastrointestinal complaints Genitourinary: Genitourinary: Denies dysuria Musculoskeletal: Musculoskeletal: Denies neck pain Integumentary/Breasts: Skin/Breast: Denies dry skin Neurologic: Reports Normal hearing present, Denies headache(s) and Denies weakness Psychiatric: Psychiatric: Denies anxiety Endocrine: Endocrine: Denies change in body appearance Hematologic/Lymphatic: Hematologic/Lymphatic: Denies easy bleeding Allergic/Immunologic: Allergic/Immunologic: Denies urticaria PMFSH Past Medical History Medical History (Updated 05/23/21 @ 09:35 by Jaoo Brown MD) Adult hypothyroidism Aftercare following knee joint replacement surgery External hemorrhoids ABEL (generalized anxiety disorder) GERD (gastroesophageal reflux disease) HTN (hypertension) (02/28/18) Hypomagnesemia (01/17/18) Rectal bleeding Sleep apnea SVT (supraventricular tachycardia) Surgical History Surgical History History of appendectomy History of hernia repair History of lumpectomy of left breast Hx laparoscopic cholecystectomy Hx of coronary artery disease Hx of joint replacement Hx of small bowel obstruction Family History Family History Father Family history of chronic obstructive pulmonary disease Family history of coronary artery disease Father Family history of coronary artery disease Family history of chronic obstructive pulmonary disease Mother Hypertension Mother Hypertension Father Family history of coronary artery disease Family history of chronic obstructive pulmonary disease Other Diabetes mellitus Family history of arthritis Family history of cardiovascular disease Family history of gout Social History Social History Smoking status: Never smoker Tobacco type: cigarettes Alcohol intake: never Substance use: never Substance use type: does not use Living arrangements: with family Gender identity (if verbalized by the patient): Female Spiritual care concerns: No Meds Home Medications and Allergies Home Medications Medication Instructions Recorded Confirmed Type alprazolam 0.5 mg PO HS 11/15/19 05/12/21 History meclizine 25 mg PO TID PRN #20 tablet 04/08/20 05/12/21 Rx levothyroxine 25 mcg capsule 25 mcg PO DAILY #30 cap 10/26/20 05/12/21 Rx dicyclomine 10 mg capsule 10 mg PO QID PRN #180 cap 12/27/20 05/12/21 Rx losartan 100 mg tablet 100 mg PO DAILY #90 tablet 01/24/21 05/12/21 Rx metoprolol tartrate 25 mg PO BID 02/24/21 05/12/21 History fenofibrate micronized 134 mg PO DAILY 04/11/21 05/12/21 History spironolactone 25 mg PO DAILY 04/11/21 05/12/21 History acetaminophen [Tylenol Arthritis] 1,300 mg PO Q12H 05/12/21 05/12/21 History aspirin [Adult Aspirin Regimen] 81 mg PO DAILY 05/12/21 05/12/21 History estradiol 0.05 mg TOPICAL WEEKLY 05/12/21 05/12/21 History magnesium glycinate 105 mg PO QID 05/12/21 05/12/21 History Allergies Allergy/AdvReac Type Severity Reaction Status Date /
[2021-05-23 09:59] VITALS: BP 133/91; PULSE 98; RESP 14; O2SAT 100
[2021-05-23 10:09] VITALS: BP 150/101; PULSE 94; RESP 12; O2SAT 100
[2021-05-23 10:19] VITALS: BP 157/105; PULSE 101; RESP 13; O2SAT 100
[2021-05-23 10:32] VITALS: BP 150/101; PULSE 94; RESP 12; O2SAT 100
--- NOTE | 2021-05-23 10:41 | SUR.PHASEII ---
per low voltage electrician and circulater pt is and was in a flutter and was normal for pt and that md aragon is aware
== END 2021-05-23 10:40 | disposition home or self-care (01) ==
PROVIDERS: PCP Internal Medicine; Visit Provider Internal Medicine Gastroenterology
PROC: 0DJD8ZZ Inspection of Lower Intestinal Tract, Via Natural or Artificial Opening Endoscopic (ICD-10-PCS; CPT 45378; principal; 2021-05-23 10:00)
DX: K92.1 Melena (principal); K57.30 Diverticulosis of large intestine without perforation or abscess without bleeding; K64.8 Other hemorrhoids; K63.5 Polyp of colon; I48.91 Unspecified atrial fibrillation; Z79.01 Long term (current) use of anticoagulants; E03.9 Hypothyroidism, unspecified; F41.1 Generalized anxiety disorder; I10 Essential (primary) hypertension; E83.42 Hypomagnesemia; R06.81 Apnea, not elsewhere classified; I47.1 Supraventricular tachycardia; Z79.82 Long term (current) use of aspirin
CPT/HCPCS: 45385; 88305; J2704; J7120

== ENCOUNTER 2021-06-03 10:44 | Outpatient (RCR) | payer MEDICARE, SELFPAY ==
[2021-03-17 12:16] LABS: Magnesium 1.5 mg/dL (1.8-2.4)
[2021-03-29 13:46] LABS: Magnesium 1.4 mg/dL (1.8-2.4)
[2021-04-04 13:59] LABS: Magnesium 1.4 mg/dL (1.8-2.4)
[2021-04-19 10:12] LABS: Magnesium 1.5 mg/dL (1.8-2.4)
[2021-04-26 11:44] LABS: Magnesium 1.7 mg/dL (1.8-2.4)
[2021-05-02 11:11] LABS: Magnesium 1.7 mg/dL (1.8-2.4)
[2021-05-09 11:37] LABS: Magnesium 1.8 mg/dL (1.8-2.4)
[2021-05-19 14:15] LABS: Magnesium 1.8 mg/dL (1.8-2.4)
[2021-06-03 11:04] LABS: Magnesium 1.8 mg/dL (1.8-2.4)
== END 2021-06-15 23:59 | disposition home or self-care (01) ==
LOC: CHSLAB 10:44
PROVIDERS: PCP Internal Medicine; Visit Provider Internal Medicine
DX: E83.42 Hypomagnesemia (principal)
CPT/HCPCS: 36415; 83735

== ENCOUNTER 2021-06-07 17:15 | Emergency (ER) | payer MEDICARE, BC, SELFPAY ==
--- NOTE | ~2021-06-07 | XR_ITS ---
EXAMINATION: XR chest 1V portable 06/07/2021 18:03 INDICATION: Shortness of breath PROCEDURE: AP portable chest COMPARISON: Comparison to multiple prior studies sequentially, with oldest reviewed study dated . FINDINGS: The lungs are clear. The cardiomediastinal silhouette is within normal limits. There are no pleural effusions. There is no pneumothorax suspected. IMPRESSION: 1: NO ACUTE CARDIOPULMONARY DISEASE. Reviewed, dictated and finalized at location A. OLVER OPERATOR
--- NOTE | 2021-06-07 17:25 | ECG_ITS ---
Measurements Intervals [place] Rate: 125 P: [place]: 0 QRS: -2 QRSD: 75 T: -39 QT: 363 QTc: 524 Interpretive Statements ATRIAL FLUTTER/TACHYCARDIA WITH RAPID VENTRICULAR RESPONSE BASELINE ARTIFACT- I, II, III, AVR, AVL, AVF, V1-V6 ABNORMAL ECG Electronically Signed On 06-07-2021 19:26:53 SHEET METAL FOREMAN by Mo Betancur D.O.
[2021-06-07 17:30] VITALS: BP 176/155; PULSE 122; RESP 18; O2SAT 98
[2021-06-07 17:54] VITALS: PULSE 134
[2021-06-07] MEDS: METOPROLOL TARTRATE INJ 5 MG/5 ML VIAL IV PUSH (17:54)
[2021-06-07] MEDS: SODIUM CHLORIDE 0.9% IV 500 ML 999 ML IV CONT (17:58)
[2021-06-07 18:00] LABS: Basophils Absolute Auto 0.09 K/mm3 (0.00-0.10); Basophils Percent Auto 0.9 % (0.0-1.0); Eosinophils Absolute Auto 0.07 K/mm3 (0.02-0.50); Eosinophils Percent Auto 0.7 % (1.0-6.0); Hematocrit 48.7 % (35.0-42.0); Hemoglobin 16.6 g/dL (11.7-13.8); Immature Granulocyte Absolute 0.04 K/mm3 (0.00-0.00); Immature Granulocyte Percent A 0.4 % (0.0-0.0); Lymphocytes Absolute Auto 2.83 K/mm3 (1.10-4.50); Lymphocytes Percent Auto 26.7 % (18.0-42.0); Mean Corpuscular HGB Conc 34.1 g/dL (32.0-36.0); Mean Corpuscular Hemoglobin 34.2 pg (27.0-31.0); Mean Corpuscular Volume 100.4 fL (78.0-102.0); Mean Platelet Volume 9.6 fl (9.2-11.8); Monocytes Absolute Auto 0.75 K/mm3 (0.10-0.90); Monocytes Percent Auto 7.1 % (2.0-11.0); Neutrophils Absolute Auto 6.8 K/mm3 (1.7-7.2); Neutrophils Percent Auto 64.2 % (50.0-70.0); Platelet Count Result 254 K/mm3 (150-420); Red Blood Count 4.85 M/mm3 (4.20-5.40); Red Cell Distribution Width 12.7 % (11.6-14.4); White Blood Count 10.6 K/mm3 (4.8-10.8)
--- NOTE | 2021-06-07 18:13 | PC.NURSE ---
Pt reports feeling better than when she came in. Dr. Sanchez notified.
[2021-06-07 18:15] VITALS: BP 166/94; PULSE 107; RESP 18; O2SAT 100
[2021-06-07 18:19] LABS: Alanine Aminotransferase 16 U/L (14-59); Albumin Level 4.1 g/dL (3.4-5.0); Alkaline Phosphatase 40 U/L (46-116); Anion Gap 12 mmol/L (8-16); Aspartate Amino Transferase 19 U/L (15-37); Bilirubin,Total 0.9 mg/dL (0.00-1.00); Blood Urea Nitrogen 26 mg/dL (7-18); Calcium 10.4 mg/dL (8.5-10.1); Carbon Dioxide 25 mmol/L (21-32); Chloride 98 mmol/L (98-108); Estimated CRCL calculation 36 ml/min; Estimated Glomerular Filt Rate 45; Glucose 101 mg/dL (70-99); Osmolality Calculated 284 mOsm/kg (285-295); Potassium 4.1 mmol/L (3.5-5.1); Sodium 135 mmol/L (136-145); Total Protein 7.5 g/dL (6.4-8.2); Troponin I 11.5 ng/L (0.00-60.4)
--- NOTE | 2021-06-07 18:25 | PC.NURSE ---
Pt ambulated to restroom. No distress noted.
[2021-06-07] MEDS: SODIUM CHLORIDE 0.9% IV 500 ML (18:28)
[2021-06-07] MEDS: ASPIRIN 325 MG ENTERIC TABLET PO (18:33)
[2021-06-07 18:44] LABS: Add Urine Microscopic? YES; Appearance Urine Clear (Clear); Bilirubin Urine Negative (Negative); Blood Urine 1+ (Negative); Color Urine Light Yellow (Yellow); Glucose Urine UA Negative (Negative); Ketones Urine Negative (Negative); Leukocyte Esterase Ur Negative (Negative); Nitrate Urine Negative (Negative); Protein Urine Negative (Negative); Urobilinogen Urine 0.2 mg/dL (0.2-1.0)
[2021-06-07 18:48] LABS: Bacteria Urine Trace /hpf; RBC Urine 0-2 /hpf (0-2); Squamous Epithelial Cell Urine Rare /hpf (Few); WBC Urine 0-3 /hpf (0-3)
--- NOTE | 2021-06-07 18:49 | PC.NURSE ---
Pt c/o feeling like she did when she came in. Heart rate noted to be at 137 but did not stay there. Heart rate down to 113. Dr. Sanchez notified.
[2021-06-07] MEDS: dilTIAZem HCl INJ 25 MG/5 ML VIAL 20 MG IV PUSH (19:11)
[2021-06-07] MEDS: SODIUM CHLORIDE 0.9% IV 1,000 ML 150 ML IV CONT (19:16)
[2021-06-07 19:17] VITALS: BP 132/81; PULSE 80; RESP 18; O2SAT 100
--- NOTE | 2021-06-07 19:19 | PC.NURSE ---
Report given to AYDEE Moe
--- NOTE | 2021-06-07 19:36 | ECG_ITS ---
Measurements Intervals [place] Rate: 73 P: [place]: 0 QRS: 9 QRSD: 73 T: -4 QT: 390 QTc: 430 Interpretive Statements ATRIAL FLUTTER DELAYED PRECORDIAL R/S TRANSITION BASELINE ARTIFACT- I, II, III, AVR, AVL, AVF, V2, V6 ABNORMAL ECG Electronically Signed On 06-08-2021 6:47:05 COMPUTING SYSTEMS MECHANIC by Mo Betancur D.O.
--- NOTE | 2021-06-07 19:45 | ED.ARRPALP ---
HPI - Arrhythmia/Palpitations General Chief Complaint: Arrhythmia/Palpitations Stated Complaint: high blood pressure, afib, weakness Time Seen by Provider: 06/07/21 17:17 Source: patient, family and RN notes reviewed Mode of arrival: ambulatory Limitations: no limitations History of Present Illness complaint: rapid heart beat, heart racing , skipped beats , palpitations and irregular heart beat Onset (ago): hour(s) (1) Duration: constant Severity: moderate Context: occurred during exertion Arrhythmia history: atrial fibrillation and on anti-coagulants Associated symptoms: shortness of breath Related Data Home Medications Medication Instructions Recorded Confirmed alprazolam 0.5 mg PO HS 11/15/19 05/12/21 metoprolol tartrate 25 mg PO BID 02/24/21 05/12/21 fenofibrate micronized 134 mg PO DAILY 04/11/21 05/12/21 spironolactone 25 mg PO DAILY 04/11/21 05/12/21 acetaminophen [Tylenol Arthritis] 1,300 mg PO Q12H 05/12/21 05/12/21 aspirin [Adult Aspirin Regimen] 81 mg PO DAILY 05/12/21 05/12/21 estradiol 0.05 mg TOPICAL WEEKLY 05/12/21 05/12/21 magnesium glycinate 105 mg PO QID 05/12/21 05/12/21 Allergies Allergy/AdvReac Type Severity Reaction Status Date / Time ciprofloxacin Allergy Intermediate Confusion Verified 06/07/21 17:46 codeine Allergy Intermediate Unknown Verified 06/07/21 17:46 iohexol Allergy Intermediate Hives Verified 06/07/21 17:46 [From contrast - CT, X-RAY] Sulfa (Sulfonamide Allergy Intermediate Confusion Verified 06/07/21 17:46 Antibiotics) Review of Systems Review of Systems: All systems reviewed & are unremarkable except as noted in HPI and below Cardiovascular: Cardiovascular: Reports rapid heart rate PMFSH Past Medical History Medical History Adult hypothyroidism Aftercare following knee joint replacement surgery External hemorrhoids ABEL (generalized anxiety disorder) GERD (gastroesophageal reflux disease) HTN (hypertension) (02/28/18) Hypomagnesemia (01/17/18) Rectal bleeding Sleep apnea SVT (supraventricular tachycardia) Surgical History Surgical History History of appendectomy History of hernia repair History of lumpectomy of left breast Hx laparoscopic cholecystectomy Hx of coronary artery disease Hx of joint replacement Hx of small bowel obstruction Family History Family History Father Family history of chronic obstructive pulmonary disease Family history of coronary artery disease Father Family history of coronary artery disease Family history of chronic obstructive pulmonary disease Mother Hypertension Mother Hypertension Father Family history of coronary artery disease Family history of chronic obstructive pulmonary disease Other Diabetes mellitus Family history of arthritis Family history of cardiovascular disease Family history of gout Social History Social History Smoking status: Never smoker Tobacco type: cigarettes Alcohol intake: never Substance use: never Substance use type: does not use Gender identity (if verbalized by the patient): Female Spiritual care concerns: No Exam Const: General: no acute distress and alert Nutritional Appearance: well nourished Orientation/consciousness: patient oriented x3 Limitations: no limitations HENMT: Head: normal to inspection Ears: external ears normal and TM's normal bilaterally General nose exam: Normal external nose present and Normal nares present Mouth: Yes lip normal and Yes moist mucous membranes Teeth and gingiva: dentition normal Eyes: Conjunctivae: conjunctivae normal Pupils: Equal, round and reactive pupils present EOM: EOMs intact bilaterally Neck: Neck: normal visual inspection and no lymphadenopathy Chest: Chest palpation & inspection:
[2021-06-07 20:55] VITALS: BP 119/70; PULSE 105
[2021-06-07 21:29] VITALS: BP 119/70; PULSE 105; RESP 18; O2SAT 100
== END 2021-06-07 21:09 | disposition home or self-care (01) ==
PROVIDERS: Emergency Provider Emergency Medicine; PCP Internal Medicine
DX: E86.0 Dehydration (principal); I48.20 Chronic atrial fibrillation, unspecified; E03.9 Hypothyroidism, unspecified; K21.9 Gastro-esophageal reflux disease without esophagitis; I10 Essential (primary) hypertension
CPT/HCPCS: 36415; 71045; 80053; 81001; 84484; 85025; 93005; 96361; 96374; 96375; 99283; 99284; A9270; J7030; J7040

== ENCOUNTER 2021-06-24 01:54 | Day surgery (SDC) | payer MEDICARE, BC, SELFPAY ==
--- NOTE | 2021-06-22 10:22 | PC.NURSE ---
PT INTERVIEWED NO CHANGES SINCE PREVIOUS INTERVIEW FOR COLONOSCOPY 05/23/2021, DIGOXIN ADDED TO MED. LIST FOR AFIB.
[2021-06-24 07:38] VITALS: BP 156/98; PULSE 75; RESP 16; TEMP 36.4; O2SAT 99
[2021-06-24 07:51] VITALS: BP 159/86; PULSE 85; RESP 16; O2SAT 99
[2021-06-24 07:53] VITALS: BP 143/85; PULSE 93; RESP 16; O2SAT 99
--- NOTE | 2021-06-24 07:53 | PM.HPGS ---
History of Present Illness History of Present Illness Consent: Risks, benefits, and alternatives have been discussed and questions answered. Patient agrees to proceed with procedure. Chief complaint: hemorrhoids Narrative: Peyton Gomez is a 80 year old female here with intermittent rectal bleeding but improved since xarelto briefly on hold. Recent colonoscopy showed grade II hemorrhoids and here for [facility] treatment Review of Systems Constitutional: Constitutional: Denies headache(s) and Denies weakness Eyes: Eyes: Denies blurry vision ENT: Reports Normal hearing present, Denies headache(s) and Denies neck pain Cardiovascular: Cardiovascular: Denies chest pain and Denies dyspnea Respiratory: Respiratory: Denies dyspnea Gastrointestinal: Gastrointestinal: Reports no additional gastrointestinal complaints Genitourinary: Genitourinary: Denies dysuria Musculoskeletal: Musculoskeletal: Denies neck pain Integumentary/Breasts: Skin/Breast: Denies dry skin Neurologic: Reports Normal hearing present, Denies headache(s) and Denies weakness Psychiatric: Psychiatric: Denies anxiety Endocrine: Endocrine: Denies change in body appearance Hematologic/Lymphatic: Hematologic/Lymphatic: Denies easy bleeding Allergic/Immunologic: Allergic/Immunologic: Denies urticaria PMFSH Past Medical History Medical History Adult hypothyroidism Aftercare following knee joint replacement surgery External hemorrhoids ABEL (generalized anxiety disorder) GERD (gastroesophageal reflux disease) HTN (hypertension) (02/28/18) Hypomagnesemia (01/17/18) Rectal bleeding Sleep apnea SVT (supraventricular tachycardia) Surgical History Surgical History History of appendectomy History of hernia repair History of lumpectomy of left breast Hx laparoscopic cholecystectomy Hx of coronary artery disease Hx of joint replacement Hx of small bowel obstruction Family History Family History Father Family history of chronic obstructive pulmonary disease Family history of coronary artery disease Father Family history of coronary artery disease Family history of chronic obstructive pulmonary disease Mother Hypertension Mother Hypertension Father Family history of coronary artery disease Family history of chronic obstructive pulmonary disease Other Diabetes mellitus Family history of arthritis Family history of cardiovascular disease Family history of gout Social History Social History Smoking status: Never smoker Tobacco type: cigarettes Alcohol intake: never Substance use: never Substance use type: does not use Living arrangements: with family Gender identity (if verbalized by the patient): Female Spiritual care concerns: No Meds Home Medications and Allergies Home Medications Medication Instructions Recorded Confirmed Type alprazolam 0.5 mg PO HS 11/15/19 06/22/21 History meclizine 25 mg PO TID PRN #20 tablet 04/08/20 06/22/21 Rx levothyroxine 25 mcg capsule 25 mcg PO DAILY #30 cap 10/26/20 06/22/21 Rx dicyclomine 10 mg capsule 10 mg PO QID PRN #180 cap 12/27/20 06/22/21 Rx losartan 100 mg tablet 100 mg PO DAILY #90 tablet 01/24/21 06/22/21 Rx metoprolol tartrate 25 mg PO BID 02/24/21 06/22/21 History fenofibrate micronized 134 mg PO DAILY 04/11/21 06/22/21 History spironolactone 25 mg PO DAILY 04/11/21 06/22/21 History acetaminophen [Tylenol Arthritis] 650 mg PO BID 05/12/21 06/22/21 History aspirin [Adult Aspirin Regimen] 81 mg PO DAILY 05/12/21 06/22/21 History estradiol 0.05 mg TOPICAL WEEKLY 05/12/21 06/22/21 History magnesium glycinate 105 mg PO QID 05/12/21 06/22/21 History digoxin 125 mcg PO Q48H 06/22/21 06/22/21 History Allergies Allergy/AdvReac Type Severity Reaction Status Edwin
--- NOTE | 2021-06-24 07:55 | W.PM.PROC2 ---
Procedure Note - Detailed Date of Procedure 06/24/21 Pre-op Diagnosis hemorrhoids Post-op Diagnosis same Procedure Performed IRC (infrared coagulation) Surgeon Joao Brown MD Findings rectal exam revealed small hemorrhoids, no fissure. Then I introduced anoscopy and found grade II internal hemorrhoids at 12-3 o'clock position. Then use IRC probe to treat hemorrhoids 1.3 seconds each time x5, no complications Description of Procedure IRC, as above Complications No immediate complications Condition stable
== END 2021-06-24 08:05 | disposition home or self-care (01) ==
PROVIDERS: PCP Internal Medicine; Visit Provider Internal Medicine Gastroenterology
PROC: (CPT 46930; principal; 2021-06-24 08:00)
DX: K64.1 Second degree hemorrhoids (principal); K64.9 Unspecified hemorrhoids; K62.5 Hemorrhage of anus and rectum; E03.9 Hypothyroidism, unspecified; F41.1 Generalized anxiety disorder; K21.9 Gastro-esophageal reflux disease without esophagitis; I10 Essential (primary) hypertension; E83.42 Hypomagnesemia; G47.30 Sleep apnea, unspecified; I47.1 Supraventricular tachycardia; F17.210 Nicotine dependence, cigarettes, uncomplicated; Z79.82 Long term (current) use of aspirin
CPT/HCPCS: 46930; J7120

== ENCOUNTER 2021-06-25 10:39 | Outpatient (CLI) | payer MEDICARE, SELFPAY ==
[2021-06-25 10:59] LABS: Magnesium 1.7 mg/dL (1.8-2.4)
[2021-06-29 14:37] LABS: Digoxin 0.3 ng/mL (0.9-2.0)
== END 2021-06-25 10:40 | disposition home or self-care (01) ==
PROVIDERS: PCP Internal Medicine; Visit Provider Internal Medicine
DX: E83.42 Hypomagnesemia (principal); I49.9 Cardiac arrhythmia, unspecified
CPT/HCPCS: 36415; 80162; 83735

== ENCOUNTER 2021-06-29 12:20 | Outpatient (CLI) | payer MEDICARE, BC, SELFPAY ==
[2021-06-29 12:30] VITALS: BP 158/83; PULSE 78; RESP 14; TEMP 36.3; O2SAT 98
[2021-06-29 12:41] VITALS: BMI 27.2
--- NOTE | 2021-06-29 15:30 | PC.NURSE ---
Patient here for IV Magnesium infusion r/t chronic hypomagnesium. Level 1.7. No concerns voiced. P IV Magnesium administered. SEE MAR. Tolerated well. Safe exit of hospital.
== END 2021-06-29 12:21 | disposition home or self-care (01) ==
PROVIDERS: PCP Internal Medicine; Visit Provider Internal Medicine
DX: E83.42 Hypomagnesemia (principal)
CPT/HCPCS: 96365; 96366; 96367; J3475; J7050

== ENCOUNTER 2021-07-15 13:12 | Outpatient (CLI) | payer MEDICARE, SELFPAY ==
[2021-07-15 13:51] LABS: Influenza Control Valid (Valid)
[2021-07-15 13:58] LABS: SARS-CoV-2 Ag Positive (Negative)
== END 2021-07-15 13:13 | disposition home or self-care (01) ==
LOC: CHSLAB 13:13
PROVIDERS: PCP Internal Medicine; Visit Provider Internal Medicine
DX: U07.1 COVID-19 (principal); J06.9 Acute upper respiratory infection, unspecified
CPT/HCPCS: 87426; 87804; C9803

== ENCOUNTER 2021-08-04 10:14 | Outpatient (CLI) | payer MEDICARE, SELFPAY ==
[2021-08-04 10:49] LABS: Basophils Absolute Auto 0.09 K/mm3 (0.00-0.10); Basophils Percent Auto 1.3 % (0.0-1.0); Eosinophils Absolute Auto 0.15 K/mm3 (0.02-0.50); Eosinophils Percent Auto 2.2 % (1.0-6.0); Hematocrit 47.9 % (35.0-42.0); Immature Granulocyte Absolute 0.01 K/mm3 (0.00-0.00); Immature Granulocyte Percent A 0.1 % (0.0-0.0); Lymphocytes Absolute Auto 1.61 K/mm3 (1.10-4.50); Lymphocytes Percent Auto 24.1 % (18.0-42.0); Mean Corpuscular HGB Conc 33.4 g/dL (32.0-36.0); Mean Corpuscular Volume 101.9 fL (78.0-102.0); Mean Platelet Volume 9.9 fl (9.2-11.8); Monocytes Absolute Auto 0.71 K/mm3 (0.10-0.90); Monocytes Percent Auto 10.6 % (2.0-11.0); Neutrophils Absolute Auto 4.1 K/mm3 (1.7-7.2); Neutrophils Percent Auto 61.7 % (50.0-70.0); Platelet Count Result 264 K/mm3 (150-420); White Blood Count 6.7 K/mm3 (4.8-10.8)
[2021-08-04 11:07] LABS: Albumin Level 3.9 g/dL (3.4-5.0); Anion Gap 7 mmol/L (8-16); Blood Urea Nitrogen 24 mg/dL (7-18); Calcium 10.1 mg/dL (8.5-10.1); Carbon Dioxide 31 mmol/L (21-32); Chloride 99 mmol/L (98-108); Estimated Glomerular Filt Rate 47; Glucose 76 mg/dL (70-99); Magnesium 1.8 mg/dL (1.8-2.4); Osmolality Calculated 287 mOsm/kg (285-295); Phosphorus 3.8 mg/dL (2.6-4.7); Potassium 4.7 mmol/L (3.5-5.1); Sodium 137 mmol/L (136-145)
[2021-08-04 12:02] LABS: Erythrocyte Sedimentation Rate 3 mm/hr (0-20)
[2021-08-04 12:18] LABS: Creatinine Urine 148.43 mg/dL (40-278); Total Protein Urine Random 24.4 mg/dL (0.0-11.9); Ur Ttl Prot Creatinine Ratio 0.16 mg/mg (0-0.20)
[2021-08-04 12:30] LABS: Add Urine Microscopic? NO; Appearance Urine Clear (Clear); Bilirubin Urine Negative (Negative); Blood Urine Negative (Negative); Color Urine Yellow (Yellow); Glucose Urine UA Negative (Negative); Ketones Urine Negative (Negative); Leukocyte Esterase Ur Negative LEU/UL (Negative); Nitrate Urine Negative (Negative); Protein Urine Negative (Negative); Specific Grav Ur 1.015 (1.010-1.020)
[2021-08-07 07:55] LABS: Cortisol Random 15.9 mcg/dL (***)
[2021-08-07 17:18] LABS: Lambda Light Chain 13.1 mg/L (5.7-26.3)
[2021-08-08 11:58] LABS: Parathyroid Intact 27 pg/mL (14-64)
[2021-08-08 13:01] LABS: Complement C3 126 mg/dL (83-193)
[2021-08-10 20:03] LABS: Complement Total CH50 >60 U/mL (31-60)
[2021-08-12 04:58] LABS: Creat 24 Hr 0.81 g/24 h (0.50-2.15); Measured Kappa Chains <1.00 mg/dL (<2.00); Measured Lambda Chains <1.00 mg/dL (<2.00); Pro/Creat Ratio 122 mg/g creat (<=114)
[2021-08-25 17:41] LABS: Protein,total, 24 Hr Ur 0.122 mg/24h
== END 2021-08-04 10:15 | disposition home or self-care (01) ==
LOC: CHSLAB 10:18
PROVIDERS: PCP Internal Medicine; Visit Provider Internal Medicine Nephrology
DX: N18.31 Chronic kidney disease, stage 3a (principal); E83.42 Hypomagnesemia
CPT/HCPCS: 36415; 80069; 81003; 82533; 82570; 83735; 83883; 83970; 84156; 85025; 85652; 86038; 86160; 86162; 86334; 86335

== ENCOUNTER 2021-08-26 08:03 | Outpatient (CLI) | payer MEDICARE, BC, SELFPAY ==
--- NOTE | ~2021-08-26 | MM_ITS ---
EXAMINATION: MM screening [facility] BI w joel HISTORY: Screening mammogram TECHNIQUE: Craniocaudal and mediolateral oblique 3-D tomosynthesis images were obtained and synthetic 2-D images were generated. CAD analysis was submitted and interpreted. COMPARISON: 08/02/2020, 07/24/2019, 07/18/2019 BREAST PARENCHYMAL COMPOSITION: There are scattered areas of fibroglandular density. FINDINGS: There is no evidence of suspicious mass, calcification, or architectural distortion to sugg est malignancy in either breast. There has been no suspicious interval change. IMPRESSION: 1. No mammographic evidence of malignancy. 2. Recommend routine screening mammography in one year. BI-RADS Category 1: Negative Reviewed, dictated and finalized at location A. MOTIVE MACHINIST
[2021-08-26 08:31] LABS: Magnesium 1.8 mg/dL (1.8-2.4)
== END 2021-08-26 08:04 | disposition home or self-care (01) ==
LOC: CHSIMG 08:08
PROVIDERS: PCP Internal Medicine; Visit Provider Internal Medicine
DX: E83.42 Hypomagnesemia (principal); Z12.31 Encounter for screening mammogram for malignant neoplasm of breast
CPT/HCPCS: 36415; 77063; 77067; 83735

== ENCOUNTER 2021-09-02 01:04 | Day surgery (SDC) | payer MEDICARE, BC, SELFPAY ==
[2021-08-31 14:54] VITALS: BMI 27.1
[2021-09-02 13:07] VITALS: BP 170/104; PULSE 80; RESP 18; TEMP 36.2; O2SAT 94
--- NOTE | 2021-09-02 13:31 | PM.HPGS ---
History of Present Illness History of Present Illness Consent: Risks, benefits, and alternatives have been discussed and questions answered. Patient agrees to proceed with procedure. Chief complaint: hemorrhoids Narrative: Peyton Gomez is a 81 year old female with IH still with bleeding, last IRC helped some Review of Systems Constitutional: Constitutional: Denies headache(s) and Denies weakness Eyes: Eyes: Denies blurry vision ENT: Reports Normal hearing present, Denies headache(s) and Denies neck pain Cardiovascular: Cardiovascular: Denies chest pain and Denies dyspnea Respiratory: Respiratory: Denies dyspnea Gastrointestinal: Gastrointestinal: Reports no additional gastrointestinal complaints Genitourinary: Genitourinary: Denies dysuria Musculoskeletal: Musculoskeletal: Denies neck pain Integumentary/Breasts: Skin/Breast: Denies dry skin Neurologic: Reports Normal hearing present, Denies headache(s) and Denies weakness Psychiatric: Psychiatric: Denies anxiety Endocrine: Endocrine: Denies change in body appearance Hematologic/Lymphatic: Hematologic/Lymphatic: Denies easy bleeding Allergic/Immunologic: Allergic/Immunologic: Denies urticaria PMFSH Past Medical History Medical History Adult hypothyroidism Aftercare following knee joint replacement surgery External hemorrhoids ABEL (generalized anxiety disorder) GERD (gastroesophageal reflux disease) HTN (hypertension) (02/28/18) Hypomagnesemia (01/17/18) Rectal bleeding Sleep apnea SVT (supraventricular tachycardia) Surgical History Surgical History History of appendectomy History of hernia repair History of lumpectomy of left breast Hx laparoscopic cholecystectomy Hx of coronary artery disease Hx of joint replacement Hx of small bowel obstruction Family History Family History Father Family history of chronic obstructive pulmonary disease Family history of coronary artery disease Father Family history of coronary artery disease Family history of chronic obstructive pulmonary disease Mother Hypertension Mother Hypertension Father Family history of coronary artery disease Family history of chronic obstructive pulmonary disease Other Diabetes mellitus Family history of arthritis Family history of cardiovascular disease Family history of gout Social History Social History Smoking status: Never smoker Tobacco type: cigarettes Alcohol intake: never Substance use: never Substance use type: does not use Living arrangements: alone Gender identity (if verbalized by the patient): Female Spiritual care concerns: No Meds Home Medications and Allergies Home Medications Medication Instructions Recorded Confirmed Type alprazolam 0.5 mg PO HS 11/15/19 08/31/21 History meclizine 25 mg PO TID PRN #20 tablet 04/08/20 08/31/21 Rx levothyroxine 25 mcg capsule 25 mcg PO DAILY #30 cap 10/26/20 08/31/21 Rx dicyclomine 10 mg capsule 10 mg PO QID PRN #180 cap 12/27/20 08/31/21 Rx losartan 100 mg tablet 100 mg PO DAILY #90 tablet 01/24/21 08/31/21 Rx metoprolol tartrate 25 mg PO BID 02/24/21 08/31/21 History fenofibrate micronized 134 mg PO DAILY 04/11/21 08/31/21 History spironolactone 25 mg PO DAILY 04/11/21 08/31/21 History acetaminophen [Tylenol Arthritis] 650 mg PO BID 05/12/21 08/31/21 History aspirin [Adult Aspirin Regimen] 81 mg PO DAILY 05/12/21 08/31/21 History estradiol 0.05 mg TOPICAL WEEKLY 05/12/21 08/31/21 History magnesium glycinate 105 mg PO QID PRN 05/12/21 08/31/21 History digoxin 125 mcg PO DAILY 06/22/21 09/02/21 History Allergies Allergy/AdvReac Type Severity Reaction Status Date / Time ciprofloxacin Allergy Intermediate Confusion Verified 09/02/21 13:05 codeine Allergy Intermediate
--- NOTE | 2021-09-02 13:32 | W.PM.PROC2 ---
Procedure Note - Detailed Date of Procedure 09/02/21 Pre-op Diagnosis hemorrhoids Post-op Diagnosis same Procedure Performed IRC (infrared coagulation of hemorrhoids) Surgeon Joao Brown MD Anesthesia none Description of Procedure noted grade III internal hemorrhoids at 12-3 o'clock position, no fissure. Then used anoscope and introduced IRC probe, treated x5 at 1.5 seconds each time. No complications. Patient to call again if symptomatic and we can always offer another treatment as needed. Consider surgery if ongoing bleeding. Condition stable
== END 2021-09-02 13:24 | disposition home or self-care (01) ==
PROVIDERS: PCP Internal Medicine; Visit Provider Internal Medicine Gastroenterology
PROC: (CPT 46930; principal; 2021-09-02 13:30)
DX: K64.2 Third degree hemorrhoids (principal); K62.5 Hemorrhage of anus and rectum; F41.1 Generalized anxiety disorder; K21.9 Gastro-esophageal reflux disease without esophagitis; I10 Essential (primary) hypertension; E83.42 Hypomagnesemia; G47.30 Sleep apnea, unspecified; I47.1 Supraventricular tachycardia; E03.9 Hypothyroidism, unspecified; Z79.82 Long term (current) use of aspirin
CPT/HCPCS: 46930

== ENCOUNTER 2021-09-04 20:20 | Emergency (ER) | payer MEDICARE, BC, SELFPAY ==
--- NOTE | ~2021-09-04 | XR_ITS ---
EXAMINATION: XR chest 1V portable EXAM DATE: 09/04/2021 21:50 INDICATION: Heart palpitations. TECHNIQUE: Frontal and lateral projections of the chest obtained and reviewed. There is no prior ramos dy for comparison. FINDINGS: The lungs are clear. There are no pleural effusions. The cardiomediastinal silhouette is within nor mal limits. There is no pneumothorax suspected. The bones and soft tissues are unremarkable. IMPRESSION: No acute cardiopulmonary findings. Reviewed, dictated and finalized at location A. TIC DIE MAKER APPRENTICE
[2021-09-04 20:36] VITALS: BP 126/106; PULSE 100; RESP 18; TEMP 36.2; O2SAT 100
--- NOTE | 2021-09-04 20:37 | ED.GENADULT ---
HPI - General Adult General Chief complaint: Unspecified Stated complaint: High BP, thinks afib Time Seen by Provider: 09/04/21 20:38 Source: patient Mode of arrival: ambulatory History of Present Illness HPI narrative: 81-year-old female with a history of hypertension, hypothyroidism, generalized anxiety disorder, diverticulosis, coronary artery disease status post RCA and LAD stent in 2007, SVT, atrial fibrillation not on anticoagulation secondary to hemorrhoidal bleeding, status post radioablation of the hemorrhoids, Hypo magnesemia possibly secondary to her small intestinal resection in the past, presents to the ER with -- high blood pressure. The patient has had blood pressures as high as 150/100 -- not feeling well. No chest pain or shortness of breath. -- Anxiety Onset (ago): day(s) Related Data Home Medications Medication Instructions Recorded Confirmed alprazolam 0.5 mg PO HS 11/15/19 09/04/21 metoprolol tartrate 25 mg PO BID 02/24/21 09/04/21 fenofibrate micronized 134 mg PO DAILY 04/11/21 09/04/21 spironolactone 25 mg PO DAILY 04/11/21 09/04/21 acetaminophen [Tylenol Arthritis] 650 mg PO BID 05/12/21 09/04/21 aspirin [Adult Aspirin Regimen] 81 mg PO DAILY 05/12/21 09/04/21 estradiol 0.05 mg TOPICAL WEEKLY 05/12/21 09/04/21 magnesium glycinate 105 mg PO QID PRN 05/12/21 09/04/21 digoxin 125 mcg PO DAILY 06/22/21 09/04/21 Allergies Allergy/AdvReac Type Severity Reaction Status Date / Time ciprofloxacin Allergy Intermediate Confusion Verified 09/04/21 20:40 codeine Allergy Intermediate Unknown Verified 09/04/21 20:40 iohexol Allergy Intermediate Hives Verified 09/04/21 20:40 [From contrast - CT, X-RAY] Sulfa (Sulfonamide Allergy Intermediate Confusion Verified 09/04/21 20:40 Antibiotics) Review of Systems Review of Systems: All systems reviewed & are unremarkable except as noted in HPI and below Constitutional: Constitutional: Reports as per HPI, Reports no additional constitutional complaints and Reports weakness Eyes: Eyes: Reports as per HPI and Reports no additional eye complaints ENT: Reports system reviewed and no additional complaints, except as documented Cardiovascular: Cardiovascular: Reports as per HPI and Reports no additional cardiovascular complaints Respiratory: Respiratory: Reports as per HPI and Reports no additional respiratory complaints Gastrointestinal: Gastrointestinal: Reports as per HPI and Reports no additional gastrointestinal complaints Genitourinary: Genitourinary: Reports no additional female genitourinary complaints and Reports as per HPI Musculoskeletal: Musculoskeletal: Reports no additional musculoskeletal complaints Integumentary/Breasts: Skin/Breast: Reports system reviewed and no additional complaints, except as docu Neurologic: Reports system reviewed and no additional complaints, except as documented Psychiatric: Psychiatric: Reports no additional psychiatric complaints Endocrine: Endocrine: Reports no additional endocrine complaints Hematologic/Lymphatic: Hematologic/Lymphatic: Reports no additional hematologic/lymphatic complaints Allergic/Immunologic: Allergic/Immunologic: Reports no additional allergic/immunologic complaints [facility] Past Medical History Medical History Adult hypothyroidism Aftercare following knee joint replacement surgery Atrial fibrillation External hemorrhoids ABEL (generalized anxiety disorder) GERD (gastroesophageal reflux disease) HTN (hypertension) (02/28/18) Hypomagnesemia (01/17/18) Rectal bleeding Sleep apnea SVT (supraventricular tachycardia) Surgical History Surgical History History of appendectomy History of hernia repair History of lumpectomy of left breast Hx laparoscopic cholecystectomy Hx of coronary artery disease Hx of joint replacement Hx of small bowel obstruction Family History Family H
--- NOTE | 2021-09-04 21:04 | ECG_ITS ---
Measurements Intervals [place] Rate: 79 P: [place]: 0 QRS: -6 QRSD: 70 T: -28 QT: 322 QTc: 370 Interpretive Statements ATRIAL FIBRILLATION LOW QRS VOLTAGE IN PRECORDIAL LEADS ST-T WAVE ABNORMALITY IN ANTEROLAT/INF LEADS- CONSIDER ISCHEMIA BASELINE ARTIFACT- I, II, III, AVR, AVL, AVF, V1-V6 ABNORMAL ECG Electronically Signed On 09-05-2021 8:03:05 LEAD GENERATION SPECIALIST by Mo Betancur D.O.
[2021-09-04 21:23] LABS: Basophils Absolute Auto 0.08 K/mm3 (0.00-0.10); Eosinophils Absolute Auto 0.17 K/mm3 (0.02-0.50); Eosinophils Percent Auto 2.1 % (1.0-6.0); Hematocrit 48.1 % (35.0-42.0); Hemoglobin 16.2 g/dL (11.7-13.8); Immature Granulocyte Absolute 0.03 K/mm3 (0.00-0.00); Immature Granulocyte Percent A 0.4 % (0.0-0.0); Lymphocytes Absolute Auto 2.12 K/mm3 (1.10-4.50); Lymphocytes Percent Auto 26.1 % (18.0-42.0); Mean Corpuscular HGB Conc 33.7 g/dL (32.0-36.0); Mean Corpuscular Volume 100.8 fL (78.0-102.0); Mean Platelet Volume 9.7 fl (9.2-11.8); Monocytes Percent Auto 8.6 % (2.0-11.0); Neutrophils Percent Auto 61.8 % (50.0-70.0); Platelet Count Result 260 K/mm3 (150-420); Red Blood Count 4.77 M/mm3 (4.20-5.40); Red Cell Distribution Width 13.2 % (11.6-14.4); White Blood Count 8.1 K/mm3 (4.8-10.8)
[2021-09-04 21:38] LABS: INR 1.1; Prothrombin Time 11.2 Seconds (9.50-12.10)
[2021-09-04 21:43] LABS: SARS-CoV-2 Ag Negative (Negative)
[2021-09-04 21:53] LABS: Alanine Aminotransferase 18 U/L (14-59); Albumin Level 3.8 g/dL (3.4-5.0); Alkaline Phosphatase 44 U/L (46-116); Anion Gap 8 mmol/L (8-16); Aspartate Amino Transferase 15 U/L (15-37); Bilirubin,Total 0.7 mg/dL (0.00-1.00); Blood Urea Nitrogen 23 mg/dL (7-18); Calcium 10.2 mg/dL (8.5-10.1); Carbon Dioxide 29 mmol/L (21-32); Chloride 100 mmol/L (98-108); Estimated CRCL calculation 47 ml/min; Estimated Glomerular Filt Rate 53; Glucose 124 mg/dL (70-99); NT Pro B Type Natriuretic Pept 1460 pg/mL (0-450); Osmolality Calculated 288 mOsm/kg (285-295); Potassium 4.1 mmol/L (3.5-5.1); Sodium 137 mmol/L (136-145); Total Protein 7.2 g/dL (6.4-8.2)
[2021-09-04 21:58] LABS: Magnesium 1.7 mg/dL (1.8-2.4)
[2021-09-04 21:59] LABS: Thyroid Stimulating Hormone 2.31 uIU/mL (0.36-3.74); Troponin I 15.3 ng/L (0.00-60.4)
[2021-09-04 22:16] LABS: Digoxin 0.6 ng/mL (0.9-2.0)
[2021-09-04] MEDS: MAGNESIUM SULF 2 GM/WATER 50ML 2 GM/50 ML BAG IVPB (22:46)
[2021-09-05 00:09] VITALS: PULSE 88; RESP 18; TEMP 36.6; O2SAT 99
== END 2021-09-05 00:11 | disposition home or self-care (01) ==
PROVIDERS: Emergency Provider Internal Medicine Critical Care Medicine; PCP Internal Medicine
DX: E83.42 Hypomagnesemia (principal); I48.91 Unspecified atrial fibrillation; Z20.822 Contact with and (suspected) exposure to COVID-19; E03.9 Hypothyroidism, unspecified; K21.9 Gastro-esophageal reflux disease without esophagitis; I10 Essential (primary) hypertension
CPT/HCPCS: 36415; 71045; 80053; 80162; 83735; 83880; 84443; 84484; 85025; 85610; 87426; 93005; 96365; 96366; 99284; C9803; J3475

== ENCOUNTER 2021-09-22 14:02 | Outpatient (CLI) | payer MEDICARE, SELFPAY ==
[2021-09-22 14:25] LABS: Albumin Level 3.8 g/dL (3.4-5.0); Anion Gap 9 mmol/L (8-16); Blood Urea Nitrogen 24 mg/dL (7-18); Carbon Dioxide 30 mmol/L (21-32); Chloride 99 mmol/L (98-108); Estimated Glomerular Filt Rate 46; Glucose 115 mg/dL (70-99); Osmolality Calculated 291 mOsm/kg (285-295); Phosphorus 4.7 mg/dL (2.6-4.7); Potassium 4.2 mmol/L (3.5-5.1); Sodium 138 mmol/L (136-145)
== END 2021-09-22 14:03 | disposition home or self-care (01) ==
LOC: CHSLAB 14:05
PROVIDERS: PCP Internal Medicine; Visit Provider Internal Medicine Nephrology
DX: N18.31 Chronic kidney disease, stage 3a (principal); E83.42 Hypomagnesemia
CPT/HCPCS: 36415; 80069; 83735

== ENCOUNTER 2021-09-23 12:05 | Outpatient (CLI) | payer MEDICARE, BC, SELFPAY ==
[2021-09-23 12:41] VITALS: BMI 27.2
[2021-09-23 12:53] VITALS: BMI 27.2
== END 2021-09-23 12:06 | disposition home or self-care (01) ==
LOC: CHSTREATRM 12:07
PROVIDERS: PCP Internal Medicine; Visit Provider Internal Medicine
DX: E83.42 Hypomagnesemia (principal)
CPT/HCPCS: 36415; 82570; 83735; 96365; 96366; J3475; J7050

== ENCOUNTER 2021-09-28 10:12 | Outpatient (CLI) | payer MEDICARE, BC, SELFPAY ==
[2021-09-28 10:27] VITALS: BMI 27.2
[2021-09-28 10:31] VITALS: BP 132/74; PULSE 80; RESP 14; TEMP 36.7; O2SAT 98
--- NOTE | 2021-09-28 13:35 | PC.NURSE ---
Patient here for IV Magnesium r/t Mag level from yesterday labs was 1.2. No concerns voiced. IV Magnesium administered SEE SEP. Tolerated well. Safe exit of hospital.
== END 2021-09-28 10:13 | disposition home or self-care (01) ==
PROVIDERS: PCP Internal Medicine; Visit Provider Internal Medicine
DX: E83.42 Hypomagnesemia (principal)
CPT/HCPCS: 96365; 96366; J3475; J7050

== ENCOUNTER 2021-10-04 10:08 | Outpatient (CLI) | payer MEDICARE, BC, SELFPAY ==
[2021-10-04 10:15] VITALS: BMI 25.9
[2021-10-04 10:26] VITALS: BP 146/91; PULSE 70; RESP 16; TEMP 36.2; O2SAT 98
--- NOTE | 2021-10-04 13:13 | PC.NURSE ---
Patient here for IV Magnesium r/t level 1.6. No concerns voiced. IV Magnesium administered. SEE MAR.
== END 2021-10-04 10:09 | disposition home or self-care (01) ==
LOC: CHSTREATRM 10:11
PROVIDERS: PCP Internal Medicine; Visit Provider Internal Medicine
DX: E83.42 Hypomagnesemia (principal)
CPT/HCPCS: 96365; 96366; J3475; J7050

== ENCOUNTER 2021-10-10 09:35 | Outpatient (CLI) | payer MEDICARE, BC, SELFPAY ==
[2021-10-10 09:42] VITALS: BMI 12.9
[2021-10-10 10:12] VITALS: BP 142/81; PULSE 68; RESP 14; TEMP 36.6; O2SAT 96
--- NOTE | 2021-10-10 13:14 | PC.NURSE ---
Patient here for Magnesium IV infusion for Mag level 1.3. No concerns voiced. IV Magnesium administered. SEE MAR. Tolerated well. Safe exit of hospital.
== END 2021-10-10 09:36 | disposition home or self-care (01) ==
LOC: CHSTREATRM 09:37
PROVIDERS: PCP Internal Medicine; Visit Provider Internal Medicine
DX: E83.42 Hypomagnesemia (principal)
CPT/HCPCS: 96365; 96366; J3475; J7050

== ENCOUNTER 2021-10-17 14:10 | Outpatient (RCR) | payer MEDICARE, SELFPAY ==
[2021-07-19 15:55] LABS: Magnesium 1.7 mg/dL (1.8-2.4)
[2021-09-22 13:47] LABS: Magnesium 1.4 mg/dL (1.8-2.4)
[2021-09-27 11:40] LABS: Magnesium 1.2 mg/dL (1.8-2.4)
[2021-10-03 11:09] LABS: Magnesium 1.6 mg/dL (1.8-2.4)
[2021-10-08 11:24] LABS: Magnesium 1.3 mg/dL (1.8-2.4)
[2021-10-14 11:05] LABS: Magnesium 1.3 mg/dL (1.8-2.4)
--- NOTE | 2021-10-17 18:14 | PC.NURSE ---
Patient arrived on unit for outpatient infusion. RN placed 20G IV in lac and started the magnesium infusion. Offered patient water and blanket. Approximately 20 minutes into infusion pt c/o discomfort and swelling to lac where IV was placed. Another RN on unit discontinued IV site and started new 22g in rac.
--- NOTE | 2021-10-17 18:18 | PC.NURSE ---
Pt given cold compress for left arm. Swelling has diminished. Patient reports no pain to arm. Pt. resting comfortable in recliner. Patient independent in room.
--- NOTE | 2021-10-17 18:49 | PC.NURSE ---
Pt. infusion complete. Discontinued IV site. No complications.
--- NOTE | 2021-10-17 19:09 | PC.NURSE ---
Patient's IV infusion completed. IV removed and patient discharged. No c/o side effects from the IV. Instructed on IV site care. Patient stated understanding. Patient tolerated procedure well.
== END 2021-10-17 23:59 | disposition home or self-care (01) ==
LOC: CHSTREATRM 14:10
PROVIDERS: PCP Internal Medicine; Visit Provider Internal Medicine
DX: E83.42 Hypomagnesemia (principal)
CPT/HCPCS: 36415; 83735; 96365; 96366; J3475; J7050

== ENCOUNTER 2021-11-02 00:22 | Day surgery (SDC) | payer MEDICARE, BC, SELFPAY ==
[2021-10-20 15:00] VITALS: BMI 27.6
--- NOTE | 2021-10-20 15:42 | PC.NURSE ---
Report to the Outpatient Waiting Room, entrance under the green pavilion located off [facility], at time _8:30AM on date __11/02/21 . OR Time: __10:30AM . - You and your visitor will be asked a series of questions to screen for COVID 19 for your protection. - A mask is required within the hospital. Preoperative COVID Testing Requirements: No COVID Test needed if: (proof is required; if not received patient will have Rapid Test prior to entry) - Patient has received COVID Vaccine at least 14 days prior to procedure date or - Patient has positive COVID test result within last 90 days of surgery date. COVID Test needed if above criteria is not met If not COVID vaccinated a COVID test must be conducted within 72 hours of surgery and patient is asked to isolate self from time of testing until procedure. You will go to the [facility] for your COVID testing. The [facility] site is located at the corner of [address] [facility]. You will only be called if COVID results are positive and your surgeon may reschedule your elective surgery date. Patients may have clear liquids (water, carbonated beverages, clear teas, apple juice) until 3 hours prior to surgery with a maximum of 20 ounces. - No food from midnight until time of surgery - Infants may have breast milk until 4 hours before surgery, formula 6 hours prior to surgery. - Children will be allowed to drink immediately following surgery. If applicable, please bring a bottle or sippy cup to assist with drinking. Juice, water, soda, and popsicles are readily available. For infants on formula, please bring formula the day of surgery. Pacifiers are allowed. Take the following medications with a SIP of water the morning of surgery: ___DIGOXIN, LEVOTHYROXINE, METOPROLOL, MECLIZINE NEEDED Medications to discontinue per physician ____ALL VITAMINS/SUPPLEMENTS 3 DAYS PRE-OP Date to take last dose____10/29/21 Please no make-up, nail korean, hairspray, perfume, deodorant, or body powder the day of surgery. No jewelry (including any body piercings) or valuables the day of surgery, leave them at home. Please take a shower or bath the night before, or the morning of, surgery with an antibacterial soap. Wear comfortable, loose fitting clothing. Children are encouraged to wear pajamas. - Jewelry must be removed prior to entering the operating room. Rings and piercings that are not removed may be cut off. - The hospital will not accept responsibility for valuables. - Please leave all valuables, including medications, at home the day of surgery. If you are going home after surgery, a licensed hook up driver must drive you home. - NO public transportation without another adult. - We recommend that an adult stay with you for 24 hours following discharge. - We also recommend that you do not drive, make important decision, drink alcoholic beverages, or take any drugs that were not prescribed by your health care provider for at least 24 hours after your discharge time. For Pediatric surgeries, we recommend two adults accompany the child home (only one inside the building at this time). One visitor will be allowed to accompany the patient into the hospital. Patients visitor will be instructed to remain with patient at all times or leave the building. We will allow the visitor to come back to the postoperative area when patient is ready. Follow any additional instructions given to you from your surgeon. Telephone instructions given to __PATIENT and asked if any additional questions and then verbalized understanding. Patient advised to call surgeon office or pre surgery nurse liaison [phone] if any additional questions.
[2021-11-02] VITALS (9 sets, daily range): BP systolic 144–168; BP diastolic 77–117; PULSE 70–104; RESP 12–17; TEMP 36.4–37; O2SAT 97–100
[2021-11-02] MEDS: LACTATED RINGERS 1,000 ML 30 ML IV CONT (11:19)
--- NOTE | 2021-11-02 11:33 | SUR.PREOP ---
1108- SPOKE WITH DR. DASH ABOUT ELEVATED BP IN PRE OP. 172/100, HR- 87. PT TOOK METOPROLOL, BUT NOT LOSARTAN THIS MORNING. HE STATED CONTINUE TO MONITOR AND WILL SEE WHAT SHE IS RUNNING DURING THE CASE AND IN PACU.
--- NOTE | 2021-11-02 11:56 | WPDANESEPPF ---
Anes - Initial Pre Proc Eval Procedure: Operation Date: 11/02/21 12:30 Proposed Procedures p Rectal Examination Under Anesthesia, Internal and External Hemorrhoidectomy - Gorge Negro DO Date/Time: 11/02/21 11:56 Surgeon: Gorge Negro DO Pre Op Diagnosis: bleeding internal hemorrhoids Patient Data Age: 81 Gender: F Height: 1.72 m Weight: 81.1 kg Last Vital Signs Temp 37.0 C 11/02/21 11:20 Pulse 77 11/02/21 11:20 Resp 16 11/02/21 11:20 BP 161/111 H 11/02/21 11:20 Pulse Ox 100 11/02/21 11:20 Allergies Allergy/AdvReac Type Severity Reaction Status Date / Time ciprofloxacin Allergy Intermediate Confusion Verified 11/02/21 11:01 codeine Allergy Intermediate Unknown Verified 11/02/21 11:01 iohexol Allergy Intermediate Hives Verified 11/02/21 11:01 [From contrast - CT, X-RAY] Sulfa (Sulfonamide Allergy Intermediate Confusion Verified 11/02/21 11:01 Antibiotics) Home Medications Medication Instructions Recorded Confirmed Type alprazolam 0.5 mg PO HS 11/15/19 11/02/21 History meclizine 25 mg PO TID PRN #20 tablet 04/08/20 11/02/21 Rx dicyclomine 10 mg capsule 10 mg PO QID PRN #180 cap 12/27/20 11/02/21 Rx metoprolol tartrate 25 mg PO BID 02/24/21 11/02/21 History fenofibrate micronized 134 mg PO DAILY 04/11/21 11/02/21 History spironolactone 25 mg PO QAM 04/11/21 11/02/21 History acetaminophen [Tylenol Arthritis] 1,300 mg PO BID 05/12/21 11/02/21 History digoxin 125 mcg PO DAILY 06/22/21 11/02/21 History mecobalamin (vitamin B12) 1,000 1,000 mcg PO DAILY 10/12/21 11/02/21 History mcg chewable tablet cholecalciferol (vitamin D3) 25 mcg PO DAILY 10/20/21 11/02/21 History levothyroxine 25 mcg PO QAM 10/20/21 11/02/21 History losartan 100 mg PO HS 10/20/21 11/02/21 History magnesium 100 mg PO QID 10/20/21 11/02/21 History Patient hx anesthesia problems: none Family hx anesthesia problems: none Results Review: All pre-operative results and documents have been reviewed as part of the pre-operative evaluation. [facility] Past Medical History Medical History Adult hypothyroidism Aftercare following knee joint replacement surgery Atrial fibrillation External hemorrhoids ABEL (generalized anxiety disorder) GERD (gastroesophageal reflux disease) HTN (hypertension) (02/28/18) Hypomagnesemia (01/17/18) Rectal bleeding Sleep apnea SVT (supraventricular tachycardia) Surgical History Surgical History History of appendectomy History of hernia repair History of lumpectomy of left breast Hx laparoscopic cholecystectomy Hx of coronary artery disease Hx of joint replacement Hx of small bowel obstruction Family History Family History Father Family history of chronic obstructive pulmonary disease Family history of coronary artery disease Father Family history of coronary artery disease Family history of chronic obstructive pulmonary disease Mother Hypertension Mother Hypertension Father Family history of coronary artery disease Family history of chronic obstructive pulmonary disease Other Diabetes mellitus Family history of arthritis Family history of cardiovascular disease Family history of gout Social History Social History Smoking status: Never smoker Alcohol intake: never Substance use: never Substance use type: does not use Living arrangements: with family Additional living arrangements comments: SRAVAN Gender identity (if verbalized by the patient): Female Spiritual care concerns: No Anes - Eval Final PreProcedure Day of Procedure 11/02/21 11:56 Patient weight: overweight Heart: regular rate and rhythm Lungs: clear to auscultation and normal air movement Airway: Mallampati scale class II Neurological: fer
--- NOTE | 2021-11-02 12:21 | WPDHPUPDATE1 ---
History and Physical Update Update Date/Time: 11/02/21 12:21 History and Physical has been reviewed, including an updated exam of the patient. There are NO changes in the patient's condition. Risks, benefits, and alternatives have been discussed and questions answered. Patient agrees to proceed with procedure.
[2021-11-02] MEDS: ceFAZolin 2 GM/D5W 50 ML 2 GM/50 ML BAG IVPB (13:02)
--- NOTE | 2021-11-02 14:04 | W.PM.PROC2 ---
Procedure Note - Detailed Date of Procedure 11/02/21 Pre-op Diagnosis bleeding internal and external hemorrhoids Post-op Diagnosis Same Procedure Performed 1. Internal and external hemorrhoidectomy x 1 column 2. Internal hemorrhoid rubber banding x 1 Surgeon Gorge Negro, DO Anesthesia General and Local (Exparel) Indications This is a 81-year-old woman who presented with rectal bleeding. She was previously on anticoagulation, but this has been held due to the bleeding. She was seen by Gastroenterology and infrared coagulation was attempted a couple times but she had no significant relief. She was then referred for further evaluation. She was found to have a prolapsing internal hemorrhoid in the left posterior location. There was some external hemorrhoid tissue that was slightly engorged along with this area. Discussions were made with the patient about treatment options and decision was made to proceed with rectal exam under anesthesia with internal and external hemorrhoidectomy. Findings Rectal exam under anesthesia was performed. The prominent prolapsing internal hemorrhoid was identified in the left lateral region. This appeared slightly inflamed and friable. In internal and external hemorrhoidectomy was performed in this location. She also had some mild prolapsing hemorrhoid tissue in the right posterior region. Decision was made to perform a rubber-band ligation of the internal hemorrhoid in this location. The internal external hemorrhoid tissue from the left lateral location was excised and sent to the lab for pathology. Description of Procedure Procedure as well as risks, benefits, and alternatives were discussed with the patient. Written consent was obtained and placed in chart prior to procedure. Patient was brought back to surgical suite. She was placed supine on operating table. Time-out was done to confirm patient and procedure. She was then intubated by anesthesia department. She was then repositioned to prone jeremías-knife position. Her perirectal area was prepped and draped in sterile fashion using Betadine prep. Digital rectal exam was initially performed. I then infiltrated Exparel around the perianal tissue. A Hill-Meng anoscope was then inserted in the anal rectal canal was carefully inspected. This was then removed and then a Fansler anoscope was inserted and the left lateral hemorrhoid was chosen as location for excision. A 2-0 chromic [id number]-ko-[id number] suture was placed at the proximal hemorrhoid bundle and this was tied down in place. An elliptical incision was then made around the anal derm extending into the anal rectal canal using a 15 blade scalpel. A curved clamp was then placed across the hemorrhoid tissue and the hemorrhoid tissue was then cut away using curved Metzenbaum scissors. The 2-0 chromic suture was then run from the apex of the hemorrhoid bundle distally to the anal verge over the curved clamp. A curved clamp was carefully removed and the suture was pulled taut. The suture was then run back in a locking fashion all the way back to the apex suture and this was tied down in place. The area was irrigated and hemostasis appeared adequate. The anoderm was then reapproximated using 3-0 chromic simple interrupted sutures. One final inspection was then made around the anal canal and rectum with the Nat anoscope. There did appear to be some prolapsing internal hemorrhoid tissue in the right posterior location but this did not appear acutely inflamed or to be actively bleeding. A rubber band ligation was performed in this location. No other abnormalities were noted. The area was irrigated 1 final time with sterile saline. The anoscope was then removed. Fluff gauze, ABD pad, and mesh underwear were applied. The patient was then awakened from anesthesia, extubated, and transferred to recovery. Estimated Blood Loss 5 Pathology Yes (Left lateral internal and external hemorrhoid) Complications
[2021-11-02] MEDS: fentaNYL CITRATE INJ (*CRX) 100 MCG/2 ML VIAL 25 MCG IV PUSH (14:33)
--- NOTE | 2021-11-02 16:44 | SUR.PHASEII ---
Anesthesia aware of elevated BP. Dr. Coffey said to continue to monitor patient at this time.
== END 2021-11-02 16:05 | disposition home or self-care (01) ==
PROVIDERS: PCP Internal Medicine; Visit Provider Surgery
PROC: (CPT 46255; principal; 2021-11-02 12:30)
DX: K64.8 Other hemorrhoids (principal); K64.4 Residual hemorrhoidal skin tags; E03.9 Hypothyroidism, unspecified; I10 Essential (primary) hypertension; I48.91 Unspecified atrial fibrillation; F41.1 Generalized anxiety disorder; K21.9 Gastro-esophageal reflux disease without esophagitis; G47.30 Sleep apnea, unspecified; I47.1 Supraventricular tachycardia
CPT/HCPCS: 46255; 88304; A9270; C9290; J0690; J1100; J2250; J2405; J2704; J2710; J3010; J7120

== ENCOUNTER 2021-11-23 13:08 | Outpatient (RCR) | payer MEDICARE, BC, SELFPAY ==
--- NOTE | 2021-11-23 13:31 | PTOPEVAL ---
Thank you for referring Peyton Gomez to [facility].? The patient is scheduled to be seen for therapy? __2__x/week for 10 visits. Please review, sign, date and return this plan of care SANTOS. I agree with and certify that the following plan of care is medically necessary. Referring Physician Date Admitting Provider: Attending Provider: Buddy Araya MD Referring Provider: *PT Outpatient Evaluation Start: 11/23/21 13:04 Freq: Status: Active Protocol: Document 11/23/21 13:04 [facility] (Rec: 11/23/21 13:29 [facility] [email or web address]) Therapy Assessment Status Assessment Status Assessment Status Evaluation Outpatient Past Medical History Neurological History Hx Neurological Disorders No Significant History Cardiovascular History Hx Atrial Fibrillation Yes: NEW DIAGNOSIS 05/2021 Hx Cardiac Arrhythmia Yes: SVT FOR YEARS IN THE PAST Hx Cardiac Catheterization Yes Hx Coronary Artery Disease Yes Hx Coronary Stent Yes: 2 STENTS ~2010 Hx Hypercholesterolemia Yes Hx Hypertension Yes Hx Other [facility] Respiratory History Hx Respiratory Disorders No Significant History Gastrointestinal History Hx Appendectomy Yes Hx Bowel Surgery Yes: 24IN. SMALL INTESTINE REMOVED Hx Cholecystectomy Yes Hx Gastroesophageal Reflux Disease Yes Hx Gastrointestinal Bleed Yes: 05/23/21 HEMORRHOIDS BLEED ,AFTER STARTED XARELTO FOR A FIB-XERALTO ON HOLD Hx Hemorrhoids Yes Hx Hernia Yes: STRANGULATED HERNIA- SMALL BOWEL RESECTION ~2009 Hx Irritable Bowel Yes Hx Polyps Yes Hx Other Gastrointestinal Disorders Yes: DIVERTICLOSIS, BLEEDING INTERNAL HEMORRHOIDS Genitourinary History Hx Bladder Surgery Yes: A&P BLADDER SLING Hx Other Genitourinary Disorders Yes: EXTREMELY LOW MAGNESIUM- ORAL+IV INFUSIONS X2-3/MONTH, HAD APPLICATION PROCESSOR CONSU Musculoskeletal History Hx Arthritis Yes: OSTEOARTHRITIS, RT SHOULDER Hx Joint Replacement Yes: R-KNEE-2015, L-KNEE 2016 Hematological History Are You Aware That You Have Any Yes: AFTER BLOOD TRANSFUSION Antibodies? Hx Anemia Yes Hx Blood Transfusions Yes: 5 UNITS DUE TO VAGINAL BLEEDING YEARS AGO Endocrine History Hx Hypothyroidism Yes HEENT History Hx Cataracts
--- NOTE | 2021-12-27 12:11 | PTOPEVAL ---
Thank you for referring Peyton Gomez to [facility].? The patient is scheduled to be seen for therapy? ____x/week for ___ weeks. Please review, sign, date and return this plan of care SANTOS. I agree with and certify that the following plan of care is medically necessary. Referring Physician Date Admitting Provider: Attending Provider: Buddy Araya MD Referring Provider: *PT Outpatient Evaluation Start: 11/23/21 13:04 Freq: Status: Active Protocol: Document 12/27/21 10:00 [facility] (Rec: 12/27/21 11:10 [facility] [id number]) Therapy Assessment Status Assessment Status Assessment Status Discharge Outpatient Past Medical History Neurological History Hx Neurological Disorders No Significant History Cardiovascular History Hx Atrial Fibrillation Yes: NEW DIAGNOSIS 05/2021 Hx Cardiac Arrhythmia Yes: SVT FOR YEARS IN THE PAST Hx Cardiac Catheterization Yes Hx Coronary Artery Disease Yes Hx Coronary Stent Yes: 2 STENTS ~2010 Hx Hypercholesterolemia Yes Hx Hypertension Yes Hx [facility] Respiratory History Hx Respiratory Disorders No Significant History Gastrointestinal History Hx Appendectomy Yes Hx Bowel Surgery Yes: 24IN. SMALL INTESTINE REMOVED Hx Cholecystectomy Yes Hx Gastroesophageal Reflux Disease Yes Hx Gastrointestinal Bleed Yes: 05/23/21 HEMORRHOIDS BLEED ,AFTER STARTED XARELTO FOR A FIB-XERALTO ON HOLD Hx Hemorrhoids Yes Hx Hernia Yes: STRANGULATED HERNIA- SMALL BOWEL RESECTION ~2009 Hx Irritable Bowel Yes Hx Polyps Yes Hx Other Gastrointestinal Disorders Yes: DIVERTICLOSIS, BLEEDING INTERNAL HEMORRHOIDS Genitourinary History Hx Bladder Surgery Yes: A&P BLADDER SLING Hx Other Genitourinary Disorders Yes: EXTREMELY LOW MAGNESIUM- ORAL+IV INFUSIONS X2-3/MONTH, HAD DETECTOR CAR OPERATOR CONSU Musculoskeletal History Hx Arthritis Yes: OSTEOARTHRITIS, RT SHOULDER Hx Joint Replacement Yes: R-KNEE-2015, L-KNEE 2016 Hematological History Are You Aware That You Have Any Yes: AFTER BLOOD TRANSFUSION Antibodies? Hx Anemia Yes Hx Blood Transfusions Yes: 5 UNITS DUE TO VAGINAL BLEEDING YEARS AGO Endocrine History Hx Hypothyroidism Yes HEENT History Hx Cataracts Yes:
== END 2021-12-27 15:24 | disposition home or self-care (01) ==
LOC: CHSPT 13:08
PROVIDERS: PCP Internal Medicine; Visit Provider Internal Medicine
DX: M25.511 Pain in right shoulder (principal)
CPT/HCPCS: 97014; 97110; 97140; 97161; G0283

== ENCOUNTER 2021-12-13 11:14 | Outpatient (RCR) | payer MEDICARE, SELFPAY ==
[2021-10-20 13:54] LABS: Magnesium 1.9 mg/dL (1.8-2.4)
[2021-10-21 08:20] LABS: Digoxin 0.9 ng/mL (0.9-2.0)
[2021-10-27 13:50] LABS: Magnesium 1.7 mg/dL (1.8-2.4)
[2021-11-08 11:30] LABS: Magnesium 1.7 mg/dL (1.8-2.4)
[2021-11-21 10:13] LABS: Magnesium 1.9 mg/dL (1.8-2.4)
[2021-12-13 11:33] LABS: Magnesium 1.7 mg/dL (1.8-2.4)
== END 2022-01-18 23:59 | disposition home or self-care (01) ==
LOC: CHSLAB 11:14
PROVIDERS: Anesthesiology; PCP Internal Medicine; Visit Provider Internal Medicine
DX: E83.42 Hypomagnesemia (principal)
CPT/HCPCS: 36415; 80162; 83735

== ENCOUNTER 2021-12-30 13:13 | Outpatient (RCR) | payer MEDICARE, SELFPAY ==
[2021-12-30 13:44] LABS: Magnesium 1.8 mg/dL (1.8-2.4)
== END 2022-03-30 23:59 | disposition home or self-care (01) ==
LOC: CHSLAB 13:13
PROVIDERS: PCP Internal Medicine; Visit Provider Internal Medicine
DX: E83.42 Hypomagnesemia (principal)
CPT/HCPCS: 36415; 83735

== ENCOUNTER 2022-03-10 10:51 | Outpatient (RCR) | payer MEDICARE, SELFPAY ==
[2022-01-27 11:09] LABS: Magnesium 1.7 mg/dL (1.8-2.4)
[2022-03-10 11:25] LABS: Magnesium 1.7 mg/dL (1.8-2.4)
== END 2022-04-27 23:59 | disposition home or self-care (01) ==
LOC: CHSLAB 10:51
PROVIDERS: PCP Internal Medicine; Visit Provider Internal Medicine
DX: E83.42 Hypomagnesemia (principal)
CPT/HCPCS: 36415; 83735

== ENCOUNTER 2022-05-02 08:24 | Outpatient (CLI) | payer MEDICARE, SELFPAY ==
[2022-05-02 08:43] LABS: Basophils Absolute Auto 0.09 K/mm3 (0.00-0.10); Basophils Percent Auto 1.4 % (0.0-1.0); Hematocrit 47.6 % (35.0-42.0); Hemoglobin 16.2 g/dL (11.7-13.8); Immature Granulocyte Absolute 0.01 K/mm3 (0.00-0.00); Immature Granulocyte Percent A 0.2 % (0.0-0.0); Lymphocytes Absolute Auto 1.91 K/mm3 (1.10-4.50); Lymphocytes Percent Auto 28.8 % (18.0-42.0); Mean Corpuscular Hemoglobin 35.1 pg (27.0-31.0); Mean Platelet Volume 9.3 fl (9.2-11.8); Monocytes Absolute Auto 0.68 K/mm3 (0.10-0.90); Monocytes Percent Auto 10.3 % (2.0-11.0); Neutrophils Absolute Auto 3.7 K/mm3 (1.7-7.2); Neutrophils Percent Auto 56.3 % (50.0-70.0); Platelet Count Result 241 K/mm3 (150-420); Red Blood Count 4.62 M/mm3 (4.20-5.40); Red Cell Distribution Width 12.6 % (11.6-14.4); White Blood Count 6.6 K/mm3 (4.8-10.8)
[2022-05-02 09:11] LABS: Alanine Aminotransferase 14 U/L (14-59); Alkaline Phosphatase 37 U/L (46-116); Anion Gap 5 mmol/L (8-16); Aspartate Amino Transferase 16 U/L (15-37); Bilirubin,Total 0.8 mg/dL (0.00-1.00); Blood Urea Nitrogen 21 mg/dL (7-18); Calcium 9.9 mg/dL (8.5-10.1); Carbon Dioxide 33 mmol/L (21-32); Chloride 100 mmol/L (98-108); Cholesterol 177 mg/dL (0-200); Estimated Glomerular Filt Rate 49; Glucose 95 mg/dL (70-99); HDL Direct 49 mg/dL (40-60); LDL Cholesterol Calculated 109 mg/dL (<130); Magnesium 1.6 mg/dL (1.8-2.4); NT Pro B Type Natriuretic Pept 1452 pg/mL (0-450); Osmolality Calculated 289 mOsm/kg (285-295); Potassium 4.7 mmol/L (3.5-5.1); Sodium 138 mmol/L (136-145); Thyroid Stimulating Hormone 2.16 uIU/mL (0.36-3.74); Total Protein 7.1 g/dL (6.4-8.2); Triglycerides 96 mg/dL (0-150)
== END 2022-05-02 08:25 | disposition home or self-care (01) ==
LOC: CHSLAB 08:26
PROVIDERS: PCP Internal Medicine; Visit Provider Internal Medicine
DX: R06.00 Dyspnea, unspecified (principal); E03.9 Hypothyroidism, unspecified; E83.42 Hypomagnesemia
CPT/HCPCS: 36415; 80053; 80061; 83735; 83880; 84443; 85025

== ENCOUNTER 2022-05-26 09:54 | Outpatient (CLI) | payer MEDICARE, SELFPAY ==
[2022-05-26 10:17] VITALS: BMI 28.0
[2022-05-26 10:18] VITALS: BP 150/84; PULSE 72; RESP 18; TEMP 36.6; O2SAT 98
--- NOTE | 2022-05-26 13:30 | PC.NURSE ---
Patient here for IV Magnesium infusion r/t Mag level 1.3. Has not had magnesium infusion since October. No concerns voiced. Education given. IV Magnesium administered. SEE MAR. Tolerated well. Safe exit of hospital.
== END 2022-05-26 09:55 | disposition home or self-care (01) ==
LOC: CHSTREATRM 09:56
PROVIDERS: PCP Internal Medicine; Visit Provider Internal Medicine
DX: E83.42 Hypomagnesemia (principal)
CPT/HCPCS: 96365; 96366; J3475; J7050

== ENCOUNTER 2022-06-02 13:31 | Outpatient (CLI) | payer MEDICARE, BC, SELFPAY ==
[2022-06-02 13:42] VITALS: BMI 28.0
[2022-06-02 14:00] VITALS: BP 153/78; PULSE 70; RESP 14; TEMP 36.3; O2SAT 99
--- NOTE | 2022-06-02 14:13 | PC.NURSE ---
Patient here for Magnesium infusion IV for Mag level 1.3. Magnesium IV administration started. No concerns voiced.
== END 2022-06-02 13:32 | disposition home or self-care (01) ==
LOC: CHSTREATRM 13:36
PROVIDERS: PCP Internal Medicine; Visit Provider Internal Medicine
DX: E83.42 Hypomagnesemia (principal)
CPT/HCPCS: 36415; 83735; 96365; 96366; J3010; J3475; J7050

== ENCOUNTER 2022-08-03 13:17 | Outpatient (RCR) | payer MEDICARE, SELFPAY ==
[2022-05-25 14:07] LABS: Magnesium 1.3 mg/dL (1.8-2.4)
[2022-05-30 12:19] LABS: Magnesium 1.5 mg/dL (1.8-2.4)
[2022-06-02 08:34] LABS: Magnesium 1.3 mg/dL (1.8-2.4)
[2022-06-05 09:20] LABS: Magnesium 1.4 mg/dL (1.8-2.4)
[2022-06-13 13:05] LABS: Magnesium 1.5 mg/dL (1.8-2.4)
[2022-06-14 11:21] LABS: Alanine Aminotransferase 18 U/L (14-59); Albumin Level 3.9 g/dL (3.4-5.0); Alkaline Phosphatase 45 U/L (46-116); Anion Gap 8 mmol/L (8-16); Aspartate Amino Transferase 18 U/L (15-37); Bilirubin,Total 1.7 mg/dL (0.00-1.00); Blood Urea Nitrogen 23 mg/dL (7-18); Calcium 9.7 mg/dL (8.5-10.1); Carbon Dioxide 29 mmol/L (21-32); Chloride 104 mmol/L (98-108); Estimated Glomerular Filt Rate 55; Glucose 84 mg/dL (70-99); Osmolality Calculated 294 mOsm/kg (285-295); Sodium 141 mmol/L (136-145)
[2022-06-27 10:59] LABS: Magnesium 1.7 mg/dL (1.8-2.4)
[2022-08-03 13:44] LABS: Magnesium 1.5 mg/dL (1.8-2.4)
== END 2022-08-23 23:59 | disposition home or self-care (01) ==
LOC: CHSLAB 13:17
PROVIDERS: PCP Internal Medicine; Visit Provider Internal Medicine
DX: E83.42 Hypomagnesemia (principal); E83.52 Hypercalcemia
CPT/HCPCS: 36415; 80053; 83735; 96365; 96366; J3475; J7050

== ENCOUNTER 2022-08-28 14:14 | Outpatient (CLI) | payer MEDICARE, BC, SELFPAY ==
--- NOTE | ~2022-08-28 | MM_ITS ---
EXAMINATION: MM screening hannah BI w joel HISTORY: Screening mammogram TECHNIQUE: Craniocaudal and mediolateral oblique 3-D tomosynthesis images were obtained and synthetic 2-D images were generated. CAD analysis was submitted and interpreted. COMPARISON: August 26, 2021, August 02, 2020, July 24, 2019 bilateral screening mammogram examin ations BREAST PARENCHYMAL COMPOSITION: There are scattered areas of fibroglandular density. FINDINGS: There is no evidence of suspicious mass, calcification, or architectural distortion to sugg est malignancy in either breast. There has been no suspicious interval change. IMPRESSION: 1. No mammographic evidence of malignancy. 2. Recommend routine screening mammography in one year. BI-RADS Category 1: Negative Reviewed, dictated and finalized at location A. ATING ROOM RN
== END 2022-08-28 14:15 | disposition home or self-care (01) ==
LOC: CHSIMG 14:17
PROVIDERS: PCP Internal Medicine; Visit Provider Internal Medicine
DX: Z12.31 Encounter for screening mammogram for malignant neoplasm of breast (principal)
CPT/HCPCS: 77063; 77067

== ENCOUNTER 2022-10-17 03:45 | Emergency (ER) | payer MEDICARE, BC, SELFPAY ==
--- NOTE | ~2022-10-17 | CT_ITS ---
EXAMINATION: CT cervical spine wo con DATE: 10/17/2022 04:47 INDICATION: Head injury. Neck pain. Fall. TECHNIQUE: Computed tomography (CT) of the cervical spine was performed without intravenous contrast. Automated exposure control and iterative reconstruction technique were employed. The dose-length pro duct was 681.00 mGy-cm. COMPARISON: None FINDINGS: There is 2 mm anterolisthesis of C3 on C4, C4 on C5, C5 on C6, and C7 on T1. Vertebral body heights are normal. 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 There is mildly d ecreased disc height at C4-C5 and C5-C6, severely decreased disc height at C6-C7, and mildly decrease d disc height at C7-T1. The following disc levels are specifically discussed: C2-C3: There is mild bilateral uncovertebral joint osteoarthritis. There is moderate right and severe left facet joint osteoarthritis. There is mild left neural foraminal stenosis. There is no central c anal stenosis. C3-C4: There is mild left uncovertebral joint osteoarthritis. There is severe bilateral facet joint o steoarthritis. There is mild left neural foraminal stenosis. There is mild central canal stenosis. C4-C5: There is severe left uncovertebral joint osteoarthritis. There is severe bilateral facet joint osteoarthritis. There is moderate left neural foraminal stenosis. There is mild central canal stenos is. C5-C6: There is mild bilateral uncovertebral joint osteoarthritis. There is severe bilateral facet meir int osteoarthritis. There is mild bilateral neural foraminal stenosis. There is mild central canal st enosis. C6-C7: There is severe bilateral uncovertebral joint osteoarthritis. There is severe bilateral facet joint osteoarthritis. There is mild bilateral neural foraminal stenosis. There is mild central canal stenosis. C7-T1: There is mild left uncovertebral joint osteoarthritis. There is severe bilateral facet joint o steoarthritis. There is mild left neural foraminal stenosis. There is mild central canal stenosis. IMPRESSION: 1. No acute fracture. 2. 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 3. Severe cervical spondylosis. Reviewed, dictated and finalized at location A.
--- NOTE | ~2022-10-17 | XR_ITS ---
EXAMINATION: XR knee RT 3V DATE: 10/17/2022 04:47 INDICATION: Right knee and swelling pain post fall TECHNIQUE: Anteroposterior, sunrise and crosstable lateral views of the right knee were obtained COMPARISON: 01/13/2021 and 08/19/2018 FINDINGS: Right total knee arthroplasty with patellar resurfacing. The femoral and tibial components appear wel l seated in near-anatomic alignment. There is unchanged patella torrie with chronic fracture deformity of the patella including small nonunited fragment along the caudal margin. No acute fracture identifi ed. Prominent soft tissue swelling anterior to the knee with increased density in the region of the s ubcutaneous fat consistent with a likely hematoma. No right knee joint effusion. IMPRESSION: 1. No right knee joint effusion or acute osseous abnormality. 2. Right total knee arthroplasty with unchanged patella torrie and chronic patellar fracture deformity including small chronic nonunited fragment. Reviewed, dictated and finalized at location A. IMPRESSION: 1. No right knee joint effusion or acute osseous abnormality. 2. Right total knee arthroplasty with unchanged patella torrie and chronic patell ar fracture deformity including small chronic nonunited fragment.
--- NOTE | ~2022-10-17 | CT_ITS ---
EXAMINATION: CT brain wo con DATE: 10/17/2022 04:47 INDICATION: Anterior head injury post fall in an anticoagulated patient. TECHNIQUE: Computed tomography (CT) of the head was performed without intravenous contrast. Sagittal and coronal reconstructions were performed. The mA was adjusted according to patient size. Iterative reconstruction technique was employed. The dose-length product was 681.00 mGy-cm. COMPARISON: head CT dated 09/11/2014 FINDINGS: No fracture. No acute intracranial hemorrhage, acute infarction or abnormal extra axial fluid collect ion. There is mild scattered white matter hypoattenuation consistent with chronic small vessel ischem ic disease. Symmetric prominence of the sulci consistent with mild age-appropriate diffuse cerebral volume loss. Ventricles are normal and symmetric. No mass/mass effect. Changes of bilateral intraocu lar lens replacement. No interval change in a small metallic density at the anterior left globe along its cephalad margin of the prosthetic lens also likely postoperative in etiology. Mild mucosal thick ening in the right maxillary sinus. Intracranial calcified cerebral atherosclerosis is noted. Mastoid air cells and middle ear cavities are clear. IMPRESSION: 1. No fracture or acute intracranial process. 2. Age-related changes including mild diffuse volume loss and mild scattered white matter hypoattenua tion consistent with chronic small vessel ischemic disease. Reviewed, dictated and finalized at location A. IMPRESSION: 1. No fracture or acute intracranial process. 2. Age-related changes including mild diffuse volume loss and mild scattered wh ite matter hypoattenuation consistent with chronic small vessel ischemic diseas e.
--- NOTE | ~2022-10-17 | XR_ITS ---
EXAMINATION: XR knee LT 3V DATE: 10/17/2022 04:48 INDICATION: Left knee pain and swelling post fall TECHNIQUE: Anteroposterior, sunrise and crosstable lateral views of the left knee were obtained COMPARISON: 04/17/2022 and 01/13/2021 FINDINGS: Left total knee arthroplasty with patellar resurfacing. The femoral and tibial components appearing t o remain well seated in near-anatomic alignment. Unchanged patella torrie and chronic patella fracture. This includes a transverse fracture plane which remains nonunited with approximately 1 cm distractio n. No acute fracture. Soft tissues are unremarkable with no knee joint effusion. IMPRESSION: 1. No left knee joint effusion or acute osseous abnormality. 2. Left total knee arthroplasty with relatively stable appearance of chronic patella torrie and chronic comminuted patellar fracture portion of comminuted which remains chronically nonunited. Reviewed, dictated and finalized at location A. IMPRESSION: 1. No left knee joint effusion or acute osseous abnormality. 2. Left total knee arthroplasty with relatively stable appearance of chronic pa tella torrie and chronic comminuted patellar fracture portion of comminuted which remains chronically nonunited.
[2022-10-17 03:49] VITALS: BP 152/86; PULSE 72; RESP 16; TEMP 36.4; O2SAT 100
--- NOTE | 2022-10-17 04:02 | ED.GENADULT ---
HPI - General Adult General Chief complaint: Fall Stated complaint: fall Time Seen by Provider: 10/17/22 03:57 History of Present Illness HPI narrative: Peyton is an 82F with a PMH of Afib, hemorrhoids, and HTN that presented to the ED after a fall. She got up to go to the bathroom and her right knee gave out and she fell hitting her right forehead. There was no CP, palpitations, dyspnea, or lightheadedness prior to falling. No LOC. Related Data Home Medications Medication Instructions Recorded Confirmed alprazolam 0.5 mg tablet 0.5 mg PO TID PRN Anxiety 11/15/19 10/24/22 metoprolol tartrate 25 mg tablet 25 mg PO BID 02/24/21 10/24/22 spironolactone 25 mg tablet 25 mg PO QAM 04/11/21 10/24/22 digoxin 125 mcg (0.125 mg) tablet 125 mcg PO DAILY 06/22/21 10/24/22 cholecalciferol (vitamin D3) 25 25 mcg PO DAILY 10/20/21 10/24/22 mcg (1,000 unit) capsule levothyroxine 25 mcg capsule 25 mcg PO QAM 10/20/21 10/24/22 losartan 100 mg tablet 100 mg PO HS 10/20/21 10/24/22 magnesium 100 mg tablet 100 mg PO QID 10/20/21 10/24/22 verapamil 120 mg tablet 120 mg PO BID 09/05/22 10/24/22 duloxetine 20 mg capsule,delayed 20 mg PO HS 10/17/22 10/24/22 release rivaroxaban 20 mg tablet (Xarelto) 20 mg PO DAILY 10/17/22 10/24/22 Allergies Allergy/AdvReac Type Severity Reaction Status Date / Time ciprofloxacin Allergy Intermediate Confusion Verified 10/24/22 08:58 codeine Allergy Intermediate Unknown Verified 10/24/22 08:58 iohexol Allergy Intermediate Hives Verified 10/24/22 08:58 [From contrast - CT, X-RAY] Sulfa (Sulfonamide Allergy Intermediate Confusion Verified 10/24/22 08:58 Antibiotics) Review of Systems Review of Systems: All systems reviewed & are unremarkable except as noted in HPI and below PMFSH Past Medical History Medical History (Updated 10/24/22 @ 09:36 by Pramod Zavala MD) Adult hypothyroidism Aftercare following knee joint replacement surgery Atrial fibrillation External hemorrhoids ABEL (generalized anxiety disorder) GERD (gastroesophageal reflux disease) HTN (hypertension) (02/28/18) Hypomagnesemia (01/17/18) Rectal bleeding Sleep apnea SVT (supraventricular tachycardia) Surgical History Surgical History (Updated 10/24/22 @ 12:06 by Zakia Drummond MA) H/O hemorrhoidectomy 11/02/21 1. Internal and external hemorrhoidectomy x 1 column 2. Internal hemorrhoid rubber banding x 1 History of appendectomy History of hernia repair History of lumpectomy of left breast History of total right knee replacement Hx laparoscopic cholecystectomy Hx of coronary artery disease Hx of joint replacement Hx of small bowel obstruction Family History Family History Father Family history of chronic obstructive pulmonary disease Family history of coronary artery disease Father Family history of coronary artery disease Family history of chronic obstructive pulmonary disease Mother Hypertension Mother Hypertension Father Family history of coronary artery disease Family history of chronic obstructive pulmonary disease Other Diabetes mellitus Family history of arthritis Family history of cardiovascular disease Family history of gout Social History Social History Smoking status: Never smoker Alcohol intake: never Substance use: never Substance use type: does not use Living arrangements: with family Additional living arrangements comments: SRAVAN Occupation/Education: retired Gender identity (if verbalized by the patient): Female Spiritual care concerns: No Exam Const: General: healthy appearing, no acute distress and alert; No confusion Nutritional Appearance: well nourished Orientation/consciousness: patient oriented x3 Limitations: no limitations HENMT: Head: contusion right frontal Ears: external ears normal Face/Nose/Sinus: Normal external nose p
[2022-10-17] MEDS: traMADol HCL (*CRX) 50 MG TABLET PO (04:55)
--- NOTE | 2022-10-17 05:06 | PC.NURSE ---
Pt repositioned in bed for comfort and knee/leg elevated on pillow, Hesham wrap applied to knee for compression per ERP order and ice packs reapplied. Call alfred at pt side, awaiting CT results.
[2022-10-17 05:07] VITALS: BP 165/80; PULSE 78; RESP 18; O2SAT 97
[2022-10-17 05:47] LABS: Basophils Absolute Auto 0.07 K/mm3 (0.00-0.10); Basophils Percent Auto 0.4 % (0.0-1.0); Eosinophils Absolute Auto 0.07 K/mm3 (0.02-0.50); Eosinophils Percent Auto 0.4 % (1.0-6.0); Hematocrit 47.8 % (35.0-42.0); Hemoglobin 16.4 g/dL (11.7-13.8); Immature Granulocyte Absolute 0.09 K/mm3 (0.00-0.00); Immature Granulocyte Percent A 0.5 % (0.0-0.0); Lymphocytes Absolute Auto 1.31 K/mm3 (1.10-4.50); Lymphocytes Percent Auto 7.8 % (18.0-42.0); Mean Corpuscular HGB Conc 34.3 g/dL (32.0-36.0); Mean Corpuscular Hemoglobin 34.7 pg (27.0-31.0); Mean Corpuscular Volume 101.1 fL (78.0-102.0); Mean Platelet Volume 9.2 fl (9.2-11.8); Monocytes Absolute Auto 1.07 K/mm3 (0.10-0.90); Monocytes Percent Auto 6.4 % (2.0-11.0); Neutrophils Absolute Auto 14.2 K/mm3 (1.7-7.2); Neutrophils Percent Auto 84.5 % (50.0-70.0); Platelet Count Result 235 K/mm3 (150-420); Red Blood Count 4.73 M/mm3 (4.20-5.40); Red Cell Distribution Width 12.2 % (11.6-14.4); White Blood Count 16.8 K/mm3 (4.8-10.8)
[2022-10-17 06:00] LABS: INR 1.4; Prothrombin Time 14.6 Seconds (9.50-12.10)
[2022-10-17 06:10] LABS: Alanine Aminotransferase 17 U/L (14-59); Albumin Level 3.9 g/dL (3.4-5.0); Alkaline Phosphatase 37 U/L (46-116); Anion Gap 4 mmol/L (8-16); Aspartate Amino Transferase 24 U/L (15-37); Bilirubin,Total 0.9 mg/dL (0.00-1.00); Blood Urea Nitrogen 29 mg/dL (7-18); Calcium 10.1 mg/dL (8.5-10.1); Carbon Dioxide 31 mmol/L (21-32); Chloride 101 mmol/L (98-108); Estimated CRCL calculation 39 ml/min; Estimated Glomerular Filt Rate 52; Glucose 105 mg/dL (70-99); Magnesium 1.5 mg/dL (1.8-2.4); Osmolality Calculated 287 mOsm/kg (285-295); Potassium 4.9 mmol/L (3.5-5.1); Sodium 136 mmol/L (136-145)
[2022-10-17 06:25] VITALS: BP 155/81; PULSE 74; RESP 18; TEMP 36.6; O2SAT 97
== END 2022-10-17 06:36 | disposition home or self-care (01) ==
PROVIDERS: Emergency Provider Family Medicine; PCP Internal Medicine
DX: S00.83XA Contusion of other part of head, initial encounter (principal); D72.829 Elevated white blood cell count, unspecified; I10 Essential (primary) hypertension; I48.91 Unspecified atrial fibrillation; E03.9 Hypothyroidism, unspecified; Z79.01 Long term (current) use of anticoagulants; W18.39XA Other fall on same level, initial encounter; Y92.002 Bathroom of unspecified non-institutional (private) residence as the place of occurrence of the external cause
CPT/HCPCS: 36415; 70450; 72125; 73562; 80053; 83735; 85025; 85610; 99284; A9270

== ENCOUNTER 2022-10-18 19:01 | Outpatient (CLI) | payer MEDICARE, SELFPAY ==
[2022-10-18 19:18] LABS: Basophils Absolute Auto 0.09 K/mm3 (0.00-0.10); Basophils Percent Auto 0.8 % (0.0-1.0); Eosinophils Percent Auto 1.8 % (1.0-6.0); Hematocrit 44.5 % (35.0-42.0); Hemoglobin 15.1 g/dL (11.7-13.8); Immature Granulocyte Absolute 0.04 K/mm3 (0.00-0.00); Immature Granulocyte Percent A 0.4 % (0.0-0.0); Lymphocytes Absolute Auto 2.36 K/mm3 (1.10-4.50); Lymphocytes Percent Auto 20.7 % (18.0-42.0); Mean Corpuscular HGB Conc 33.9 g/dL (32.0-36.0); Mean Corpuscular Hemoglobin 35.2 pg (27.0-31.0); Mean Corpuscular Volume 103.7 fL (78.0-102.0); Mean Platelet Volume 9.6 fl (9.2-11.8); Monocytes Absolute Auto 1.18 K/mm3 (0.10-0.90); Monocytes Percent Auto 10.4 % (2.0-11.0); Neutrophils Absolute Auto 7.5 K/mm3 (1.7-7.2); Neutrophils Percent Auto 65.9 % (50.0-70.0); Platelet Count Result 234 K/mm3 (150-420); Red Blood Count 4.29 M/mm3 (4.20-5.40); Red Cell Distribution Width 12.7 % (11.6-14.4); White Blood Count 11.4 K/mm3 (4.8-10.8)
[2022-10-18 20:03] LABS: Alanine Aminotransferase 27 U/L (14-59); Albumin Level 4.1 g/dL (3.4-5.0); Alkaline Phosphatase 42 U/L (46-116); Anion Gap 9 mmol/L (8-16); Aspartate Amino Transferase 33 U/L (15-37); Bilirubin,Total 1.3 mg/dL (0.00-1.00); Blood Urea Nitrogen 26 mg/dL (7-18); CRP 7.1 mg/dL (0.0-0.9); Calcium 10.2 mg/dL (8.5-10.1); Carbon Dioxide 31 mmol/L (21-32); Chloride 99 mmol/L (98-108); Estimated Glomerular Filt Rate 53; Glucose 97 mg/dL (70-99); Osmolality Calculated 292 mOsm/kg (285-295); Potassium 4.8 mmol/L (3.5-5.1); Sodium 139 mmol/L (136-145); Total Protein 7.1 g/dL (6.4-8.2)
== END 2022-10-18 19:02 | disposition home or self-care (01) ==
LOC: CHSLAB 19:03
PROVIDERS: PCP Internal Medicine; Visit Provider Internal Medicine
DX: R23.8 Other skin changes (principal); D72.829 Elevated white blood cell count, unspecified
CPT/HCPCS: 36415; 80053; 85025; 86140; 87070; 87205

== ENCOUNTER 2022-10-20 20:19 | Emergency (ER) | payer MEDICARE, BC, SELFPAY ==
[2022-10-20 20:29] VITALS: BP 154/85; PULSE 89; RESP 19; TEMP 36.4; O2SAT 92
--- NOTE | 2022-10-20 20:33 | ED.GENADULT ---
HPI - General Adult General Chief complaint: Extremity Injury, Lower Stated complaint: Open Wound R Knee Time Seen by Provider: 10/20/22 20:35 History of Present Illness HPI narrative: The patient is an 82-year-old woman who fell on 10/17/2022, 3 days ago. She was seen here in the emergency room, underwent CT imaging of the head and neck, and x-rays of both knees. She is status post bilateral total knee replacement. X-rays did not reveal any fractures or dislocations. While in the emergency room, the patient's right knee hematoma increased in size. Consultation was obtained from Orthopedic surgery at [facility], who recommended aspiration. This was attempted in the emergency room but without success. She was subsequently seen by her primary care provider the next day, 10/18/2022: a Gram stain was obtained of the wound, g stain was negative for organisms. The puncture is wound where the attempted knee aspiration was performed is now leaking, on the medial aspect of the right knee. The PCP has placed her on doxycycline and levofloxacin, to also cover a urinary tract infection. She is currently on both antibiotics. She is applying Polysporin to the wound and covering with a Kerlix roll. She has a blister in the area that ruptured. She has a dark eschar on the anterior knee that she is concerned about. He is able to ambulate with a walker. No fevers or chills. she is due to see Orthopedic surgery in 4 days, 10/24/2022. She comes in because of the eschar at the right knee, and the larger size of the hematoma in the right knee. She is on Xarelto anticoagulation for atrial fibrillation. Also history of hypertension. She continues to take Xarelto. Related Data Home Medications Medication Instructions Recorded Confirmed alprazolam 0.5 mg tablet 0.5 mg PO TID PRN Anxiety 11/15/19 10/20/22 metoprolol tartrate 25 mg tablet 25 mg PO BID 02/24/21 10/20/22 spironolactone 25 mg tablet 25 mg PO QAM 04/11/21 10/20/22 digoxin 125 mcg (0.125 mg) tablet 125 mcg PO DAILY 06/22/21 10/20/22 cholecalciferol (vitamin D3) 25 25 mcg PO DAILY 10/20/21 10/20/22 mcg (1,000 unit) capsule levothyroxine 25 mcg capsule 25 mcg PO QAM 10/20/21 10/20/22 losartan 100 mg tablet 100 mg PO HS 10/20/21 10/20/22 magnesium 100 mg tablet 100 mg PO QID 10/20/21 10/20/22 verapamil 120 mg tablet 120 mg PO BID 09/05/22 10/20/22 duloxetine 20 mg capsule,delayed 20 mg PO HS 10/17/22 10/20/22 release rivaroxaban 20 mg tablet (Xarelto) 20 mg PO DAILY 10/17/22 10/20/22 Allergies Allergy/AdvReac Type Severity Reaction Status Date / Time ciprofloxacin Allergy Intermediate Confusion Verified 10/20/22 20:29 codeine Allergy Intermediate Unknown Verified 10/20/22 20:29 iohexol Allergy Intermediate Hives Verified 10/20/22 20:29 [From contrast - CT, X-RAY] Sulfa (Sulfonamide Allergy Intermediate Confusion Verified 10/20/22 20:29 Antibiotics) Review of Systems Review of Systems: All systems reviewed & are unremarkable except as noted in HPI and below Constitutional: Constitutional: Reports as per HPI, Reports no additional constitutional complaints, Denies chills, Denies excessive sweating, Denies fatigue, Denies fever(s), Denies headache(s) and Denies weakness Eyes: Eyes: Reports as per HPI, Reports no additional eye complaints, Denies change in vision and Denies photophobia ENT: Reports system reviewed and no additional complaints, except as documented, Reports as per HPI, Denies dysphagia, Denies vertigo, Denies dizziness, Denies headache(s), Denies lip swelling, Denies nasal congestion, Denies sore throat, Denies throat swelling and Denies tongue swelling Cardiovascular: Cardiovascular: Reports as per HPI, Reports no additional cardiovascular complaints, Denies chest pain, Denies syncope, Denies rapid heart rate and Denies dyspnea Respiratory: Respiratory: Reports as per HPI, Reports no additional respiratory complaints, Denies chest congestion, Denies coug
[2022-10-20] MEDS: SILVER SULFADIAZINE 1% CR 50 GM JAR (*BKC) 1 APPLIC TOPICAL (21:09)
[2022-10-20 21:33] VITALS: BP 135/100; PULSE 76; RESP 19; TEMP 36.6; O2SAT 98
== END 2022-10-20 21:34 | disposition home or self-care (01) ==
PROVIDERS: Emergency Provider Emergency Medicine; PCP Internal Medicine
DX: S80.01XA Contusion of right knee, initial encounter (principal); M25.461 Effusion, right knee; I10 Essential (primary) hypertension; E03.9 Hypothyroidism, unspecified; I48.91 Unspecified atrial fibrillation; Z79.01 Long term (current) use of anticoagulants; Z96.653 Presence of artificial knee joint, bilateral; W19.XXXA Unspecified fall, initial encounter
CPT/HCPCS: 12001; 99282; A9270

== ENCOUNTER 2022-10-22 13:59 | Emergency (ER) | payer MEDICARE, BC, SELFPAY ==
--- NOTE | ~2022-10-22 | CT_ITS ---
EXAMINATION: CT brain wo con DATE: 10/22/2022 15:11 INDICATION: Postconcussion syndrome . TECHNIQUE: Computed tomography (CT) of the head was performed without intravenous contrast. The mA wa s adjusted according to patient size. Iterative reconstruction technique was employed. The dose-lengt h product was 605.33 mGy-cm. COMPARISON: 10/17/2022. FINDINGS: No acute intracranial hemorrhage or extra-axial fluid collection. No hydrocephalus, mass, or herniation. No acute ischemic infarct. Unremarkable dural venous sinus attenuation. No acute osseous abnormality. Minimal sphenoid mucosal thickening, the remaining aerated spaces are clear. Mild atrophy and chronic white matter change. Atherosclerotic intracranial calcification. Bilateral l ens replacements. IMPRESSION: No acute intracranial process. Reviewed, dictated and finalized at location K.
[2022-10-22 14:02] VITALS: BP 142/94; PULSE 81; RESP 18; TEMP 36.4; O2SAT 100
--- NOTE | 2022-10-22 14:39 | ED.EXTPRO ---
HPI - Extremity Problem General Chief complaint: Extremity Problem,Nontraumatic Stated complaint: knee infection Time Seen by Provider: 10/22/22 14:39 Source: patient History of Present Illness HPI Narrative: 82 years old white female lost her balance and fell at home without loss of consciousness 6 days ago, [facility], CT brain, x-ray right knee showed no acute abnormalities, patient was discharged with bruises of the right knee, Xarelto was stopped, scheduled to see Dr. Zavala in 3 days. Later patient developed some discharge from the bruises of the right knee, went back to [facility], and was discharged on Levaquin and doxycycline. Patient used to be a nurse, concerning about stopping Xarelto can trigger stroke and she believes that sometime have trouble to find words and think about stuff.. Currently she denies any fever, chills, nausea, vomiting, headache, focal neurodeficit. Patient is awake, alert and oriented x4, speaks very clearly and fast without delay. Related Data Home Medications Medication Instructions Recorded Confirmed alprazolam 0.5 mg tablet 0.5 mg PO TID PRN Anxiety 11/15/19 10/20/22 metoprolol tartrate 25 mg tablet 25 mg PO BID 02/24/21 10/20/22 spironolactone 25 mg tablet 25 mg PO QAM 04/11/21 10/20/22 digoxin 125 mcg (0.125 mg) tablet 125 mcg PO DAILY 06/22/21 10/20/22 cholecalciferol (vitamin D3) 25 25 mcg PO DAILY 10/20/21 10/20/22 mcg (1,000 unit) capsule levothyroxine 25 mcg capsule 25 mcg PO QAM 10/20/21 10/20/22 losartan 100 mg tablet 100 mg PO HS 10/20/21 10/20/22 magnesium 100 mg tablet 100 mg PO QID 10/20/21 10/20/22 verapamil 120 mg tablet 120 mg PO BID 09/05/22 10/20/22 duloxetine 20 mg capsule,delayed 20 mg PO HS 10/17/22 10/20/22 release rivaroxaban 20 mg tablet (Xarelto) 20 mg PO DAILY 10/17/22 10/20/22 Allergies Allergy/AdvReac Type Severity Reaction Status Date / Time ciprofloxacin Allergy Intermediate Confusion Verified 10/20/22 20:29 codeine Allergy Intermediate Unknown Verified 10/20/22 20:29 iohexol Allergy Intermediate Hives Verified 10/20/22 20:29 [From contrast - CT, X-RAY] Sulfa (Sulfonamide Allergy Intermediate Confusion Verified 10/20/22 20:29 Antibiotics) Review of Systems Review of Systems: All systems reviewed & are unremarkable except as noted in HPI and below PMFSH Past Medical History Medical History Adult hypothyroidism Aftercare following knee joint replacement surgery Atrial fibrillation External hemorrhoids ABEL (generalized anxiety disorder) GERD (gastroesophageal reflux disease) HTN (hypertension) (02/28/18) Hypomagnesemia (01/17/18) Rectal bleeding Sleep apnea SVT (supraventricular tachycardia) Surgical History Surgical History H/O hemorrhoidectomy 11/02/21 1. Internal and external hemorrhoidectomy x 1 column 2. Internal hemorrhoid rubber banding x 1 History of appendectomy History of hernia repair History of lumpectomy of left breast Hx laparoscopic cholecystectomy Hx of coronary artery disease Hx of joint replacement Hx of small bowel obstruction Family History Family History Father Family history of chronic obstructive pulmonary disease Family history of coronary artery disease Father Family history of coronary artery disease Family history of chronic obstructive pulmonary disease Mother Hypertension Mother Hypertension Father Family history of coronary artery disease Family history of chronic obstructive pulmonary disease Other Diabetes mellitus Family history of arthritis Family history of cardiovascular disease Family history of gout Social History Social History Smoking status: Never smoker Alcohol intake: never Substance use: never Substance use type: does not use Living arrange
== END 2022-10-22 16:40 | disposition home or self-care (01) ==
PROVIDERS: Emergency Provider Emergency Medicine; PCP Internal Medicine
DX: R47.9 Unspecified speech disturbances (principal); F07.81 Postconcussional syndrome; F41.9 Anxiety disorder, unspecified; E03.9 Hypothyroidism, unspecified; I48.91 Unspecified atrial fibrillation; Z79.01 Long term (current) use of anticoagulants; I25.10 Atherosclerotic heart disease of native coronary artery without angina pectoris; K21.9 Gastro-esophageal reflux disease without esophagitis; I10 Essential (primary) hypertension
CPT/HCPCS: 70450; 99284

== ENCOUNTER 2022-11-10 14:49 | Outpatient (RCR) | payer MEDICARE, SELFPAY ==
[2022-09-06 11:40] LABS: Magnesium 1.5 mg/dL (1.8-2.4)
[2022-11-10 15:23] LABS: Magnesium 1.6 mg/dL (1.8-2.4)
== END 2022-12-05 23:59 | disposition home or self-care (01) ==
LOC: CHSLAB 14:49
PROVIDERS: PCP Internal Medicine; Visit Provider Internal Medicine
DX: E83.42 Hypomagnesemia (principal)
CPT/HCPCS: 36415; 83735

== ENCOUNTER 2022-11-20 11:00 | Outpatient (CLI) | payer MEDICARE, SELFPAY ==
[2022-11-20 11:40] LABS: Digoxin 1.5 ng/mL (0.9-2.0)
== END 2022-11-20 11:01 | disposition home or self-care (01) ==
LOC: CHSLAB 11:02
PROVIDERS: PCP Internal Medicine; Visit Provider Anesthesiology
DX: I49.9 Cardiac arrhythmia, unspecified (principal)
CPT/HCPCS: 36415; 80162

== ENCOUNTER 2022-11-22 06:55 | Day surgery (SDC) | payer MEDICARE, BC, SELFPAY ==
--- NOTE | 2022-11-17 15:22 | PC.NURSE ---
Report to the Outpatient Waiting Room, entrance under the green pavilion located off [facility], at time ___1000____ on date ___11/22/22____. Planned Procedure Time: ___1200 . Time changes happen often and if your time is changed the preop area will call you the afternoon before. - You and your visitor will be asked to self-screen and do not enter if you have any COVID symptoms. - A mask is optional within the hospital at this time. Patients may have clear liquids (water, carbonated beverages, clear teas, apple juice) until 3 hours prior to surgery with a maximum of 20 ounces. - No food from midnight until time of surgery - Infants may have breast milk until 4 hours before surgery, infant formula 6 hours prior to surgery. - Children will be allowed to drink immediately following surgery. If applicable, please bring a bottle or sippy cup to assist with drinking. Juice, water, soda, and popsicles are readily available. For infants on formula, please bring formula the day of surgery. Pacifiers are allowed. Take the following medications with a SIP of water the morning of surgery: __DIGOXIN,LEVOTHYROXINE,METOPROLOL,VERAPAMIL DO NOT STOP ANY OF YOUR OTHER PRESCRIPTION MEDICATIONS PRIOR TO SURGERY ?EXCEPT THE FOLLOWING Medications to discontinue per physician ____PT STATES LAST DOSE XARELTO 11/15/[address] HAYES PER PT. ALL VITAMINS/SUPPLEMENTS 3 DAYS PRE OP. LAST DOSE 11/18/22 Please no make-up, nail japanese, hairspray, perfume, deodorant, or body powder the day of surgery. No jewelry (including any body piercings) or valuables the day of surgery, leave them at home. Please take a shower or bath the night before, or the morning of, surgery with an antibacterial soap. Wear comfortable, loose fitting clothing. Children are encouraged to wear pajamas. - Jewelry must be removed prior to entering the operating room. Rings and piercings that are not removed may be cut off. - The hospital will not accept responsibility for valuables. - Please leave all valuables, including medications, at home the day of surgery. If you are going home after surgery, a licensed intermodal owner operator truck driver must drive you home. - NO public transportation without another adult if you receive anesthesia. - We recommend that an adult stay with you for 24 hours following discharge. - We also recommend that you do not drive, make important decision, drink alcoholic beverages, or take any drugs that were not prescribed by your health care provider for at least 24 hours after your discharge time. For Pediatric surgeries, we recommend two adults accompany the child home. Follow any additional instructions given to you from your surgeon. If you or anyone in your household have experienced Covid symptoms in the past week, please notify your surgeon or the nurse liaison at the phone number below for possible testing. Telephone instructions given to __PATIENT and asked if any additional questions and then verbalized understanding. Patient advised to call surgeon office or pre surgery nurse liaison [phone] if any additional questions.
[2022-11-17 15:30] VITALS: BMI 27.7
--- NOTE | 2022-11-17 15:35 | PC.NURSE ---
PT STATES NO CHANGE IN HEALTH HX SINCE LAST INTERVIEW ON 11/07/22
[2022-11-22] VITALS (14 sets, daily range): BP systolic 133–163; BP diastolic 74–97; PULSE 41–79; RESP 10–20; TEMP 36.3–36.9; O2SAT 98–100
--- NOTE | 2022-11-22 07:21 | WPDHPUPDATE1 ---
History and Physical Update Update Date/Time: 11/22/22 07:21 History and Physical has been reviewed, including an updated exam of the patient. There are NO changes in the patient's condition. Risks, benefits, and alternatives have been discussed and questions answered. Patient agrees to proceed with procedure.
[2022-11-22] MEDS: CELECOXIB 200 MG CAPSULE PO (10:29)
[2022-11-22] MEDS: ACETAMINOPHEN 500 MG TABLET 1000 MG PO (10:29)
--- NOTE | 2022-11-22 11:13 | WPDANESEPPF ---
Anes - Initial Pre Proc Eval Procedure: Operation Date: 11/15/22 12:00 Proposed Procedures p Evacuation Hematoma Right Knee Prepatellar Bursa - Pramod Zavala MD Operation Date: 11/22/22 12:00 Proposed Procedures p Right Knee Incision and Drainage with Wound Vac Placement - Pramod Zavala MD Date/Time: 11/22/22 11:13 Surgeon: Pramod Zavala MD Pre Op Diagnosis: R Knee hematoma and Presence of artficial joint Patient Data Age: 82 Gender: F Height: 1.7 m Weight: 81 kg Last Vital Signs Temp 97.4 F L 11/22/22 10:03 Pulse 41 L 11/22/22 10:03 Resp 16 11/22/22 10:03 BP 148/81 H 11/22/22 10:03 Pulse Ox 99 11/22/22 10:03 O2 Del Method Room Air 11/22/22 10:03 Allergies Allergy/AdvReac Type Severity Reaction Status Date / Time ciprofloxacin Allergy Intermediate Confusion Verified 11/22/22 10:22 codeine Allergy Intermediate Unknown Verified 11/22/22 10:22 iohexol Allergy Intermediate Hives Verified 11/22/22 10:22 [From contrast - CT, X-RAY] Sulfa (Sulfonamide Allergy Intermediate Confusion Verified 11/22/22 10:22 Antibiotics) Home Medications Medication Instructions Recorded Confirmed Type alprazolam 0.5 mg tablet 0.5 mg PO TID PRN Anxiety 11/15/19 11/22/22 History dicyclomine 10 mg capsule 10 mg PO QID PRN IBS #180 caps 12/27/20 11/22/22 Rx metoprolol tartrate 25 mg tablet 25 mg PO BID 02/24/21 11/22/22 History spironolactone 25 mg tablet 25 mg PO QAM 04/11/21 11/22/22 History digoxin 125 mcg (0.125 mg) tablet 125 mcg PO DAILY 06/22/21 11/22/22 History cholecalciferol (vitamin D3) 25 25 mcg PO DAILY 10/20/21 11/22/22 History mcg (1,000 unit) capsule levothyroxine 25 mcg capsule 25 mcg PO QAM 10/20/21 11/22/22 History losartan 100 mg tablet 100 mg PO HS 10/20/21 11/22/22 History magnesium 100 mg tablet 100 mg PO QID 10/20/21 11/22/22 History verapamil 120 mg tablet 120 mg PO BID 09/05/22 11/22/22 History duloxetine 20 mg capsule,delayed 20 mg PO HS 10/17/22 11/22/22 History release rivaroxaban 20 mg tablet (Xarelto) 20 mg PO DAILY 10/17/22 11/22/22 History tramadol 50 mg tablet 50 mg PO Q6H PRN pain #10 tabs 10/17/22 11/17/22 Rx Patient hx anesthesia problems: none Family hx anesthesia problems: none Results Review: All pre-operative results and documents have been reviewed as part of the pre-operative evaluation. [facility] Past Medical History Medical History Adult hypothyroidism Aftercare following knee joint replacement surgery Atrial fibrillation External hemorrhoids ABEL (generalized anxiety disorder) GERD (gastroesophageal reflux disease) HTN (hypertension) (02/28/18) Hypomagnesemia (01/17/18) Leg swelling Rectal bleeding Right calf pain Sleep apnea SVT (supraventricular tachycardia) Surgical History Surgical History H/O hemorrhoidectomy 11/02/21 1. Internal and external hemorrhoidectomy x 1 column 2. Internal hemorrhoid rubber banding x 1 History of appendectomy History of hernia repair History of lumpectomy of left breast History of total right knee replacement Hx laparoscopic cholecystectomy Hx of coronary artery disease Hx of joint replacement Hx of small bowel obstruction Family History Family History Father Family history of chronic obstructive pulmonary disease Family history of coronary artery disease Father Family history of coronary artery disease Family history of chronic obstructive pulmonary disease Mother Hypertension Mother Hypertension Father Family history of coronary artery disease Family history of chronic obstructive pulmonary disease Other Diabetes mellitus Family history of arthritis Family history of cardiovascular disease Family history of gout Social History Social History Deanna
[2022-11-22] MEDS: ceFAZolin 2 GM/D5W 50 ML 2 GM/50 ML BAG IVPB ×2 (11:49→20:07)
[2022-11-22] MEDS: LACTATED RINGERS 1,000 ML 30 ML IV CONT (11:56)
--- NOTE | 2022-11-22 13:32 | SUR.PHASEI ---
1330: Simple mask removed.
--- NOTE | 2022-11-22 13:46 | P.OP_ITS ---
Procedure Note - Detailed Date of Procedure 11/22/22 Pre-op Diagnosis R Knee hematoma and Presence of artficial joint Post-op Diagnosis Same Procedure Performed IRRIGATION AND DEBRIDEMENT WITH EVACUATION OF HEMATOMA AND PLACEMENT OF WOUND VAC RIGHT KNEE Surgeon Pramod Zavala MD Anesthesia General Indications FALL ONTO RIGHT KNEE AND HEMATOMA FORMATION WITH SKIN NECROSIS Findings LARGE EXTRA FASCIAL HEMATOMA WITH SKIN NECROSIS. WOUND MEASURING 8 X 6 X 5 CM D EPTH, GRANULATING PINK TISSUE AT THE WOUND SURFACE Description of Procedure THE PATIENT WAS TAKEN TO THE OPERATING ROOM. THE RIGHT LOWER EXTREMITY WAS PREPPED AND DRAPED IN THE STERILE FASHION. THE HEMATOMA AND NECROTIC SKIN WERE REMOVED WITH A SCALPEL. DEBRIDEMENT OF THE SURROUNDING SOFT TISSUES WAS PREFORMED. THE HEMATOMA DID NOT VIOLATE THE KNEE JOINT. THE EXCISIONAL DEBRIDEMENT WHICH CONTINUED DOWN TO FASCIA WAS PREFORMED UNTIL SURROUNDING TISSUES WERE BLEEDING WELL WITH HEALTHY TISSUE. NEXT THE WOUND WAS IRRIGATED WITH STERILE SALINE SOLUTION. THE WOUND MEASURED 8 X 6 X 5 CM DEPTH. A WOUND VAC WAS THEN PLACED. IT COLLAPSED WELL INSIDE THE WOUND BED. STERILE DRESSING WAS APPLIED. THE PATIENT WAS EXTUBATED. Estimated Blood Loss 30 Packing Yes Complications No immediate complications Disposition PACU
--- NOTE | 2022-11-22 14:38 | ADMGEN ---
This patient, Peyton Gomez, was admitted to 2 Medical Room 255-01. Patient/family oriented to hospital policies and general routines including ID bracelet, bed and alarms, visiting hours, pain management, procedures, bathroom and other care routines, personal items, smoking policy, room service/diet, and visiting hours. Information on how to activate the Rapid Response Team has been discussed. Patient/Family are encouraged to report perceived risks to care and to ask questions if they do not understand what they are told or what they should do.
--- NOTE | 2022-11-22 16:31 | WPDCN ---
Assessment and Plan Assessment and plan (1) Hematoma of right knee region: Code(s): S80.01XA - Contusion of right knee, initial encounter Status: Acute Assessment and Plan: Status post irrigation debridement with evacuation of hematoma with placement of wound VAC. Wound care, pain control, and DVT prophylaxis deferred to Dr. Zavala. (2) Hypertension: Code(s): I10 - Essential (primary) hypertension Status: Acute Assessment and Plan: Blood pressures were reviewed and they have been running a bit high postoperatively. Continue antihypertensives and monitor. (3) Hypothyroidism: Code(s): E03.9 - Hypothyroidism, unspecified Status: Acute Assessment and Plan: Continue levothyroxine. (4) Atrial fibrillation: Code(s): I48.91 - Unspecified atrial fibrillation Status: Acute Assessment and Plan: She is rate controlled. Continue metoprolol and digoxin. check digoxin level in a.m.. Xarelto on hold for now. Plan Thank you for allowing us to participate in this patient's care. Please do not hesitate to contact us with any questions. HPI Data of Consult Date/Time: 11/22/22 15:45 Requesting Physician: Pramod Zavala MD Consult Narrative Reason for consult: Medical management. Narrative: This is a very pleasant 82-year-old female with paroxysmal atrial fibrillation on anticoagulation, hypertension, and hypothyroidism whom the hospitalist service has been consulted for help managing her medical conditions postoperatively. She had a fall last month and landed on her right knee which developed marked swelling and bruising. She was eventually referred to the wound clinic for necrotic cap covering the wound and she continues to have bloody discharge from the area (she is on Eliquis but that has been on hold since last Sunday). She presented today for irrigation and debridement with evacuation of hematoma per Dr. Zavala. Her surgery surgery was performed under general anesthesia with no immediate complications documented an estimated blood loss of 30 mL. Postoperatively she has minimal discomfort and is doing quite well. She is not having any significant pain. She denies fever, chills, sweats, chest pain, shortness a breath, nausea, and vomiting. Review of Systems Review of Systems: Twelve systems were reviewed and are negative except for as per HPI. [facility] Past Medical History Medical History (Updated 11/22/22 @ 16:41 by Radha Huang PA-C) Atrial fibrillation Diverticulosis External hemorrhoids Generalized anxiety disorder Hypertension Hypothyroidism Sleep apnea Supraventricular tachycardia Surgical History Surgical History (Updated 11/22/22 @ 16:41 by Radha Huang PA-C) History of appendectomy History of cardiac catheterization History of cataract extraction with lens replacement History of colonoscopy with polypectomy History of coronary artery stent placement (2010) History of hemorrhoidectomy (10/2021) 1. Internal and external hemorrhoidectomy x 1. 2. Internal hemorrhoid rubber banding x 1. History of hernia repair History of laparoscopic cholecystectomy History of left knee replacement (09/2016) History of loop recorder History of lumpectomy of left breast History of resection of small bowel (2009) For small-bowel obstruction related to strangulated hernia. History of total right knee replacement (05/2016) Family History Family History Father Family history of chronic obstructive pulmonary disease Family history of coronary artery disease Father Family history of coronary artery disease Family history of chronic obstructive pulmonary disease Mother Hypertension Mother Hypertension Father Family history of coronary artery disease Family history of chronic obstructive pulmonary disease Other Diabetes mellitus Family history of arthriti
[2022-11-22] MEDS: LOSARTAN POTASSIUM 100 MG TABLET PO (20:05)
[2022-11-22] MEDS: DULoxetine HCL 20 MG CAPSULE.DR PO (20:06)
[2022-11-22] MEDS: VERAPAMIL HCL ER 120 MG TABLET PO (20:06)
[2022-11-22] MEDS: FAMOTIDINE 20 MG TABLET PO (20:06)
[2022-11-22] MEDS: METOPROLOL TARTRATE 12.5 MG TABLET PO (20:06)
[2022-11-22] MEDS: METOPROLOL TARTRATE 25 MG TABLET PO (20:06)
[2022-11-22] MEDS: ASPIRIN 325 MG ENTERIC TABLET PO (20:07)
[2022-11-22] MEDS: ALPRAZolam (*CRX) 0.5 MG TABLET PO (23:06)
[2022-11-23] VITALS (9 sets, daily range): BP systolic 120–136; BP diastolic 72–79; PULSE 63–88; RESP 18; TEMP 36.7–37; O2SAT 98–100
[2022-11-23] MEDS: ceFAZolin 2 GM/D5W 50 ML 2 GM/50 ML BAG IVPB ×2 (03:34→13:30)
[2022-11-23] MEDS: HYDROcodone/acetaminophen (*CRX) 5-325 MG TABLET 1 TAB PO (03:38)
[2022-11-23 06:06] LABS: Basophils Absolute Auto 0.1 K/mm3 (0.0-0.1); Eosinophils Absolute Auto 0.2 K/mm3 (0-0.3); Eosinophils Percent Auto 2.8 % (0-4.4); Hematocrit 42.6 % (37.0-47.0); Hemoglobin 14.3 g/dL (12.0-15.0); Immature Granulocyte Absolute 0.01 K/mm3 (0.00-0.031); Immature Granulocyte Percent A 0.1 % (0-0.5); Lymphocytes Absolute Auto 1.52 K/mm3 (0.9-3.2); Lymphocytes Percent Auto 21.3 % (18.3-44.2); Mean Corpuscular HGB Conc 33.6 g/dl (32-36); Mean Corpuscular Volume 104.4 fl (80-100); Mean Platelet Volume 9.3 fl (7.4-10.4); Monocytes Absolute Auto 0.7 K/mm3 (0.1-0.6); Monocytes Percent Auto 9.7 % (2.6-8.5); Neutrophils Absolute Auto 4.7 K/mm3 (1.3-6.7); Neutrophils Percent Auto 65.1 % (45.5-73.1); Platelet Count Result 203 k/mm3 (150-375); Red Blood Count 4.08 M/mm3 (4.2-5.4); White Blood Count 7.2 K/mm3 (4.5-10.0)
[2022-11-23 06:19] LABS: Anion Gap 4 mmol/L (8-16); Blood Urea Nitrogen 21 mg/dL (7-17); Calcium 9.5 mg/dL (8.4-10.2); Carbon Dioxide 30 mmol/L (22-30); Chloride 101 mmol/L (98-107); Estimated CRCL calculation 53 ml/min; Estimated Glomerular Filt Rate > 60; Glucose 89 mg/dL (65-110); Magnesium 1.5 mg/dL (1.6-2.3); Potassium 4.4 mmol/L (3.4-5.0); Sodium 135 mmol/L (137-145)
[2022-11-23 06:24] LABS: Digoxin 0.6 ng/mL (0.8-2.0)
[2022-11-23] MEDS: LEVOTHYROXINE SODIUM 25 MCG TABLET PO (06:25)
[2022-11-23] MEDS: SENNA/DOCUSATE SODIUM TABLET 2 TAB PO (08:51)
[2022-11-23] MEDS: VERAPAMIL HCL ER 120 MG TABLET PO (08:51)
[2022-11-23] MEDS: ASPIRIN 325 MG ENTERIC TABLET PO (08:52)
[2022-11-23] MEDS: FAMOTIDINE 20 MG TABLET PO (08:52)
[2022-11-23] MEDS: METOPROLOL TARTRATE 25 MG TABLET PO (08:52)
[2022-11-23] MEDS: SPIRONOLACTONE 25 MG TABLET PO (08:52)
[2022-11-23] MEDS: MAGNESIUM SULFATE 3GM/D5W100ML 3 GM/100 ML BAG IVPB (09:02)
[2022-11-23] MEDS: polyethylene glycoL 3350 17 GM POWD.PACK PO (09:02)
[2022-11-23] MEDS: CHOLECALCIFEROL 1,000 UNITS TABLET 1000 UNITS PO (09:03)
--- NOTE | 2022-11-23 09:14 | WPDANESPN ---
Anes - Prog Note Post-Op Date/Time: 11/23/22 09:14 Cardiovascular status: normal Respiratory status: normal Airway patency: baseline Mental status: baseline Post-Op hydration status: normal Vital Signs: Last Vital Signs Temp 37.0 C 11/23/22 07:56 Pulse 68 11/23/22 08:52 Resp 18 11/23/22 07:56 BP 136/78 11/23/22 07:56 Pulse Ox 100 11/23/22 07:56 O2 Del Method Room Air 11/23/22 08:18 O2 Flow Rate 6 11/22/22 13:20 Pain Score (VAS): 0 I/O: Intake & Output 11/22/22 11/23/22 11/23/22 23:59 07:59 15:59 Intake Total 600 150 Balance 600 150 Laboratory Tests 11/23/22 05:56 11/23/22 05:56 11/23/22 05:56 WBC 7.2 RBC 4.08 L Hgb 14.3 Hct 42.6 MCV 104.4 H MCH 35.0 H MCHC 33.6 RDW 13.0 Plt Count 203 MPV 9.3 Immature Gran % (Auto) 0.1 Neut % (Auto) 65.1 Lymph % (Auto) 21.3 Lipscomb % (Auto) 9.7 H Eos % (Auto) 2.8 Baso % (Auto) 1.0 Lymph # (Auto) 1.52 Lipscomb # (Auto) 0.7 H Eos # (Auto) 0.2 Baso # (Auto) 0.1 Abs Immat Gran (auto) 0.01 Absolute Neuts (auto) 4.7 Absolute Nucleated RBC 0.0 Nucleated RBC % 0.0 Sodium 135 L Potassium 4.4 Chloride 101 Carbon Dioxide 30 Anion Gap 4 L BUN 21 H Creatinine 0.80 Estim Creat Clear Calc 53 Estimated GFR > 60 Glucose 89 Calcium 9.5 Magnesium 1.5 L TSH (Reflex) 3.250 Digoxin 0.6 L Post-procedural complaints: none Patient Feedback: Patient satisfied with anesthetic care.
--- NOTE | 2022-11-23 09:26 | PM.PNORT ---
Progress Note: A&P Assessment and Plan (1) Hematoma of right knee region: Code(s): S80.01XA - Contusion of right knee, initial encounter Status: Acute Assessment and Plan: POD #1: IRRIGATION AND DEBRIDEMENT WITH EVACUATION OF HEMATOMA AND PLACEMENT OF WOUND VAC RIGHT KNEE PT/OT. WBAT. Continue pain control. SCDs. Incentive Spirometry Use reviewed. Monitor wound VAC output. Wound VAC dressing to be transitioned to home VAC pending authorization. Will await change until discharge if within the next [address] Zavala signed paperwork for home VAC via [employer] this morning. Bowel Regimen. Dispo: Home with Home Health for wound VAC management Patient will follow up in the outpatient orthopedic clinic at discharge. (2) History of total right knee replacement: Onset Date: 05/2016 Code(s): Z96.651 - Presence of right artificial knee joint Status: Acute Plan Reviewed postoperative exam, discharge planning, wound VAC care and labs with attending MD and patient's surgeon, Dr. Zavala. Agrees with current plan as indicated above. No further recommendations at this time. Subjective Subjective Date/Time Seen: 11/23/22 09:26 Post Op day: 1 Principal diagnosis: Right Knee Prepatellar Hematoma Interval history: POD #1: IRRIGATION AND DEBRIDEMENT WITH EVACUATION OF HEMATOMA AND PLACEMENT OF WOUND VAC RIGHT KNEE Patient doing well. Did not sleep overnight. Pain well controlled. Anxious to be discharged home. Review of Systems Review of Systems: All systems reviewed & are unremarkable except as noted in HPI and below Exam Const: General: comfortable and no acute distress Resp: Effort & Inspection: normal respiratory effort Cardio: Rate: regular rate Rhythm: regular rhythm GI: GI Palp: Yes Soft to palpation, No Tenderness to palpation present (GI) and No Guarding due to palpation present (GI) Skin: Wounds: wounds noted (Anterior knee with wound VAC in place ) Neuro: General: gait normal Speech: normal speech Sensory Exam: normal sensation Extrem: Right lower extremity: knee Details: normal ROM, abrasion and ecchymosis; no lacerations and no unusual warmth, lower leg Details: normal to inspection; no tenderness, ankle Details: normal to inspection and no edema; no tenderness and no swelling and foot Details: normal capillary refill, toes with normal ROM and vascular exam Details: dorsalis pedis pulse present; no tenderness Other: Wound on the anterior aspect of the knee with wound VAC in place. Sanguinous drainage in wound VAC chamber, approximately 10mL. Surrounding tissue with ecchymosis which was unchanged from preoperative exam. No signs of infection. Objective Data Vital Signs Vital Signs: Vital Signs - 24 hr 11/22/22 10:03 11/22/22 13:06 11/22/22 13:20 Temperature 36.3 C L 36.4 C L Pulse Rate 41 L 74 74 Respiratory Rate 16 10 L 13 Blood Pressure 148/81 H 136/94 H 149/93 H Pulse Oximetry 99 100 100 Oxygen Delivery Room Air Simple Face Mask Simple Face Mask Oxygen Flow Rate 6 6 11/22/22 13:35 11/22/22 13:50 11/22/22 14:00 Temperature 36.5 C 36.4 C Pulse Rate 61 60 63 Respiratory Rate 19 15 14 Blood Pressure 134/74 138/80 133/77 Pulse Oximetry 100 100 99 Oxygen Delivery Room Air Room Air Room Air Oxygen Flow Rate 11/22/22 14:35 11/22/22 14:55 11/22/22 16:00 Temperature 36.6 C 36.3 C L Pulse Rate 67 75 58 L Respiratory Rate 18 20 Blood Pressure 162/87 H 145/87 H Pulse Oximetry 100 100 Oxygen Delivery Oxygen Flow Rate 11/22/22 15:56 11/22/22 20:06 11/22/22 20:06 Temperature 36.6 C Pulse Rate 68 75 75 Respiratory Rate 18 Blood Pressure 144/77 H Pulse Oximetry 100 Oxygen Delivery Oxygen Flow Rate 11/22/22 19:56 11/22/22 20:00 11/22/22 20:00 Temperature 36.9 C Pulse Rate 75 79 Respiratory Rate 17 Blood Pressure 160/97 H Pulse Oximetry 99 Oxygen Delivery Room Air Oxygen Flow Rate 11/22/22 23:
[2022-11-23] MEDS: DIGOXIN TAB 125 MCG TABLET PO (09:49)
--- NOTE | 2022-11-23 09:55 | PHAR ---
HOME MEDICATION MAGNESIUM 105MG CAPSULES UNMARKED WHITE CAPSULES - CANNOT BE IDENTIFIED
--- NOTE | 2022-11-23 12:20 | PM.IMPN ---
Progress Note: A&P Assessment and Plan (1) Hematoma of right knee region: Code(s): S80.01XA - Contusion of right knee, initial encounter Status: Acute Assessment and Plan: Status post irrigation debridement with evacuation of hematoma with placement of wound VAC. Wound care, pain control, and DVT prophylaxis deferred to Dr. Zavala. (2) Hypertension: Code(s): I10 - Essential (primary) hypertension Status: Acute Assessment and Plan: Blood pressures were reviewed and they have been running a bit high postoperatively. Continue antihypertensives and monitor. (3) Hypothyroidism: Code(s): E03.9 - Hypothyroidism, unspecified Status: Acute Assessment and Plan: Continue levothyroxine. (4) Atrial fibrillation: Code(s): I48.91 - Unspecified atrial fibrillation Status: Acute Assessment and Plan: She is rate controlled. Continue metoprolol and digoxin. Digoxin level 0.6 Xarelto on hold for now, Restart per Orthopedics recommendations. Plan Thank you for allowing us to participate in this patient's care. Please do not hesitate to contact us with any questions. Subjective Date/time seen: 11/23/22 12:20 Interval history: Doing well today working with therapy. Patient should be able to be discharged after she is able to obtain a wound VAC for her problems. Patient is medically stable and okay to discharge from hospitalist standpoint. Review of Systems Review of Systems: All systems reviewed & are unremarkable except as noted in HPI and below Exam Narrative: GENERAL: Comfortable, no acute distress HENMT: moist mucous membranes EYES: EOM intact b/l NECK: no lymphadenopathy RESPIRATORY: clear to auscultation CARDIO: RRR GI: soft, nontender, bowel sounds present SKIN: no rashes EXTREMITIES: Right knee mildly swollen with Hesham bandage and wound VAC in place. Objective Data Vital Signs Vital Signs: Vital Signs - 24 hr 11/22/22 13:06 11/22/22 13:20 11/22/22 13:35 Temperature 97.5 F L 97.7 F Pulse Rate 74 74 61 Respiratory Rate 10 L 13 19 Blood Pressure 136/94 H 149/93 H 134/74 Pulse Oximetry 100 100 100 Oxygen Delivery Simple Face Mask Simple Face Mask Room Air Oxygen Flow Rate 6 6 11/22/22 13:50 11/22/22 14:00 11/22/22 14:35 Temperature 97.6 F 97.8 F Pulse Rate 60 63 67 Respiratory Rate 15 14 18 Blood Pressure 138/80 133/77 162/87 H Pulse Oximetry 100 99 100 Oxygen Delivery Room Air Room Air Oxygen Flow Rate 11/22/22 14:55 11/22/22 16:00 11/22/22 15:56 Temperature 97.4 F L 97.9 F Pulse Rate 75 58 L 68 Respiratory Rate 20 18 Blood Pressure 145/87 H 144/77 H Pulse Oximetry 100 100 Oxygen Delivery Oxygen Flow Rate 11/22/22 20:06 11/22/22 20:06 11/22/22 19:56 Temperature 98.5 F Pulse Rate 75 75 75 Respiratory Rate 17 Blood Pressure 160/97 H Pulse Oximetry 99 Oxygen Delivery Oxygen Flow Rate 11/22/22 20:00 11/22/22 20:00 11/22/22 23:18 Temperature 97.7 F Pulse Rate 79 69 Respiratory Rate 17 Blood Pressure 163/94 H Pulse Oximetry 98 Oxygen Delivery Room Air Oxygen Flow Rate 11/23/22 00:00 11/23/22 03:56 11/23/22 04:00 Temperature 98.6 F Pulse Rate 72 64 65 Respiratory Rate 18 Blood Pressure 136/79 Pulse Oximetry 98 Oxygen Delivery Oxygen Flow Rate 11/23/22 07:56 11/23/22 08:18 11/23/22 08:32 Temperature 98.6 F Pulse Rate 88 Respiratory Rate 18 Blood Pressure 136/78 Pulse Oximetry 100 Oxygen Delivery Room Air Room Air Oxygen Flow Rate 11/23/22 08:52 11/23/22 09:49 11/23/22 08:52 Temperature Pulse Rate 68 71 Respiratory Rate Blood Pressure Pulse Oximetry Oxygen Delivery Room Air Oxygen Flow Rate Intake/Output Intake/Output: Intake & Output 11/20/22 11/21/22 11/22/22 11/23/22 23:59 23:59 23:59 23:59 Intake Total 900 390 Balance 900 390 Meds/Res
--- NOTE | 2022-11-23 14:12 | PM.DS ---
DS: Admitting Diagnosis Discharge Date 11/23/2022 Admitting Diagnosis Right Anterior Knee Hematoma with wound s/p fall DS: Discharge Diagnosis Discharge Diagnosis (1) Hematoma of right knee region: Code(s): S80.01XA - Contusion of right knee, initial encounter Status: Acute Assessment and Plan: POD #1: IRRIGATION AND DEBRIDEMENT WITH EVACUATION OF HEMATOMA AND PLACEMENT OF WOUND VAC RIGHT KNEE PT/OT. WBAT. Continue pain control. SCDs. Incentive Spirometry Use reviewed. Monitor wound VAC output. Wound VAC dressing to be transitioned to home VAC pending authorization. Will await change until discharge if within the next [address] Zavala signed paperwork for home VAC via [employer] this morning. Bowel Regimen. Dispo: Home with Home Health for wound VAC management Patient will follow up in the outpatient orthopedic clinic at discharge. (2) History of total right knee replacement: Onset Date: 05/2016 Code(s): Z96.651 - Presence of right artificial knee joint Status: Acute Plan Right Knee Wound s/p I&D and hematoma evacuation DS: Summary Hospital Course Reason for hospitalization: POD #1: IRRIGATION AND DEBRIDEMENT WITH EVACUATION OF HEMATOMA AND PLACEMENT OF WOUND VAC RIGHT KNEE Hospital Course: 82 year old female admitted s/p I&D right anterior knee with evacuation of hematoma and wound VAC placement for postoperative medical management, pain control and wound care. Patient did have an episode of afib postoperatively. Medicine team consulted during hospitalization. Dr. Zavala did hold her Xarelto due to bleeding concerns with wound VAC in place. She is now rate controlled. She has been cleared by the medicine team for discharge. She will hold Xarelto x2 weeks on request of Dr. Zavala. We have started her on 650mg PO Aspirin daily. She will also be discharge home with a wound VAC. This will be changed three times weekly with the help of home health. She will folllow up in the outpatient wound clinic for orthopedic evaluation in 1 week. Encouraged patient to discuss Xarelto hold with PCP as well. We plan to resume Xarelto in 2 weeks if wound VAC is assisting with closure of wound. Status at Discharge Functional status at discharge: uses cane/walker Overall status at discharge: patient is progressing back to baseline Time Spent with Patient Time attestation: Total time spent providing and/or coordinating discharge services: Exam Const: General: comfortable and no acute distress Resp: Effort & Inspection: normal respiratory effort Cardio: Rate: regular rate Rhythm: regular rhythm Skin: General skin exam: wounds noted (Anterior knee with wound VAC in place ) Wounds: wounds noted (Anterior knee with wound VAC in place ) Neuro: General: gait normal Speech: normal speech Sensory Exam: normal sensation Extrem: Right lower extremity: knee Details: normal ROM, abrasion and ecchymosis; no lacerations and no unusual warmth, lower leg Details: normal to inspection; no tenderness, ankle Details: normal to inspection and no edema; no tenderness and no swelling and foot Details: normal capillary refill, toes with normal ROM and vascular exam Details: dorsalis pedis pulse present; no tenderness Other: Wound on the anterior aspect of the knee with wound VAC in place. Sanguinous drainage in wound VAC chamber, approximately 10mL. Surrounding tissue with ecchymosis which was unchanged from preoperative exam. No signs of infection. DS: Data Data Completed and Pending Labs on day of discharge: Labs from last 24 hours 11/23/22 05:56 WBC 7.2 RBC 4.08 L Hgb 14.3 Hct 42.6 MCV 104.4 H MCH 35.0 H MCHC 33.6 RDW 13.0 Plt Count 203 MPV 9.3 Immature Gran % (Auto) 0.1 Neut % (Auto) 65.1 Lymph % (Auto) 21.3 [place] % (Auto) 9.7 H Eos % (Auto) 2.8 Baso % (Auto) 1.0 Lymph # (Auto) 1.52 [place] # (Auto) 0.7 H Eos # (Auto) 0.2 Baso # (Auto) 0.1 Abs Immat Gran (auto) 0.01 Absolut
== END 2022-11-23 15:30 | disposition home health service (06) ==
LOC: ANHSURGERY 09:45 → ANH2MED 14:12
PROVIDERS: Physician Assistant; PCP Internal Medicine; Visit Provider Orthopaedic Surgery
PROC: (CPT 11042; principal; 2022-11-22 12:00)
DX: S80.01XA Contusion of right knee, initial encounter (principal); W19.XXXA Unspecified fall, initial encounter; Z96.651 Presence of right artificial knee joint; I10 Essential (primary) hypertension; E03.9 Hypothyroidism, unspecified; I48.0 Paroxysmal atrial fibrillation; Z79.01 Long term (current) use of anticoagulants; F41.1 Generalized anxiety disorder; G47.30 Sleep apnea, unspecified; I47.1 Supraventricular tachycardia
CPT/HCPCS: 11042; 11045 ×2; 36415; 80048; 80162; 83735; 84443; 85025; 97161; 97165; A9270; J0690; J2370; J2704; J3010; J3475; J7120

== ENCOUNTER 2023-01-10 13:11 | Outpatient (RCR) | payer MEDICARE, BC, SELFPAY ==
--- NOTE | 2023-01-10 14:45 | OPREHPOC ---
Outpatient Therapy Plan of Care This is a Multidisciplinary Plan of Care that may contain components documented by all disciplines (PT, OT, and ST.) PT Problem 1 PT Problem #1 Knowledge Deficit PT Goal 1 Goal The patient will demonstrate independence in a home exercise program for core and LE strength to continue after discharge from formal PT. Target Visit 10 PT Problem 2 PT Problem #2 Impaired Balance PT Goal 1 Goal The patient will demonstrate a Tinetti Balance Score of 24/28 to indicate less fall risk. Target Visit 10 PT Problem 3 PT Problem #3 Impaired Gait PT Goal 1 Goal The patient will ambulate 1,200 feet independently with the least restrictive assistive device during the 6 min walk test to improve community ambulation. Target Visit 10 PT Problem 4 PT Problem #4 Impaired Strength PT Goal 1 Goal The patient will demonstrate bilateral hip flexion , hip abduction, knee flexion, and knee extension strength to 4/5 to provide support for gait and dynamic balance. Target Visit 10
--- NOTE | 2023-01-10 14:45 | PTOPEVAL1 ---
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 She states she fell to both knees and hit her head on the shower. She went to [facility] and a CT scan was performed on her head which was clear. She then had trouble talking on Sunday and she went to [place] [facility] where another CT scan was performed that also came back clear. She was diagnosed with post concussion syndrome. She has not had any trouble talking since then. She had a hematoma develop on her right knee following the fall and she had to have surgery to have it removed. She reports Dr. Moreland said her previous right knee replacement is intact. Following the hematoma removal surgery, she has been seeing the wound clinic since and her wound is getting better. She was referred to PT by her PCP for balance and LE strength. She has been using a cane too since the fall and she feels a little unsteady with her cane. Reported Pain Level Pain Score 0: Self Report Assessment PT Clinical Summary Peyton Gomez presents s/p fall on 10/16/22 that led to a hematoma removal from the right knee. She was also diagnosed with post concussion syndrome. She has difficulty with balance and walking. She objectively demonstrates impaired gait with poor assistive device gait mechanics, decreased dynamic balance, and decreased LE strength. She is a high fall risk per standardized balance screens. She will benefit from skilled PT to address these limitations. Plan of Care Interventions Gait Training,Manual Therapy,Neuro Re-education, Patient/Caregiver Educati,Therapeutic Activities, Therapeutic Exercise PT Services Indicated Yes Treatment Frequency and 2 times a week for 10 visits Duration These treatments will address the objective and functional deficits as defined above. The patient will be advanced safely and appropriately in order for the patient to progress towards his/her prior level of function. Additional exercises will be introduced and as well as a comprehensive home exercise program upon discharge, if needed, ?to ensure carryover of functional gains achieved in the clinic. This treatment plan has been reviewed and agreement upon by the patient.
--- NOTE | 2023-02-08 10:55 | PTOPREEVAL ---
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 Patient reports she feels that her balance and gait has improved since her intitial physical therapy visit. Reported Pain Level Pain Score 0: Self Report Assessment PT Clinical Summary Mrs. Gomez showed improvements in LE strength, balance, and gait since previous assessment, however she continues to show impairments in these measures. Per the [facility], patient is a fall risk and could benefit from continued skilled therapy to address this concern. Appropriate to continue skilled physical therapy decreasing treatment frequency to 1x/week in order to continue progressing toward patient goals. Plan of Care Interventions Gait Training,Manual Therapy,Neuro Re-education, Patient/Caregiver Educati,Therapeutic Activities, Therapeutic Exercise PT Services Indicated Yes Treatment Frequency and 1x/week for 6 visits Duration These treatments will address the objective and functional deficits as defined above. The patient will be advanced safely and appropriately in order for the patient to progress towards his/her prior level of function. Additional exercises will be introduced and as well as a comprehensive home exercise program upon discharge, if needed, ?to ensure carryover of functional gains achieved in the clinic. This treatment plan has been reviewed and agreement upon by the patient.
--- NOTE | 2023-02-08 10:56 | OPREHPOC ---
Outpatient Therapy Plan of Care This is a Multidisciplinary Plan of Care that may contain components documented by all disciplines (PT, OT, and ST.) PT Problem 1 PT Problem #1 Knowledge Deficit PT Goal 1 Goal The patient will demonstrate independence in a home exercise program for core and LE strength to continue after discharge from formal PT. Target Visit 10 Progress Partially Met PT Problem 2 PT Problem #2 Impaired Balance PT Goal 1 Goal The patient will demonstrate a Tinetti Balance Score of 24/28 to indicate less fall risk. Target Visit 10 Progress Not Met PT Problem 3 PT Problem #3 Impaired Gait PT Goal 1 Goal The patient will ambulate 1,200 feet independently with the least restrictive assistive device during the 6 min walk test to improve community ambulation. Target Visit 10 Progress Partially Met PT Problem 4 PT Problem #4 Impaired Strength PT Goal 1 Goal The patient will demonstrate bilateral hip flexion , hip abduction, knee flexion, and knee extension strength to 4/5 to provide support for gait and dynamic balance. Target Visit 10 Progress Met
--- NOTE | 2023-03-28 14:35 | OPREHPOC ---
Outpatient Therapy Plan of Care This is a Multidisciplinary Plan of Care that may contain components documented by all disciplines (PT, OT, and ST.) PT Problem 1 PT Problem #1 Knowledge Deficit PT Goal 1 Goal The patient will demonstrate independence in a home exercise program for core and LE strength to continue after discharge from formal PT. Target Visit 10 Progress Met PT Problem 2 PT Problem #2 Impaired Balance PT Goal 1 Goal The patient will demonstrate a Tinetti Balance Score of 24/28 to indicate less fall risk. Target Visit 10 Progress Partially Met Comment score improved to 22 PT Problem 3 PT Problem #3 Impaired Gait PT Goal 1 Goal The patient will ambulate 1,200 feet independently with the least restrictive assistive device during the 6 min walk test to improve community ambulation. Target Visit 10 Progress Partially Met PT Problem 4 PT Problem #4 Impaired Strength PT Goal 1 Goal The patient will demonstrate bilateral hip flexion , hip abduction, knee flexion, and knee extension strength to 4/5 to provide support for gait and dynamic balance. Target Visit 10 Progress Met
--- NOTE | 2023-03-28 14:35 | PTOPDC ---
Assessment and note entered by JT File, PT Evaluation Information Assessment Status Re-evaluation Diagnosis Multifocal DJD, Gait Disturbance Onset 10/16/22 Subjective Information Patient states that she been sick with what she believes to be the flu about a week ago, she notes that since then she has more fatigued and noticed weakness. Patient reports she has noticed improved strength and balance since starting PT. She states that she is now able to stand up from a chair with improved ability, noting she has even been able to do this without UE use. She notes she is consistent with performing HEP. Reported Pain Level Pain Score 0: Self Report Assessment PT Clinical Summary Mrs. Gomez has attended 16 visits of skilled PT making good progress towards goals. She demonstrates improved Tinetti balance scoring, improving her safety for both home and community environments. She continues to show impairments in LE strength and endurance, but patient notes prior to recent sickness she felt that this had greatly improved. Patient also notes improved mobility and function in the home, stating standing up from chairs is no longer difficult to do. At this time, patient is to be discharged from PT with independent HEP to maintain LE strengthening and endurance as she tolerates. Plan of Care PT Services Indicated No
== END 2023-03-28 15:28 | disposition home or self-care (01) ==
LOC: CHSPT 13:11
PROVIDERS: PCP Internal Medicine; Visit Provider Internal Medicine
DX: M19.90 Unspecified osteoarthritis, unspecified site (principal); R26.9 Unspecified abnormalities of gait and mobility
CPT/HCPCS: 97110; 97112; 97116; 97161; 97530

== ENCOUNTER 2023-01-19 07:18 | Outpatient (RCR) | payer MEDICARE, BC, SELFPAY ==
[2022-11-07 08:00] VITALS: BMI 28.0
--- NOTE | 2022-11-07 08:47 | PM.IMHP ---
H&P: HPI History of Present Illness Date/Time: 11/07/22 08:47 Chief Complaint: Right Anterior Knee Wound s/p Fall Narrative: 82-year-old female presents to the [facility] wound clinic today upon referral of Dr. Zavala. She had a right total knee arthroplasty in 2015. She had a recent fall onto bilateral knees on October 2022. She was seen in the emergency room at that time. She has been seen by Dr. Zavala x2 since date of injury. She was seen most recently last week. She has been performing daily dressing changes with Silvadene and covering dry. She was referred to the wound clinic for a wound necrotic cap covering the wound on the right anterior knee. Patient reports she has been on antibiotics prophylactically for the knee as well as a UTI. She denies fever, chills, night sweats, nausea, vomiting or diarrhea. She is on Xarelto. She denies severe right knee pain with active and passive range of motion. She is able to ambulate severe pain. She does have swelling in the right lower extremity as well as diffuse ecchymosis. Patient reports improvement in ecchymosis of the RLE since date of injury. Review of Systems Review of Systems: All systems reviewed & are unremarkable except as noted in HPI and below PMFSH Past Medical History Medical History (Updated 11/07/22 @ 08:59 by ASHLYN Jones) Adult hypothyroidism Aftercare following knee joint replacement surgery Atrial fibrillation External hemorrhoids ABEL (generalized anxiety disorder) GERD (gastroesophageal reflux disease) HTN (hypertension) (02/28/18) Hypomagnesemia (01/17/18) Leg swelling Rectal bleeding Sleep apnea SVT (supraventricular tachycardia) Surgical History Surgical History (Updated 11/07/22 @ 08:56 by ASHLYN Jones) H/O hemorrhoidectomy 11/02/21 1. Internal and external hemorrhoidectomy x 1 column 2. Internal hemorrhoid rubber banding x 1 History of appendectomy History of hernia repair History of lumpectomy of left breast History of total right knee replacement Hx laparoscopic cholecystectomy Hx of coronary artery disease Hx of joint replacement Hx of small bowel obstruction Family History Family History Father Family history of chronic obstructive pulmonary disease Family history of coronary artery disease Father Family history of coronary artery disease Family history of chronic obstructive pulmonary disease Mother Hypertension Mother Hypertension Father Family history of coronary artery disease Family history of chronic obstructive pulmonary disease Other Diabetes mellitus Family history of arthritis Family history of cardiovascular disease Family history of gout Social History Social History Smoking status: Never smoker Alcohol intake: never Substance use: never Substance use type: does not use Living arrangements: with family Additional living arrangements comments: [facility] Occupation/Education: retired Gender identity (if verbalized by the patient): Female Spiritual care concerns: No Meds Home Medications and Allergies Home Medications Medication Instructions Recorded Confirmed Type alprazolam 0.5 mg tablet 0.5 mg PO TID PRN Anxiety 11/15/19 11/02/22 History dicyclomine 10 mg capsule 10 mg PO QID PRN IBS #180 caps 12/27/20 11/02/22 Rx metoprolol tartrate 25 mg tablet 25 mg PO BID 02/24/21 11/02/22 History spironolactone 25 mg tablet 25 mg PO QAM 04/11/21 11/02/22 History digoxin 125 mcg (0.125 mg) tablet 125 mcg PO DAILY 06/22/21 11/02/22 History cholecalciferol (vitamin D3) 25 25 mcg PO DAILY 10/20/21 11/02/22 History mcg (1,000 unit) capsule levothyroxine 25 mcg capsule 25 mcg PO QAM 10/20/21 11/02/22 History losartan 100 mg tablet 100 mg PO HS 10/20/21 11/02/22 History magnesium 100 mg tablet 100 mg PO QID 10/20/21 11/02/22 History verapamil 120 mg tablet 120 mg PO BI
--- NOTE | 2022-11-14 08:59 | PM.IMHP ---
H&P: HPI History of Present Illness Date/Time: 11/14/22 08:59 Chief Complaint: Right Anterior Knee Wound s/p Fall Narrative: 82-year-old female presents to the [facility] wound clinic today for follow up, initial referral of Dr. Zavala. She had a right total knee arthroplasty in 2015. She had a recent fall onto bilateral knees on October 2022. She was seen in the emergency room at that time. She has been seen by Dr. Zavala x2 since date of injury. She was seen most recently last week. She has been performing daily dressing changes with Silvadene and covering dry. She was referred to the wound clinic for a wound necrotic cap covering the wound on the right anterior knee. Patient reports she has been on antibiotics prophylactically for the knee as well as a UTI. She denies fever, chills, night sweats, nausea, vomiting or diarrhea. She is on Xarelto. She denies severe right knee pain with active and passive range of motion. She is able to ambulate severe pain. She does have swelling in the right lower extremity as well as diffuse ecchymosis. Patient reports improvement in ecchymosis of the RLE since date of injury. Review of Systems Review of Systems: All systems reviewed & are unremarkable except as noted in HPI and below PMFSH Past Medical History Medical History Adult hypothyroidism Aftercare following knee joint replacement surgery Atrial fibrillation External hemorrhoids ABEL (generalized anxiety disorder) GERD (gastroesophageal reflux disease) HTN (hypertension) (02/28/18) Hypomagnesemia (01/17/18) Leg swelling Rectal bleeding Right calf pain Sleep apnea SVT (supraventricular tachycardia) Surgical History Surgical History H/O hemorrhoidectomy 11/02/21 1. Internal and external hemorrhoidectomy x 1 column 2. Internal hemorrhoid rubber banding x 1 History of appendectomy History of hernia repair History of lumpectomy of left breast History of total right knee replacement Hx laparoscopic cholecystectomy Hx of coronary artery disease Hx of joint replacement Hx of small bowel obstruction Family History Family History Father Family history of chronic obstructive pulmonary disease Family history of coronary artery disease Father Family history of coronary artery disease Family history of chronic obstructive pulmonary disease Mother Hypertension Mother Hypertension Father Family history of coronary artery disease Family history of chronic obstructive pulmonary disease Other Diabetes mellitus Family history of arthritis Family history of cardiovascular disease Family history of gout Social History Social History Smoking status: Never smoker Alcohol intake: never Substance use: never Substance use type: does not use Living arrangements: with family Additional living arrangements comments: [facility] Occupation/Education: retired Gender identity (if verbalized by the patient): Female Spiritual care concerns: No Meds Home Medications and Allergies Home Medications Medication Instructions Recorded Confirmed Type alprazolam 0.5 mg tablet 0.5 mg PO TID PRN Anxiety 11/15/19 11/02/22 History dicyclomine 10 mg capsule 10 mg PO QID PRN IBS #180 caps 12/27/20 11/02/22 Rx metoprolol tartrate 25 mg tablet 25 mg PO BID 02/24/21 11/02/22 History spironolactone 25 mg tablet 25 mg PO QAM 04/11/21 11/02/22 History digoxin 125 mcg (0.125 mg) tablet 125 mcg PO DAILY 06/22/21 11/02/22 History cholecalciferol (vitamin D3) 25 25 mcg PO DAILY 10/20/21 11/02/22 History mcg (1,000 unit) capsule levothyroxine 25 mcg capsule 25 mcg PO QAM 10/20/21 11/02/22 History losartan 100 mg tablet 100 mg PO HS 10/20/21 11/02/22 History magnesium 100 mg tablet 100 mg PO QID 10/20/21 11/02/22 History
--- NOTE | 2022-12-01 08:47 | P.PNOP_ITS ---
Progress Note: A&P Assessment and Plan (1) Hematoma of right knee region: Code(s): S80.01XA - Contusion of right knee, initial encounter Status: Acute Assessment and Plan: Wound VAC removed from the right anterior knee. Wound measures 3x5x0.6cm, 100% red/pink wound bed. Good granulating tissue at the base. No tunneling. Plan for wound VAC holiday x1 week due to surrounding tissue maceration. Begin daily olvin ssing changes with aquacel AG rope in wound bed and cover dry with ABD pad.. Follow up in 1.5 weeks for reevaluation. (2) Hypertension: Code(s): I10 - Essential (primary) hypertension Status: Acute (3) Hypothyroidism: Code(s): E03.9 - Hypothyroidism, unspecified Status: Acute (4) Atrial fibrillation: Code(s): I48.91 - Unspecified atrial fibrillation Status: Acute Subjective Subjective Date/Time Seen: 12/01/22 08:47 Post Op day: 1.5 weeks Principal diagnosis: Right Knee Prepatellar Hematoma Interval history: 1 week, 2 days s/p I&D with evacuation of hematoma and placement of wound VAC right knee. Patient has been doing well with home health and wound VAC dressing changes. She does have new maceration around the wound from the VAC. Otherwise, no concerns. Review of Systems Review of Systems: All systems reviewed & are unremarkable except as noted in HPI and below Exam Const: General: comfortable and no acute distress HENMT: Mouth: Yes moist mucous membranes Eyes: General: appearance normal, both eyes and all related structures Neck: Neck: supple and no JVD Resp: Effort & Inspection: normal respiratory effort Cardio: Rate: regular rate Rhythm: regular rhythm GI: Inspection: non-distended GI Palp: Yes Soft to palpation and No Tenderness to palpation present (GI) Neuro: General: gait normal Cognition (Neuro): normal cognition Speech: normal speech Extrem: Right lower extremity: hip/thigh Details: tenderness, swelling, normal ROM and ecchymosis; no crepitus, knee ( Wound, anterior knee, see below) Details: tenderness, normal ROM, ecchymosis and crepitus, lower leg Details: localized swelling, ankle Details: swelling and foot Details: normal capillary refill, edema Location: of the dorsal foot and vascular exam Details: dorsalis pedis pulse present Other: Wound on the anterior aspect of the right knee measures 3.0x5.0x0.6 cm in depth. 100% red/pink wound bed. No signs of active infection. Good granulating, viable tissue in place. No tunneling. Maceration on the surrounding tissue from the wound VAC. Psych: Mental Status: mental status grossly normal Affect: normal affect Objective Data Meds/Results Medications: Active Medications Generic Name Dose Route Start Last Admin Trade Name Freq PRN Reason Stop Dose Admin Silver Nitrate 1 each 12/01/22 08:39 Aquacel Ag Advantage Bandage (*Bkc) TOPICAL 03/03/23 23:55 PRN PRN Wound Care Radiology Results: ITS Impressions Venous Doppler Study 11/07/22 10:01 IMPRESSION: 1. No deep venous thrombosis in the right lower limb. [facility] Follow-up Hospital Follow-up: [id number] Post-op Follow Up
--- NOTE | 2022-12-12 09:32 | PM.PNORT ---
Progress Note: A&P Assessment and Plan (1) Hematoma of right knee region: Code(s): S80.01XA - Contusion of right knee, initial encounter Status: Acute Assessment and Plan: Wound measures 3x4x1.5 cm, 100% red/pink wound bed. Good granulating tissue at the base. Plan to completely discontinue wound VAC. Patient does not feel she needs home health anymore either. Continue daily dressing changes with Aquacel AG rope in wound bed and cover dry with ABD pad. Follow up in 1 week for reevaluation. (2) Hypertension: Code(s): I10 - Essential (primary) hypertension Status: Acute (3) Hypothyroidism: Code(s): E03.9 - Hypothyroidism, unspecified Status: Acute (4) Atrial fibrillation: Code(s): I48.91 - Unspecified atrial fibrillation Status: Acute Subjective Subjective Date/Time Seen: 12/12/22 09:32 Post Op day: 3 weeks Principal diagnosis: Right Knee Prepatellar Hematoma Interval history: 3 weeks s/p I&D with evacuation of hematoma and placement of wound VAC right knee. Patient has been doing well with home health and dressing changes. Wound VAC held last week. Tolerating dressing changes well. Review of Systems Review of Systems: All systems reviewed & are unremarkable except as noted in HPI and below Exam Const: General: comfortable and no acute distress HENMT: Mouth: Yes moist mucous membranes Eyes: General: appearance normal, both eyes and all related structures Neck: Neck: supple and no JVD Resp: Effort & Inspection: normal respiratory effort Cardio: Rate: regular rate Rhythm: regular rhythm GI: Inspection: non-distended GI Palp: Yes Soft to palpation and No Tenderness to palpation present (GI) Neuro: General: gait normal Cognition (Neuro): normal cognition Speech: normal speech Extrem: Right lower extremity: hip/thigh Details: tenderness, swelling, normal ROM and ecchymosis; no crepitus, knee ( Wound, anterior knee, see below) Details: tenderness, normal ROM, ecchymosis and crepitus, lower leg Details: localized swelling, ankle Details: swelling and foot Details: normal capillary refill, edema Location: of the dorsal foot and vascular exam Details: dorsalis pedis pulse present Other: Wound on the anterior aspect of the right knee measures 3x4x1.5 cm in depth. 100% red/pink wound bed. No signs of active infection. Good granulating, viable tissue in place. Psych: Mental Status: mental status grossly normal Affect: normal affect Objective Data Meds/Results Medications: Active Medications Generic Name Dose Route Start Last Admin Trade Name Freq PRN Reason Stop Dose Admin Silver Nitrate 1 each 12/01/22 08:39 Aquacel Ag Advantage Bandage (*Bkc) TOPICAL 03/03/23 23:55 PRN PRN Wound Care Radiology Results: ITS Impressions Venous Doppler Study 11/07/22 10:01 IMPRESSION: 1. No deep venous thrombosis in the right lower limb.
--- NOTE | 2022-12-19 08:38 | PM.PNORT ---
Progress Note: A&P Assessment and Plan (1) Hematoma of right knee region: Code(s): S80.01XA - Contusion of right knee, initial encounter Status: Acute Assessment and Plan: Wound measures 2.2x3.5x1.5 cm, 100% red/pink wound bed. Abrasion more distal to wound now open and measuring 0.9x1.5x0.5cm, 100% red/pink wound bed. Good granulating tissue at the base of both wounds. Continue daily dressing changes with Aquacel AG rope in wound bed and cover dry with ABD pad. Apply silver rope to new open wound as well. Follow up in 1 week for reevaluation. (2) Hypertension: Code(s): I10 - Essential (primary) hypertension Status: Acute (3) Hypothyroidism: Code(s): E03.9 - Hypothyroidism, unspecified Status: Acute (4) Atrial fibrillation: Code(s): I48.91 - Unspecified atrial fibrillation Status: Acute Subjective Subjective Date/Time Seen: 12/19/22 08:38 Post Op day: 4 (weeks ) Principal diagnosis: Right Knee Prepatellar Hematoma Interval history: 4 weeks s/p I&D with evacuation of hematoma and placement of wound VAC right knee. Patient has been doing well with home health and dressing changes. Wound VAC discontinued last week. Tolerating dressing changes well. No new concerns. Review of Systems Review of Systems: All systems reviewed & are unremarkable except as noted in HPI and below Exam Const: General: comfortable and no acute distress HENMT: Mouth: Yes moist mucous membranes Eyes: General: appearance normal, both eyes and all related structures Neck: Neck: supple and no JVD Resp: Effort & Inspection: normal respiratory effort Cardio: Rate: regular rate Rhythm: regular rhythm GI: Inspection: non-distended GI Palp: Yes Soft to palpation and No Tenderness to palpation present (GI) Neuro: General: gait normal Cognition (Neuro): normal cognition Speech: normal speech Extrem: Right lower extremity: hip/thigh Details: tenderness, swelling, normal ROM and ecchymosis; no crepitus, knee ( Wound, anterior knee, see below) Details: tenderness, normal ROM, ecchymosis and crepitus, lower leg Details: localized swelling, ankle Details: swelling and foot Details: normal capillary refill, edema Location: of the dorsal foot and vascular exam Details: dorsalis pedis pulse present Other: Wound on the anterior aspect of the right knee measures 2.2x3.5x1.5 cm in depth. 100% red/pink wound bed. Abrasion more distal to the wound bed now open and measuring 0.9x1.5x0.5cm. No signs of active infection. Good granulating, viable tissue in place. Psych: Mental Status: mental status grossly normal Affect: normal affect Objective Data Meds/Results Medications: Active Medications Generic Name Dose Route Start Last Admin Trade Name Freq PRN Reason Stop Dose Admin Silver Nitrate 1 each 12/01/22 08:39 Aquacel Ag Advantage Bandage (*Bkc) TOPICAL 03/03/23 23:55 PRN PRN Wound Care Wound Care/Dressing Products 1 patch 12/12/22 12:11 Mepilex Transfer Drsg 6x8 TOPICAL 03/14/23 23:55 PRN PRN Wound Care Radiology Results: ITS Impressions Venous Doppler Study 11/07/22 10:01 IMPRESSION: 1. No deep venous thrombosis in the right lower limb.
--- NOTE | 2022-12-26 08:43 | PM.PNORT ---
Progress Note: A&P Assessment and Plan (1) Hematoma of right knee region: Code(s): S80.01XA - Contusion of right knee, initial encounter Status: Acute Assessment and Plan: Wound measures 1.7x2.5x1.5 cm, 100% red/pink wound bed. Abrasion more distal to wound now open and measuring 1x1.5x1.3 cm, 100% red/pink wound bed. Good granulating tissue at the base of both wounds. Continue daily dressing changes with yun, silver gel, transfer, ABD and cover dry. Patient would benefit from Amnioexcel grafting for expedited wound closure, most significantly at then tunnel. Follow up in 1 week for reevaluation. (2) Hypertension: Code(s): I10 - Essential (primary) hypertension Status: Acute (3) Hypothyroidism: Code(s): E03.9 - Hypothyroidism, unspecified Status: Acute (4) Atrial fibrillation: Code(s): I48.91 - Unspecified atrial fibrillation Status: Acute Subjective Subjective Date/Time Seen: 12/26/22 08:43 Post Op day: 4 (weeks ) Principal diagnosis: Right Knee Prepatellar Hematoma Interval history: 4 weeks, 6 days s/p I&D with evacuation of hematoma and placement of wound VAC right knee. Patient has been doing well with home health and dressing changes. Wound VAC previously discontinued. Tolerating dressing changes well. No new concerns. Review of Systems Review of Systems: All systems reviewed & are unremarkable except as noted in HPI and below Exam Const: General: comfortable and no acute distress HENMT: Mouth: Yes moist mucous membranes Eyes: General: appearance normal, both eyes and all related structures Neck: Neck: supple and no JVD Resp: Effort & Inspection: normal respiratory effort Cardio: Rate: regular rate Rhythm: regular rhythm GI: Inspection: non-distended GI Palp: Yes Soft to palpation and No Tenderness to palpation present (GI) Neuro: General: gait normal Cognition (Neuro): normal cognition Speech: normal speech Extrem: Right lower extremity: hip/thigh Details: tenderness, swelling, normal ROM and ecchymosis; no crepitus, knee ( Wound, anterior knee, see below) Details: tenderness, normal ROM, ecchymosis and crepitus, lower leg Details: localized swelling, ankle Details: swelling and foot Details: normal capillary refill, edema Location: of the dorsal foot and vascular exam Details: dorsalis pedis pulse present Other: Wound on the anterior aspect of the right knee measures 1.7x2.5x1.5 cm in depth. 100% red/pink wound bed. Abrasion more distal to the wound bed now open and measuring 1x1.5x1.3 cm. No signs of active infection. Good granulating, viable tissue in place. Psych: Mental Status: mental status grossly normal Affect: normal affect Objective Data Meds/Results Medications: Active Medications Generic Name Dose Route Start Last Admin Trade Name Freq PRN Reason Stop Dose Admin Silver Nitrate 1 each 12/01/22 08:39 Aquacel Ag Advantage Bandage (*Bkc) TOPICAL 03/03/23 23:55 PRN PRN Wound Care Wound Care/Dressing Products 1 patch 12/12/22 12:11 Mepilex Transfer Drsg 6x8 TOPICAL 03/14/23 23:55 PRN PRN Wound Care Radiology Results: ITS Impressions Venous Doppler Study 11/07/22 10:01 IMPRESSION: 1. No deep venous thrombosis in the right lower limb. [facility] Follow-up Hospital Follow-up: [id number] Post-op Follow Up
--- NOTE | 2023-01-02 08:27 | PM.PNORT ---
Progress Note: A&P Assessment and Plan (1) Hematoma of right knee region: Code(s): S80.01XA - Contusion of right knee, initial encounter Status: Acute Assessment and Plan: Wound measures 0.6x2.4x0.6 cm, 100% red/pink wound bed. Abrasion more distal to wound now open and measuring 0.7x1.0x0.3 cm, 100% red/pink wound bed. Good granulating tissue at the base of both wounds. Continue daily dressing changes with yun, silver gel, transfer, ABD and cover dry. Continue to follow with the [facility] wound clinic nurses weekly. Follow up with Dr. Zavala in 4 weeks. Okay to resume formal PT. Discontinue HH with [facility]. Will send orders. Patient/ confident in independent dressing changes. (2) Hypertension: Code(s): I10 - Essential (primary) hypertension Status: Acute (3) Hypothyroidism: Code(s): E03.9 - Hypothyroidism, unspecified Status: Acute (4) Atrial fibrillation: Code(s): I48.91 - Unspecified atrial fibrillation Status: Acute Subjective Subjective Date/Time Seen: 01/02/23 08:27 Principal diagnosis: Right Knee Prepatellar Hematoma Interval history: 5 weeks, 6 days s/p I&D with evacuation of hematoma and placement of wound VAC right knee. Patient has been doing well with home health and dressing changes. Wound VAC previously discontinued. Tolerating dressing changes well. No new concerns. Review of Systems Review of Systems: All systems reviewed & are unremarkable except as noted in HPI and below Exam Const: General: comfortable and no acute distress HENMT: Mouth: Yes moist mucous membranes Eyes: General: appearance normal, both eyes and all related structures Neck: Neck: supple and no JVD Resp: Effort & Inspection: normal respiratory effort Cardio: Rate: regular rate Rhythm: regular rhythm GI: Inspection: non-distended GI Palp: Yes Soft to palpation and No Tenderness to palpation present (GI) Neuro: General: gait normal Cognition (Neuro): normal cognition Speech: normal speech Extrem: Right lower extremity: hip/thigh Details: tenderness, swelling, normal ROM and ecchymosis; no crepitus, knee ( Wound, anterior knee, see below) Details: tenderness, normal ROM, ecchymosis and crepitus, lower leg Details: localized swelling, ankle Details: swelling and foot Details: normal capillary refill, edema Location: of the dorsal foot and vascular exam Details: dorsalis pedis pulse present Other: Wound on the anterior aspect of the right knee measures 0.6x2.4x0.6 cm in depth. 100% red/pink wound bed. Abrasion more distal to the wound bed now open and measuring 0.7x1.0x0.3 cm. No signs of active infection. Good granulating, viable tissue in place. Psych: Mental Status: mental status grossly normal Affect: normal affect Objective Data Meds/Results Medications: Active Medications Generic Name Dose Route Start Last Admin Trade Name Freq PRN Reason Stop Dose Admin Silver Nitrate 1 applic 12/26/22 13:55 Silvergel (Elta) 45 Ml TOPICAL 03/28/23 23:55 PRN PRN Wound Care Wound Care/Dressing Products 1 patch 12/12/22 12:11 Mepilex Transfer Drsg 6x8 TOPICAL 03/14/23 23:55 PRN PRN Wound Care Radiology Results: ITS Impressions Venous Doppler Study 11/07/22 10:01 IMPRESSION: 1. No deep venous thrombosis in the right lower limb. [facility] Follow-up Hospital Follow-up: [id number] Post-op Follow Up
--- NOTE | ~2023-01-19 | US_ITS ---
EXAMINATION: US venous doppler LE DATE: 11/07/2022 10:00 INDICATION: Right lower limb pain and swelling TECHNIQUE: Grayscale ultrasound images without and with compression and Doppler ultrasound images of the right lower extremity veins were obtained. COMPARISON: None. FINDINGS: The visualized portions of right common femoral vein, profunda (deep) femoral vein, femoral vein, pop liteal vein, peroneal trunk, posterior tibial veins, peroneal veins, gastrocnemius vein and greater s aphenous vein outflow are patent. IMPRESSION: 1. No deep venous thrombosis in the right lower limb. Reviewed, dictated and finalized at location A.
== END 2023-02-05 23:59 | disposition home or self-care (01) ==
LOC: ANHWOC 07:18
PROVIDERS: PCP Internal Medicine; Visit Provider Orthopaedic Surgery
DX: S80.01XD Contusion of right knee, subsequent encounter (principal); M79.89 Other specified soft tissue disorders; Z96.651 Presence of right artificial knee joint
CPT/HCPCS: 93971; 99213; A9270; G0463

== ENCOUNTER 2023-01-25 13:04 | Outpatient (CLI) | payer MEDICARE, BC, SELFPAY ==
--- NOTE | 2023-01-25 13:15 | PC.NURSE ---
Here for OP magnesium infusion
[2023-01-25] MEDS: MAGNESIUM SULFATE IVPB (13:26)
[2023-01-25] MEDS: SODIUM CHLORIDE 0.9% IVPB (13:26)
[2023-01-25 13:58] VITALS: BMI 27.4
[2023-01-25 13:59] VITALS: BP 128/59; PULSE 50; RESP 18; TEMP 35.8; O2SAT 95
== END 2023-01-25 13:05 | disposition home or self-care (01) ==
LOC: CHSTREATRM 13:07
PROVIDERS: PCP Internal Medicine; Visit Provider Internal Medicine
DX: E83.42 Hypomagnesemia (principal)
CPT/HCPCS: 96365; 96366; J3475; J7050

== ENCOUNTER 2023-02-17 10:34 | Emergency (ER) | payer MEDICARE, BC, SELFPAY ==
--- NOTE | ~2023-02-17 | CT_ITS ---
EXAMINATION: CT brain wo con DATE: 02/17/2023 11:35 INDICATION: Memory loss TECHNIQUE: Computed tomography (CT) of the head was performed without intravenous contrast. Sagittal and coronal reconstructions were performed. The mA was adjusted according to patient size. Iterative reconstruction technique was employed. The dose-length product was 605.33 mGy-cm. COMPARISON: head CT dated 10/22/22 FINDINGS: No acute intracranial hemorrhage, acute infarction or abnormal extra axial fluid collection. There is mild scattered white matter hypoattenuation consistent with chronic small vessel ischemic disease. Ventricles are normal and symmetric. No mass/mass effect. Changes of bilateral intraocular lens repla cement. There is a small metallic density which appears to be located within the anterior chamber of the left globe. Correlate with ophthalmic history. The paranasal sinuses and mastoid air cells are n ormal. IMPRESSION: 1. Mild scattered white matter hypoattenuation consistent with chronic small vessel ischemic disease. No acute intracranial process. Reviewed, dictated and finalized at location A. IMPRESSION: 1. Mild scattered white matter hypoattenuation consistent with chronic small ve ssel ischemic disease. No acute intracranial process.
[2023-02-17 10:34] VITALS: BP 171/99; PULSE 73; RESP 21; TEMP 36.9; O2SAT 98
--- NOTE | 2023-02-17 10:42 | ED.AMS ---
HPI - Altered Mental Status General Chief Complaint: Unspecified Stated Complaint: hypertension Time Seen by Provider: 02/17/23 10:40 Source: patient Mode of arrival: ambulatory Limitations: no limitations History of Present Illness HPI narrative: 82-year-old female with a history hypertension, hypothyroidism, ABEL/ Panic disorder, depression, NAEL, GERD, dyslipidemia atrial fibrillation on Xarelto, had right knee replacement many years ago. She had a fall and sustained a hematoma over right knee joint on 11/23/2022 for which she was admitted at [facility]. The patient had evacuation of the hematoma and subsequently had wound VAC. The [facility] 11/[facility] to 01/05/2023. The patient's anticoagulation Xarelto was changed to Eliquis recently. This morning the patient was noted to have -- hypertension with a diastolic of greater than 100. -- felt confused and was not able to identify her pills. She does not appear to have any other deficits. The patient's physician thinks that she had a post concussive syndrome secondary to a fall in October of this year. The patient does not have any focal neuro deficits. The patient denied any headache or blurred vision. The patient did not have any dysphagia or focal neuro deficits. MD complaint: confusion Onset (ago): hour(s) ( 3 hours ago) Time: 08:00 Timing confirmed by: spouse Severity: mild Associated symptoms: denies other symptoms Related Data Home Medications Medication Instructions Recorded Confirmed alprazolam 0.5 mg tablet 0.5 mg PO HS PRN Anxiety 11/15/19 02/17/23 metoprolol tartrate 25 mg tablet 25 mg PO BID 02/24/21 02/17/23 spironolactone 25 mg tablet 25 mg PO QAM 04/11/21 02/17/23 digoxin 125 mcg (0.125 mg) tablet 125 mcg PO DAILY 06/22/21 02/17/23 cholecalciferol (vitamin D3) 25 25 mcg PO DAILY 10/20/21 02/17/23 mcg (1,000 unit) capsule levothyroxine 25 mcg capsule 25 mcg PO QAM 10/20/21 02/17/23 losartan 100 mg tablet 100 mg PO HS 10/20/21 02/17/23 magnesium 100 mg tablet 100 mg PO QID 10/20/21 02/17/23 duloxetine 20 mg capsule,delayed 20 mg PO HS 10/17/22 02/17/23 release verapamil 120 mg tablet,extended 120 mg PO BID 11/22/22 02/17/23 release apixaban 2.5 mg tablet (Eliquis) 2.5 mg PO BID 02/17/23 02/17/23 estradiol 0.05 mg/24 hr weekly 1 patch topical WEEKLY 02/17/23 02/17/23 transdermal patch fenofibric acid (choline) 135 mg 135 mg PO DAILY 02/17/23 02/17/23 capsule,delayed release Allergies Allergy/AdvReac Type Severity Reaction Status Date / Time ciprofloxacin Allergy Intermediate Confusion Verified 02/17/23 10:54 codeine Allergy Intermediate Unknown Verified 02/17/23 10:54 iohexol Allergy Intermediate Hives Verified 02/17/23 10:54 [From contrast - CT, X-RAY] Sulfa (Sulfonamide Allergy Intermediate Confusion Verified 02/17/23 10:54 Antibiotics) Review of Systems Review of Systems: All systems reviewed & are unremarkable except as noted in HPI and below Constitutional: Constitutional: Reports as per HPI and Reports no additional constitutional complaints Eyes: Eyes: Reports as per HPI and Reports no additional eye complaints ENT: Reports system reviewed and no additional complaints, except as documented and Reports as per HPI Cardiovascular: Cardiovascular: Reports as per HPI and Reports no additional cardiovascular complaints Respiratory: Respiratory: Reports as per HPI and Reports no additional respiratory complaints Gastrointestinal: Gastrointestinal: Reports as per HPI and Reports no additional gastrointestinal complaints Genitourinary: Genitourinary: Reports no additional female genitourinary complaints and Reports as per HPI Musculoskeletal: Musculoskeletal: Reports no additional musculoskeletal complaints and Reports as per HPI Integumentary/Breasts: Skin/Breast: Reports system reviewed and no additional complaints, except as docu and Reports as per HPI Neurologic: Reports system
--- NOTE | 2023-02-17 11:01 | ECG_ITS ---
Measurements Intervals [place] Rate: 63 P: ND: 0 QRS: 0 QRSD: 85 T: -24 QT: 364 QTc: 374 Interpretive Statements ATRIAL FIBRILLATION LOW QRS VOLTAGE IN PRECORDIAL LEADS [QRS DEFLECTION < 1.0 mV IN CHEST LEADS] POOR R-WAVE PROGRESSION COMPARED TO ECG 09/04/2021 21:25:10 NO SIGNIFICANT CHANGES Electronically Signed On 02-17-2023 15:01:18 CDT by Sienna Roman M.D.
[2023-02-17 12:12] LABS: Basophils Absolute Auto 0.07 K/mm3 (0.00-0.10); Basophils Percent Auto 0.9 % (0.0-1.0); Eosinophils Absolute Auto 0.09 K/mm3 (0.02-0.50); Eosinophils Percent Auto 1.2 % (1.0-6.0); Hematocrit 48.1 % (35.0-42.0); Hemoglobin 16.7 g/dL (11.7-13.8); Immature Granulocyte Absolute 0.02 K/mm3 (0.00-0.00); Immature Granulocyte Percent A 0.3 % (0.0-0.0); Lymphocytes Absolute Auto 1.46 K/mm3 (1.10-4.50); Lymphocytes Percent Auto 19.1 % (18.0-42.0); Mean Corpuscular HGB Conc 34.7 g/dL (32.0-36.0); Mean Corpuscular Hemoglobin 34.6 pg (27.0-31.0); Mean Corpuscular Volume 99.6 fL (78.0-102.0); Mean Platelet Volume 9.8 fl (9.2-11.8); Monocytes Absolute Auto 0.62 K/mm3 (0.10-0.90); Monocytes Percent Auto 8.1 % (2.0-11.0); Neutrophils Absolute Auto 5.4 K/mm3 (1.7-7.2); Neutrophils Percent Auto 70.4 % (50.0-70.0); Platelet Count Result 244 K/mm3 (150-420); Red Blood Count 4.83 M/mm3 (4.20-5.40); Red Cell Distribution Width 12.6 % (11.6-14.4); White Blood Count 7.7 K/mm3 (4.8-10.8)
[2023-02-17 12:14] LABS: Appearance Urine Clear (Clear); Bilirubin Urine Negative (Negative); Color Urine Light Yellow (Yellow); Glucose Urine UA Negative (Negative); Ketones Urine Negative (Negative); Leukocyte Esterase Ur Negative LEU/UL (Negative); Nitrate Urine Negative (Negative); Protein Urine Negative (Negative); Specific Grav Ur <= 1.005 (1.010-1.020); Urobilinogen Urine 0.2 mg/dL (0.2-1.0); pH Urine 7.5 (5.0-8.0)
[2023-02-17 12:22] LABS: Add Urine Microscopic? YES; Bacteria Urine Trace /hpf; Blood Urine Trace-lysed (Negative); RBC Urine 0-2 /hpf (0-2); Squamous Epithelial Cell Urine Moderate /hpf (Few); WBC Urine 0-3 /hpf (0-3)
[2023-02-17 12:38] LABS: Alanine Aminotransferase 19 U/L (14-59); Albumin Level 3.9 g/dL (3.4-5.0); Alkaline Phosphatase 42 U/L (46-116); Anion Gap 7 mmol/L (8-16); Aspartate Amino Transferase 17 U/L (15-37); Bilirubin,Total 1.1 mg/dL (0.00-1.00); Blood Urea Nitrogen 22 mg/dL (7-18); Calcium 10.3 mg/dL (8.5-10.1); Carbon Dioxide 31 mmol/L (21-32); Chloride 99 mmol/L (98-108); Estimated CRCL calculation 39 ml/min; Estimated Glomerular Filt Rate 52; Glucose 96 mg/dL (70-99); Magnesium 1.5 mg/dL (1.8-2.4); NT Pro B Type Natriuretic Pept 1696 pg/mL (0-450); Osmolality Calculated 287 mOsm/kg (285-295); Potassium 5.2 mmol/L (3.5-5.1); Sodium 137 mmol/L (136-145); Thyroid Stimulating Hormone 1.98 uIU/mL (0.36-3.74); Total Protein 7.3 g/dL (6.4-8.2); Troponin I 8.6 ng/L (0.00-60.4)
[2023-02-17] MEDS: MAGNESIUM SULF 2 GM/WATER 50ML 2 GM/50 ML BAG IVPB (12:58)
[2023-02-17 14:45] VITALS: BP 153/87; PULSE 71; RESP 20; TEMP 36.9; O2SAT 97
== END 2023-02-17 14:30 | disposition home or self-care (01) ==
PROVIDERS: Emergency Provider Internal Medicine Critical Care Medicine; PCP Internal Medicine
DX: E83.42 Hypomagnesemia (principal); F41.9 Anxiety disorder, unspecified; I10 Essential (primary) hypertension; I48.91 Unspecified atrial fibrillation; E03.9 Hypothyroidism, unspecified; E78.5 Hyperlipidemia, unspecified; Z79.01 Long term (current) use of anticoagulants; Z79.899 Other long term (current) drug therapy
CPT/HCPCS: 36415; 70450; 80053; 81001; 83735; 83880; 84443; 84484; 85025; 93005; 96365; 99284; J3475

== ENCOUNTER 2023-03-05 11:10 | Outpatient (RCR) | payer MEDICARE, SELFPAY ==
[2023-01-23 12:10] LABS: Magnesium 1.4 mg/dL (1.8-2.4)
[2023-03-05 11:57] LABS: Magnesium 1.6 mg/dL (1.8-2.4)
== END 2023-04-23 23:59 | disposition home or self-care (01) ==
LOC: CHSLAB 11:10
PROVIDERS: PCP Internal Medicine; Visit Provider Internal Medicine
DX: E83.42 Hypomagnesemia (principal)
CPT/HCPCS: 36415; 83735

== ENCOUNTER 2023-03-22 11:16 | Outpatient (CLI) | payer MEDICARE, SELFPAY ==
[2023-03-22 11:30] LABS: Basophils Absolute Auto 0.03 K/mm3 (0.00-0.10); Basophils Percent Auto 0.4 % (0.0-1.0); Eosinophils Absolute Auto 0.08 K/mm3 (0.02-0.50); Eosinophils Percent Auto 1.1 % (1.0-6.0); Hematocrit 49.7 % (35.0-42.0); Hemoglobin 16.6 g/dL (11.7-13.8); Immature Granulocyte Absolute 0.02 K/mm3 (0.00-0.00); Immature Granulocyte Percent A 0.3 % (0.0-0.0); Lymphocytes Percent Auto 23.8 % (18.0-42.0); Mean Corpuscular HGB Conc 33.4 g/dL (32.0-36.0); Mean Corpuscular Hemoglobin 34.2 pg (27.0-31.0); Mean Corpuscular Volume 102.3 fL (78.0-102.0); Mean Platelet Volume 9.7 fl (9.2-11.8); Monocytes Percent Auto 7.9 % (2.0-11.0); Neutrophils Percent Auto 66.5 % (50.0-70.0); Platelet Count Result 264 K/mm3 (150-420); Red Blood Count 4.86 M/mm3 (4.20-5.40); Red Cell Distribution Width 12.7 % (11.6-14.4); White Blood Count 7.6 K/mm3 (4.8-10.8)
[2023-03-22 12:07] LABS: Alanine Aminotransferase 53 U/L (14-59); Albumin Level 3.8 g/dL (3.4-5.0); Alkaline Phosphatase 62 U/L (46-116); Anion Gap 8 mmol/L (8-16); Aspartate Amino Transferase 37 U/L (15-37); Bilirubin,Total 0.9 mg/dL (0.00-1.00); Blood Urea Nitrogen 32 mg/dL (7-18); Calcium 9.5 mg/dL (8.5-10.1); Carbon Dioxide 29 mmol/L (21-32); Chloride 100 mmol/L (98-108); Estimated Glomerular Filt Rate 45; Glucose 96 mg/dL (70-99); Magnesium 1.6 mg/dL (1.8-2.4); Osmolality Calculated 290 mOsm/kg (285-295); Potassium 5.1 mmol/L (3.5-5.1); Sodium 137 mmol/L (136-145)
[2023-03-22 16:14] LABS: Occult Blood Positive (Negative)
== END 2023-03-22 11:17 | disposition home or self-care (01) ==
LOC: CHSLAB 11:18
PROVIDERS: PCP Internal Medicine; Visit Provider Internal Medicine
DX: R19.7 Diarrhea, unspecified (principal); E83.42 Hypomagnesemia
CPT/HCPCS: 36415; 80053; 82272; 83735; 85025

== ENCOUNTER 2023-04-28 11:25 | Outpatient (CLI) | payer MEDICARE, BC, SELFPAY ==
[2023-04-28 12:10] LABS: Partial Thromboplastin Time 30.9 SEC (23.90-30.70); Prothrombin Time 11.1 Seconds (9.50-12.10)
[2023-04-28 12:37] LABS: Digoxin 1.3 ng/mL (0.9-2.0); Magnesium 1.6 mg/dL (1.8-2.4)
== END 2023-04-28 11:26 | disposition home or self-care (01) ==
PROVIDERS: PCP Internal Medicine; Visit Provider Anesthesiology
DX: Z51.81 Encounter for therapeutic drug level monitoring (principal); N28.9 Disorder of kidney and ureter, unspecified; E83.42 Hypomagnesemia; Z79.01 Long term (current) use of anticoagulants
CPT/HCPCS: 36415; 80162; 83735; 85610; 85730

== ENCOUNTER 2023-05-07 02:59 | Day surgery (SDC) | payer MEDICARE, BC, SELFPAY ==
[2023-04-27 10:56] VITALS: BMI 27.4
--- NOTE | 2023-04-27 11:14 | PC.NURSE ---
Report to the Outpatient Waiting Room, entrance under the green pavilion located off [facility], at time _1100 on date __05/07/23 . Planned Procedure Time: ___1 PM . Time changes happen often and if your time is changed the preop area will call you the afternoon before. - You and your visitor will be asked to self-screen and do not enter if you have any COVID symptoms. - A mask is optional within the hospital at this time. Patients may have clear liquids (water, carbonated beverages, clear teas, apple juice) until 3 hours prior to surgery (1000 AM) with a maximum of 20 ounces. - No food from midnight until time of surgery - Infants may have breast milk until 4 hours before surgery, infant formula 6 hours prior to surgery. - Children will be allowed to drink immediately following surgery. If applicable, please bring a bottle or sippy cup to assist with drinking. Juice, water, soda, and popsicles are readily available. For infants on formula, please bring formula the day of surgery. Pacifiers are allowed. Take the following medications with a SIP of water the morning of surgery: ___DIGOXIN, METOPROLOL, VERAPAMIL____ DO NOT STOP ANY OF YOUR OTHER PRESCRIPTION MEDICATIONS PRIOR TO SURGERY ?EXCEPT THE FOLLOWING Medications to discontinue per physician __PT STATES LAST DOSE OF ELIQUIS WAS APPROXIMATELY 2 WEEKS AGO__ Date to take last dose Please no make-up, nail tajik, hairspray, perfume, deodorant, or body powder the day of surgery. No jewelry (including any body piercings) or valuables the day of surgery, leave them at home. Please take a shower or bath the night before, or the morning of, surgery with an antibacterial soap. Wear comfortable, loose fitting clothing. Children are encouraged to wear pajamas. - Jewelry must be removed prior to entering the operating room. Rings and piercings that are not removed may be cut off. - The hospital will not accept responsibility for valuables. - Please leave all valuables, including medications, at home the day of surgery. If you are going home after surgery, a licensed sales warehouse driver must drive you home. - NO public transportation without another adult if you receive anesthesia. - We recommend that an adult stay with you for 24 hours following discharge. - We also recommend that you do not drive, make important decision, drink alcoholic beverages, or take any drugs that were not prescribed by your health care provider for at least 24 hours after your discharge time. For Pediatric surgeries, we recommend two adults accompany the child home. Follow any additional instructions given to you from your surgeon. If you or anyone in your household have experienced Covid symptoms in the past week, please notify your surgeon or the nurse liaison at the phone number below for possible testing. Telephone instructions given to ___PT and asked if any additional questions and then verbalized understanding. Patient advised to call surgeon office or pre surgery nurse liaison [phone] if any additional questions.
--- NOTE | 2023-04-27 11:23 | PC.NURSE ---
Addendum entered by Blanka Bullard RN 05/01/23 14:08: PT NOTIFIED TO TAKE LEVOTHYROXINE WITH A SMALL SIP OF WATER THE MORNING OF SURGERY. PT ALSO INSTRUCTED TO STOP VITAMINS 3 DAYS BEFORE SURGERY (LAST DOSE 05/03). Original Note: Report to the Outpatient Waiting Room, entrance under the green pavilion located off [facility], at time __1100 on date __05/07/23 . Planned Procedure Time: ___1 PM . Time changes happen often and if your time is changed the preop area will call you the afternoon before. - You and your visitor will be asked to self-screen and do not enter if you have any COVID symptoms. - A mask is optional within the hospital at this time. Patients may have clear liquids (water, carbonated beverages, clear teas, apple juice) until 3 hours prior to surgery (1000 AM) with a maximum of 20 ounces. - No food from midnight until time of surgery - Infants may have breast milk until 4 hours before surgery, infant formula 6 hours prior to surgery. - Children will be allowed to drink immediately following surgery. If applicable, please bring a bottle or sippy cup to assist with drinking. Juice, water, soda, and popsicles are readily available. For infants on formula, please bring formula the day of surgery. Pacifiers are allowed. Take the following medications with a SIP of water the morning of surgery: __DIGOXIN, METOPROLOL, VERAPAMIL DO NOT STOP ANY OF YOUR OTHER PRESCRIPTION MEDICATIONS PRIOR TO SURGERY ?EXCEPT THE FOLLOWING Medications to discontinue per physician ___PT STATES STOPPING ELIQUIS APPROXIMATELY 2 WEEKS AGO Date to take last dose Please no make-up, nail bolivian, hairspray, perfume, deodorant, or body powder the day of surgery. No jewelry (including any body piercings) or valuables the day of surgery, leave them at home. Please take a shower or bath the night before, or the morning of, surgery with an antibacterial soap. Wear comfortable, loose fitting clothing. Children are encouraged to wear pajamas. - Jewelry must be removed prior to entering the operating room. Rings and piercings that are not removed may be cut off. - The hospital will not accept responsibility for valuables. - Please leave all valuables, including medications, at home the day of surgery. If you are going home after surgery, a licensed intermodal owner operator truck driver must drive you home. - NO public transportation without another adult if you receive anesthesia. - We recommend that an adult stay with you for 24 hours following discharge. - We also recommend that you do not drive, make important decision, drink alcoholic beverages, or take any drugs that were not prescribed by your health care provider for at least 24 hours after your discharge time. For Pediatric surgeries, we recommend two adults accompany the child home. Follow any additional instructions given to you from your surgeon. If you or anyone in your household have experienced Covid symptoms in the past week, please notify your surgeon or the nurse liaison at the phone number below for possible testing. Telephone instructions given to ___PT and asked if any additional questions and then verbalized understanding. Patient advised to call surgeon office or pre surgery nurse liaison [phone] if any additional questions.
[2023-05-07] VITALS (8 sets, daily range): BP systolic 160–188; BP diastolic 78–102; PULSE 63–78; RESP 12–18; TEMP 36.2–36.9; O2SAT 96–100
[2023-05-07] MEDS: LACTATED RINGERS 1,000 ML 30 ML IV CONT ×2 (11:50→14:53)
[2023-05-07] MEDS: ACETAMINOPHEN 500 MG TABLET 1000 MG PO (12:05)
[2023-05-07] MEDS: KETOROLAC 15 MG/ML VIAL (*BKC) IV PUSH (12:05)
--- NOTE | 2023-05-07 12:53 | PM.IMHP ---
H&P: HPI History of Present Illness Date/Time: 05/07/23 12:53 Chief Complaint: Rectal bleeding, internal hemorrhoids Narrative: This is an 82-year-old woman who presents with recurrent rectal bleeding from internal hemorrhoids. She has tried multiple treatments in the past including infrared coagulation, hemorrhoid excision, and hemorrhoid banding. She continues to have intermittent rectal bleeding. She now presents for THC procedure. She reports no changes since last seen in the office. Review of Systems Review of Systems: All systems reviewed & are unremarkable except as noted in HPI and below Constitutional: Constitutional: Denies chills, Denies fever(s), Denies headache(s) and Denies weight loss Eyes: Eyes: Denies change in vision ENT: Denies dizziness, Denies headache(s), Denies neck mass and Denies throat swelling Cardiovascular: Cardiovascular: Denies chest pain, Denies lightheadedness and Denies dyspnea Respiratory: Respiratory: Denies cough, Denies dyspnea and Denies wheezing Gastrointestinal: Gastrointestinal: Denies abdominal pain, Denies change in bowel habits, Denies nausea and Denies vomiting Genitourinary: Genitourinary: Denies hematuria and Denies dysuria Musculoskeletal: Musculoskeletal: Reports as per HPI Integumentary/Breasts: Skin/Breast: Reports as per HPI Neurologic: Denies dizziness and Denies headache(s) Allergic/Immunologic: Allergic/Immunologic: Denies throat swelling and Denies wheezing [facility] Past Medical History Medical History Atrial fibrillation Diverticulosis External hemorrhoids Generalized anxiety disorder Hypertension Hypothyroidism Sleep apnea Supraventricular tachycardia Surgical History Surgical History History of appendectomy History of cardiac catheterization History of cataract extraction with lens replacement History of colonoscopy with polypectomy History of coronary artery stent placement (2010) History of hemorrhoidectomy (10/2021) 1. Internal and external hemorrhoidectomy x 1. 2. Internal hemorrhoid rubber banding x 1. History of hernia repair History of laparoscopic cholecystectomy History of left knee replacement (09/2016) History of loop recorder History of lumpectomy of left breast History of resection of small bowel (2009) For small-bowel obstruction related to strangulated hernia. History of total right knee replacement (05/2016) Family History Family History Father Family history of chronic obstructive pulmonary disease Family history of coronary artery disease Father Family history of coronary artery disease Family history of chronic obstructive pulmonary disease Mother Hypertension Mother Hypertension Father Family history of coronary artery disease Family history of chronic obstructive pulmonary disease Other Diabetes mellitus Family history of arthritis Family history of cardiovascular disease Family history of gout Social History Social History Social History: Surrogate medical decision maker: Terry Gomez, spouse. Code status: Full code. Smoking status: Never smoker Second hand tobacco smoke exposure: No Alcohol intake: never Substance use: never Substance use type: does not use Lack of Transportation: No Lack of Food: Never True Current Housing: I Have Housing Concerned About Future Housing: No Difficulty Paying Gas/Electric Bills: No Difficulty Paying for Meds: No Currently Unemployed: No Education: Don't Know Difficulty w/ Childcare or Family Care: No Living arrangements: with family Additional living arrangements comments: Lives with spouse in [place]. Occupation/Education: retired Spiritual care concerns: No Meds Home Medications and All
--- NOTE | 2023-05-07 12:55 | WPDHPUPDATE1 ---
History and Physical Update Update Date/Time: 05/07/23 12:55 History and Physical has been reviewed, including an updated exam of the patient. There are NO changes in the patient's condition. Risks, benefits, and alternatives have been discussed and questions answered. Patient agrees to proceed with procedure.
--- NOTE | 2023-05-07 13:17 | WPDANESEPPF ---
Anes - Initial Pre Proc Eval Procedure: Operation Date: 05/07/23 13:00 Proposed Procedures p Rectal Exam Under Anesthesia, - Gorge Negro DO s Transanal Hemorrhoid Dearterialization - Gorge Negro DO Date/Time: 05/07/23 13:17 Surgeon: Gorge Negro DO Pre Op Diagnosis: grade 2 internal hemorrhoids Patient Data Age: 82 Gender: F Height: 1.7 m Weight: 85 kg Last Vital Signs Temp 98.4 F 05/07/23 11:03 Pulse 63 05/07/23 11:03 Resp 18 05/07/23 11:03 BP 181/102 H 05/07/23 11:03 Pulse Ox 98 05/07/23 11:03 O2 Del Method Room Air 05/07/23 11:03 Allergies Allergy/AdvReac Type Severity Reaction Status Date / Time ciprofloxacin Allergy Intermediate Confusion Verified 05/07/23 11:28 codeine Allergy Intermediate Unknown Verified 05/07/23 11:28 iohexol Allergy Intermediate Hives Verified 05/07/23 11:28 [From contrast - CT, X-RAY] Sulfa (Sulfonamide Allergy Intermediate Confusion Verified 05/07/23 11:28 Antibiotics) Home Medications Medication Instructions Recorded Confirmed Type alprazolam 0.5 mg tablet 0.5 mg PO HS PRN Anxiety 11/15/19 05/07/23 History dicyclomine 10 mg capsule 10 mg PO QID PRN IBS #180 caps 12/27/20 05/07/23 Rx metoprolol tartrate 25 mg tablet See Rx Instructions .Route .COMPLEX 02/24/21 05/07/23 History spironolactone 25 mg tablet 25 mg PO QAM 04/11/21 05/07/23 History digoxin 125 mcg (0.125 mg) tablet 125 mcg PO DAILY 06/22/21 05/07/23 History cholecalciferol (vitamin D3) 25 25 mcg PO DAILY 10/20/21 05/07/23 History mcg (1,000 unit) capsule levothyroxine 25 mcg capsule 25 mcg PO QAM 10/20/21 05/07/23 History losartan 100 mg tablet 100 mg PO HS 10/20/21 05/07/23 History magnesium 100 mg tablet 100 mg PO QID 10/20/21 05/07/23 History duloxetine 20 mg capsule,delayed 20 mg PO HS 10/17/22 05/07/23 History release verapamil 120 mg tablet,extended 120 mg PO BID 11/22/22 05/07/23 History release apixaban 2.5 mg tablet (Eliquis) 2.5 mg PO BID 02/17/23 05/07/23 History estradiol 0.05 mg/24 hr weekly 1 patch topical WEEKLY 02/17/23 05/07/23 History transdermal patch fenofibric acid (choline) 135 mg 135 mg PO DAILY 02/17/23 05/07/23 History capsule,delayed release Patient hx anesthesia problems: none Family hx anesthesia problems: none Results Review: All pre-operative results and documents have been reviewed as part of the pre-operative evaluation. [facility] Past Medical History Medical History Atrial fibrillation Diverticulosis External hemorrhoids Generalized anxiety disorder Hypertension Hypothyroidism Sleep apnea Supraventricular tachycardia Surgical History Surgical History History of appendectomy History of cardiac catheterization History of cataract extraction with lens replacement History of colonoscopy with polypectomy History of coronary artery stent placement (2010) History of hemorrhoidectomy (10/2021) 1. Internal and external hemorrhoidectomy x 1. 2. Internal hemorrhoid rubber banding x 1. History of hernia repair History of laparoscopic cholecystectomy History of left knee replacement (09/2016) History of loop recorder History of lumpectomy of left breast History of resection of small bowel (2009) For small-bowel obstruction related to strangulated hernia. History of total right knee replacement (05/2016) Family History Family History Father Family history of chronic obstructive pulmonary disease Family history of coronary artery disease Father Family history of coronary artery disease Family history of chronic obstructive pulmonary disease Mother Hypertension Mother Hypertension Father Family history of coronary artery disease Family history of chronic obstructive pulmonary disease Other Diabetes mellitus Family history o
[2023-05-07] MEDS: ceFAZolin 2 GM/D5W 50 ML 2 GM/50 ML BAG IVPB (13:38)
[2023-05-07] MEDS: BUPIVACAINE/EPINEPHRINE 0.5% 50 ML VIAL 30 ML INFILTRATE (14:09)
--- NOTE | 2023-05-07 14:44 | P.OP_ITS ---
Procedure Note - Detailed Date of Procedure 05/07/23 Pre-op Diagnosis grade 2 internal hemorrhoids Post-op Diagnosis Same Procedure Performed 1. Multiple hemorrhoid ligation (Transanal hemorrhoid dearterialization procedure) 2. Anal proctoplasty Surgeon Gorge Negro, DO Anesthesia General and Local ( 0.5% bupivacaine with epinephrine) Indications This is an 82-year-old woman presented with recurrent bleeding internal hemorrhoids. She has tried other procedures in the past including infrared coagulation, hemorrhoidectomy, and rubber banding procedures. She has had recurrent bleeding over the past 6 months. Discussions were made with the patient about treatment options and decision was made to proceed with rectal exam under anesthesia transanal hemorrhoid dearterialization procedure. Findings Rectal exam under anesthesia was performed. Patient did have some prolapsing internal hemorrhoid tissue in the right anterior and left anterior locations. The vessels were identified in the typical locations at 1, 3 5, 7, 9, and 11 o'clock positions. The pulsatile vessels were somewhat faint in the left anterior and left lateral positions. After performing the ligation of the vessels, I then performed anal procto plasty in the left anterior and right anterior positions. No specimens were obtained for pathology. Description of Procedure Procedure as well as risks, benefits, and alternatives were discussed with the patient. Written consent was obtained and placed in chart prior to procedure. Patient was brought back to surgical suite. She was placed supine hospital stretcher. She was then intubated by the Anesthesia Department. She was then repositioned into prone jeremías-knife position and her buttocks were taped apart on each side. Her perirectal area was prepped and draped in sterile fashion using Betadine prep. Time-out was done to confirm patient and procedure. Digital rectal exam was initially performed. A Hill-Meng anoscope was then inserted in the anorectal canal was carefully inspected. Prolapsing internal hemorrhoids were identified, but no other significant abnormalities were noted. The [facility] Doppler anoscope was then inserted. The pulsatile hemorrhoidal vessel was initially identified in the 1 o'clock location. A 2 0 Vicryl [id number] suture was placed at this location and the suture was tied down to ligate the vessel. This was then repeated in the 3, 5, 7, 9, and 11 o'clock positions. All Doppler signals were easily identified in each location. After completing this portion of the procedure, I then examined the anoderm and anal mucosa for any persistent prolapsing tissue. A pexy was performed in the left anterior and right anterior positions. A 2 0 Vicryl [id number] suture was again placed into the hemorrhoidal bundle and then the suture was run distally along the rectal mucosa down to just above the dentate line. The suture was then tied down in place to pexy the mucosa up into the rectal canal. One final inspection was made around the anal rectal canal and no other abnormalities were noted. 0.5% bupivacaine with epinephrine was infiltrated locally around the anus. The patient was then awakened from anesthesia, extubated, and transferred to recovery. Estimated Blood Loss 5 Complications No immediate complications Condition Stable Disposition Same day [facility] Billing Surgery - Charge Forward: Surgery Billing
== END 2023-05-07 16:50 | disposition home or self-care (01) ==
PROVIDERS: PCP Internal Medicine; Visit Provider Surgery
PROC: (CPT 46948; principal; 2023-05-07 13:00)
PROC: (CPT 46948; 2023-05-07 13:00)
DX: K64.1 Second degree hemorrhoids (principal); K64.8 Other hemorrhoids; I48.91 Unspecified atrial fibrillation; K57.90 Diverticulosis of intestine, part unspecified, without perforation or abscess without bleeding; F41.9 Anxiety disorder, unspecified; I10 Essential (primary) hypertension; E03.9 Hypothyroidism, unspecified; G47.30 Sleep apnea, unspecified; I47.10 Supraventricular tachycardia, unspecified; Z95.5 Presence of coronary angioplasty implant and graft; Z82.49 Family history of ischemic heart disease and other diseases of the circulatory system; Z79.01 Long term (current) use of anticoagulants
CPT/HCPCS: 46948; A9270; J0690; J1100; J1885; J2371; J2405; J2704; J3010; J7120

== ENCOUNTER 2023-05-18 13:57 | Outpatient (CLI) | payer MEDICARE, BC, SELFPAY ==
[2023-05-18 14:37] LABS: Alanine Aminotransferase 18 U/L (14-59); Albumin Level 3.6 g/dL (3.4-5.0); Alkaline Phosphatase 69 U/L (46-116); Anion Gap 8 mmol/L (8-16); Aspartate Amino Transferase 14 U/L (15-37); Bilirubin,Total 0.9 mg/dL (0.00-1.00); Blood Urea Nitrogen 21 mg/dL (7-18); Calcium 10.3 mg/dL (8.5-10.1); Carbon Dioxide 31 mmol/L (21-32); Chloride 98 mmol/L (98-108); Estimated Glomerular Filt Rate 57; Glucose 93 mg/dL (70-99); Osmolality Calculated 287 mOsm/kg (285-295); Potassium 4.6 mmol/L (3.5-5.1); Sodium 137 mmol/L (136-145); Total Protein 7.1 g/dL (6.4-8.2)
[2023-05-18 15:58] LABS: Magnesium 1.7 mg/dL (1.8-2.4)
== END 2023-05-18 13:58 | disposition home or self-care (01) ==
PROVIDERS: PCP Internal Medicine; Visit Provider Internal Medicine Cardiovascular Disease
DX: E83.42 Hypomagnesemia (principal)
CPT/HCPCS: 36415; 80053; 83735

== ENCOUNTER 2023-05-28 09:26 | Outpatient (CLI) | payer MEDICARE, BC, SELFPAY ==
--- NOTE | 2023-05-29 15:03 | WPDHOLTEREM ---
Holter/Event Monitor Holter/Event Monitor Date of procedure: 05/28/23 Holter/Event Procedure: Event Monitor Indications: Bradycardia Conclusion: 1. 24 hour holter monitor on 05/28/23. 2. Underlying rhythm is atrial fibrillation, HR range 41-162 bpm; average HR 74 bpm. 3. No other supraventricular arrhythmias. 4. There is 1 premature ventricular complex. No ventricular tachycardia. 5. There is 1 pause greater than 2 seconds at 2.1 seconds at 11:59. 6. Patient reports 1 episode of symptom of anxious which demonstrate atrial fibrillation at 65 bpm.
== END 2023-05-28 09:27 | disposition home or self-care (01) ==
LOC: CHSCARD 09:29
PROVIDERS: PCP Internal Medicine; Visit Provider Internal Medicine
DX: R00.1 Bradycardia, unspecified (principal); R53.83 Other fatigue; I73.9 Peripheral vascular disease, unspecified; I48.91 Unspecified atrial fibrillation
CPT/HCPCS: 93225; 93226

== ENCOUNTER 2023-05-29 13:24 | Outpatient (RCR) | payer MEDICARE, BC, SELFPAY ==
--- NOTE | 2023-05-29 13:59 | OPREHPOC ---
Outpatient Therapy Plan of Care This is a Multidisciplinary Plan of Care that may contain components documented by all disciplines (PT, OT, and ST.) PT Problem 1 PT Problem #1 Knowledge Deficit PT Goal 1 Goal independent and compliant with HEP to improve tolerance for continued skilled PT and exercises. Target Visit 4 PT Problem 2 PT Problem #2 Impaired Strength PT Goal 1 Goal 1. improve bilateral knee strength to 4+/5 or better overall 2. improve bilateral hip strength to 4+/5 or better overall 3. improve PF strength to 4+/5 or better Target Visit 9 PT Problem 3 PT Problem #3 Impaired Balance PT Goal 1 Goal 1. decrease tug time by 3 seconds 2. decrease 5x sit to stand by 5 seconds 3. improve tinetti to 19/28 or better 4. improve GALLEGOS score by 8 points or better 5. patient to use rollator walker for ambulation at all times to improve balance and decrease fall/ injury risk. Target Visit 9
--- NOTE | 2023-05-29 13:59 | PTOPEVAL1 ---
Assessment and note entered by JT File, PT Evaluation Information Assessment Status Evaluation Diagnosis abnormal gait, unsteady balance Onset 05/25/23 Subjective Information patient reports since her last time here in therapy earlier this year she has fallen 1 time. she reports she has had several falls this year. she reports she gets cramps in her legs like nigel horses. she reports these occur every now and then. she reports she was getting magnesium frequently during her last bout of therapy, but has been normal for some time now. she reports she tries not to use a cane for ambulation. she reports she has it with her when out of the home, but does not use it in the home. Reported Pain Level Pain Score 4: Self Report Additional Pain Score Comments pain in the R arm, and bilateral LE's. Assessment PT Clinical Summary mrs. sanon presents to skilled PT services for balance and gait abnormality. she has had a fall since march of this year. she presents today with deficits in LE strength, proprioception/ righting reaction, balance, and ambulation. she presents with a high fall risk per the tinetti, GALLEGOS, 5x sit to stand, and the TUG test. she would benefit from continued skilled PT to improve her objective/functional deficits to improve her functional activity performance and quality of life. Plan of Care Interventions Gait Training,Neuro Re-education,Patient/Caregiver Educati,Therapeutic Activities,Therapeutic Exercise PT Services Indicated Yes Treatment Frequency and 3x weekly for 9 visits Duration These treatments will address the objective and functional deficits as defined above. The patient will be advanced safely and appropriately in order for the patient to progress towards his/her prior level of function. Additional exercises will be introduced and as well as a comprehensive home exercise program upon discharge, if needed, ?to ensure carryover of functional gains achieved in the clinic. This treatment plan has been reviewed and agreement upon by the patient.
--- NOTE | 2023-06-20 15:24 | OPREHPOC ---
Outpatient Therapy Plan of Care This is a Multidisciplinary Plan of Care that may contain components documented by all disciplines (PT, OT, and ST.) PT Problem 1 PT Problem #1 Knowledge Deficit PT Goal 1 Goal independent and compliant with HEP to improve tolerance for continued skilled PT and exercises. Target Visit 4 Progress Met PT Problem 2 PT Problem #2 Impaired Strength PT Goal 1 Goal 1. improve bilateral knee strength to 4+/5 or better overall 2. improve bilateral hip strength to 4+/5 or better overall. met 3. improve PF strength to 4+/5 or better Target Visit 9 Progress Partially Met PT Problem 3 PT Problem #3 Impaired Balance PT Goal 1 Goal 1. decrease tug time by 3 seconds. met 2. decrease 5x sit to stand by 5 seconds. met 3. improve tinetti to 19/28 or better 4. improve GALLEGOS score by 8 points or better 5. patient to use rollator walker for ambulation at all times to improve balance and decrease fall/ injury risk. not met Target Visit 9 Progress Partially Met
--- NOTE | 2023-06-20 15:25 | PTOPDC ---
Assessment and note entered by JT File, PT Evaluation Information Assessment Status Discharge Diagnosis abnormal gait, unsteady balance Onset 05/25/23 Subjective Information patient reports she feels Good today. she reports she has had no falls. she reports she was in the hospital yesterday due to dehydration and low eleectrolytes. she reports she owns a walker, but does not use it. she reports she does not like the way using a walker looks. she reports she will reach and hold onto furniture around the house. Reported Pain Level Pain Score 0: Self Report Assessment PT Clinical Summary mrs. sanon presents to skilled PT for her 9th skilled therapy visit for abnormal gait. she presents today with improvements in TUG and 5x sit to stand. however, she continues to present with moderate fall risk per the tinetti and high fall risk per the GALLEGOS. she would do best to use a rollator wallker at all times to stand and ambulate. she will be dc'd from skilled PT this date. she is planning to leave town for a trip, and when returns will begin fall prevention class 2x weekly. Plan of Care PT Services Indicated Yes
== END 2023-06-20 15:29 | disposition home or self-care (01) ==
LOC: CHSPT 13:24
PROVIDERS: PCP Internal Medicine; Visit Provider Internal Medicine
DX: R26.9 Unspecified abnormalities of gait and mobility (principal)
CPT/HCPCS: 72100; 93922; 97110; 97112; 97150; 97161; 97530; 97750

== ENCOUNTER 2023-05-29 14:02 | Outpatient (CLI) | payer MEDICARE, BC, SELFPAY ==
--- NOTE | ~2023-05-29 | US_ITS ---
EXAMINATION: US arterial ankle brachial ind DATE: 05/29/2023 15:01 INDICATION: Peripheral arterial disease. TECHNIQUE: Segmental pressures and plethysmographic and Doppler waveforms of the brachial and lower e xtremity arteries were obtained. COMPARISON: None. FINDINGS: Right and left brachial artery pressures of 139 mm Hg and 138 mm Hg, respectively, are concordant (no rmal difference <= 30 mmHg). The right ankle-brachial index (LETTY) is 0.55 (normal >= 0.9-1.0). The right great toe arterial signal is not detectable. Arterial Doppler waveforms are monophasic at the ankle. The left LETTY is 0.23. The left posterior tibial artery and left great toe arterial signals are not de tectable. Arterial Doppler waveforms are monophasic in dorsalis pedis. IMPRESSION: 1. Moderately decreased right LETTY, severely decreased left LETTY, and undetectable arterial flow in the great toes, consistent with arterial occlusive disease. Reviewed, dictated and finalized at location A. PLATE STAMPING MACHINE OPERATOR IMPRESSION: 1. Moderately decreased right LETTY, severely decreased left LETTY, and undetectabl e arterial flow in the great toes, consistent with arterial occlusive disease.
--- NOTE | ~2023-05-29 | XR_ITS ---
Lumbosacral Spine: AP and lateral views Clinical History: Pain Findings: There is mild levoscoliosis. There is 1 cm anterolisthesis of L4 over L5. There is severe f acet arthropathy throughout the lumbar spine. There is mild degenerative disc narrowing. Extensive at herosclerotic calcifications of the aorta are present. The sacroiliac joints are normally outlined. Impression: 1 cm anterolisthesis of L4 over L5. Moderate to advanced degenerative spondylosis, especially the lower lumbar spine. Reviewed, dictated and finalized at location M. CAR OPERATOR Impression: 1 cm anterolisthesis of L4 over L5. Moderate to advanced degenerative spondylosis, especially the lower lumbar spin e.
== END 2023-05-29 14:03 | disposition home or self-care (01) ==
LOC: CHSIMG 14:03
PROVIDERS: PCP Internal Medicine; Visit Provider Internal Medicine
DX: R00.1 Bradycardia, unspecified (principal); R53.83 Other fatigue; I73.9 Peripheral vascular disease, unspecified; M43.16 Spondylolisthesis, lumbar region
CPT/HCPCS: 72100; 93922

== ENCOUNTER → 2023-06-18 08:45 | Outpatient (CLI) | payer MEDICARE, BC, SELFPAY ==
--- NOTE | ~2023-06-18 | MR_ITS ---
MRI of the lumbar spine Clinical History: Pain Technique: Axial T2-weighted images, and sagittal T1-weighted, T2-weighted, and and T2 fat-sat images were acquired. Findings: No fracture identified. 2 mm anterolisthesis of L3 over L4 present. 6 mm anterolisthesis of L4 over L5 present. No suspicious bone marrow signal reality seen. At L1-L2, there is minimal disc bulge and mild facet joint hypertrophy. No central canal stenosis. Th ere is mild bilateral neural foraminal narrowing. At L2-L3, there is mild disc bulge with advanced facet arthropathy. No mahamed central canal stenosis. Neural foramina are preserved. At L3-L4, there is disc bulge with advanced facet arthropathy. No mahamed central canal stenosis. There is moderate right neural foraminal narrowing. Left neural foramen preserved. At L4-L5, there is disc bulge/uncovering with severe facet arthropathy and moderate to severe central canal stenosis/thecal sac compression. There is moderate to severe right neural foraminal narrowing, and moderate left neural foraminal narrowing. At L5-S1, there is mild disc bulge with moderate facet arthropathy. No central canal stenosis. There is probable minimal bilateral neural foraminal narrowing. Paravertebral soft tissues are unremarkable. Impression: 6 mm anterolisthesis of L4 over L5. 2 mm anterolisthesis of L3 over L4. Severe degenerative spondylosis at L4-L5, as detailed above. Mild degenerative spondylosis the remain suraj of the lumbar spine. Reviewed, dictated and finalized at [facility]. DOG TRAINER Impression: 6 mm anterolisthesis of L4 over L5. 2 mm anterolisthesis of L3 over L4. Severe degenerative spondylosis at L4-L5, as detailed above. Mild degenerative spondylosis the remainder of the lumbar spine.
== END ==
PROVIDERS: PCP Internal Medicine; Visit Provider Internal Medicine
DX: M47.896 Other spondylosis, lumbar region (principal)
CPT/HCPCS: 72148

== ENCOUNTER 2023-06-19 09:25 | Emergency (ER) | payer MEDICARE, BC, SELFPAY ==
[2023-06-19] VITALS (20 sets, daily range): BP systolic 118–157; BP diastolic 75–90; PULSE 58–78; RESP 7–35; TEMP 36.2; O2SAT 95–100
--- NOTE | ~2023-06-19 | CT_ITS ---
Non-contrast Head CT History: Confusion COMPARISON: 02/17/2023 Technique: Axial non-contrast imaging of the brain was performed. Dose reduction technique was used on this scan by utilizing automated exposure control and iterative reconstruction technique. The dose -length product (DLP) was 605.33 mGy-cm. Findings: There is no evidence of intracranial hemorrhage, mass lesion, or acute infarct. Brain par enchyma appears normal. The ventricles and subarachnoid spaces are normal in size. The calvarium ap pears normal. The visualized paranasal sinuses and mastoid air cells are clear. Impression: No significant abnormality seen. Reviewed, dictated and finalized at location . RIALS TECH Impression: No significant abnormality seen.
--- NOTE | 2023-06-19 09:40 | ED.AMS ---
HPI - Altered Mental Status General Chief Complaint: Altered Mental Status Stated Complaint: near syncope Time Seen by Provider: 06/19/23 09:35 Source: patient Limitations: no limitations History of Present Illness HPI narrative: 82-year-old female with a history of hypertension, dyslipidemia, hypothyroidism, coronary artery disease status post stent, atrial fibrillation on Eliquis, SVT, diverticulosis, NAEL, external hemorrhoids presents to the ER with -- altered mental status. the patient noted this morning that she was unable to remember her medications. She felt a sudden lapse in memory. No focal neuro deficits. No seizures. No incontinence. -- Patient felt lightheaded when she stood up. Subsequently her lightheadedness resolved. -- her added that she was not able to move arms when he asked her to do so. He also felt that she was blankly into space. He was unable to specify the duration of the blank stare. Patient does not have any prior history of strokes or TIA. Her blood sugar taken at that point was noted to be normal. MD complaint: altered mental status and confusion Timing confirmed by: spouse Severity: mild Consistency of symptoms: unknown Associated symptoms: denies other symptoms and syncope Related Data Home Medications Medication Instructions Recorded Confirmed alprazolam 0.5 mg tablet 0.5 mg PO HS PRN Anxiety 11/15/19 06/19/23 metoprolol tartrate 25 mg tablet See Rx Instructions .Route .COMPLEX 02/24/21 06/19/23 spironolactone 25 mg tablet 25 mg PO QAM 04/11/21 06/19/23 digoxin 125 mcg (0.125 mg) tablet 125 mcg PO DAILY 06/22/21 06/19/23 cholecalciferol (vitamin D3) 25 25 mcg PO DAILY 10/20/21 06/19/23 mcg (1,000 unit) capsule levothyroxine 25 mcg capsule 25 mcg PO QAM 10/20/21 06/19/23 losartan 100 mg tablet 100 mg PO HS 10/20/21 06/19/23 magnesium 100 mg tablet 100 mg PO QID 10/20/21 06/19/23 duloxetine 20 mg capsule,delayed 20 mg PO HS 10/17/22 06/19/23 release verapamil 120 mg tablet,extended 120 mg PO BID 11/22/22 06/19/23 release apixaban 2.5 mg tablet (Eliquis) 2.5 mg PO BID 02/17/23 06/19/23 estradiol 0.05 mg/24 hr weekly 1 patch topical WEEKLY 02/17/23 06/19/23 transdermal patch fenofibric acid (choline) 135 mg 135 mg PO DAILY 02/17/23 06/19/23 capsule,delayed release Allergies Allergy/AdvReac Type Severity Reaction Status Date / Time ciprofloxacin Allergy Intermediate Confusion Verified 06/19/23 09:34 codeine Allergy Intermediate Unknown Verified 06/19/23 09:34 iohexol Allergy Intermediate Hives Verified 06/19/23 09:34 [From contrast - CT, X-RAY] Sulfa (Sulfonamide Allergy Intermediate Confusion Verified 06/19/23 09:34 Antibiotics) Review of Systems Review of Systems: All systems reviewed & are unremarkable except as noted in HPI and below Constitutional: Constitutional: Reports as per HPI and Reports no additional constitutional complaints Eyes: Eyes: Reports as per HPI and Reports no additional eye complaints ENT: Reports system reviewed and no additional complaints, except as documented and Reports as per HPI Cardiovascular: Cardiovascular: Reports as per HPI and Reports no additional cardiovascular complaints Respiratory: Respiratory: Reports as per HPI and Reports no additional respiratory complaints Gastrointestinal: Gastrointestinal: Reports as per HPI and Reports no additional gastrointestinal complaints Genitourinary: Genitourinary: Reports no additional female genitourinary complaints and Reports as per HPI Musculoskeletal: Musculoskeletal: Reports no additional musculoskeletal complaints and Reports as per HPI Integumentary/Breasts: Skin/Breast: Reports system reviewed and no additional complaints, except as docu and Reports as per HPI Neurologic: Reports system reviewed and no additional complaints, except as documented and Reports as per HPI Comments: Transient lapse of memory. Transient lightheadedness on standing up. Psychiatr
--- NOTE | 2023-06-19 10:00 | ECG_ITS ---
Measurements Intervals [place] Rate: 57 P: MD: 0 QRS: 93 QRSD: 75 T: -24 QT: 353 QTc: 346 Interpretive Statements ATRIAL FIBRILLATION WITH SLOW VENTRICULAR RESPONSE BORDERLINE RIGHT AXIS DEVIATION [QRS AXIS > 90] POOR R-WAVE PROGRESSION PEAKED T-WAVES, CONSIDER ELECTROLYTE IMBALANCE/HYPERKALEMIA MODERATE T-WAVE ABNORMALITY, CONSIDER LATERAL ISCHEMIA [-0.1+ mV T-WAVE IN I/aVL/V5/V6] COMPARED TO ECG 02/17/2023 11:18:54 THE PEAKING OF THE T-WAVES IS NEW Electronically Signed On 06-19-2023 13:19:21 ROPING TENDER by Sienna Roman M.D.
[2023-06-19 10:19] LABS: Basophils Absolute Auto 0.07 K/mm3 (0.00-0.10); Basophils Percent Auto 0.9 % (0.0-1.0); Eosinophils Absolute Auto 0.08 K/mm3 (0.02-0.50); Hematocrit 51.7 % (35.0-42.0); Hemoglobin 17.1 g/dL (11.7-13.8); Immature Granulocyte Absolute 0.03 K/mm3 (0.00-0.00); Immature Granulocyte Percent A 0.4 % (0.0-0.0); Lymphocytes Absolute Auto 1.88 K/mm3 (1.10-4.50); Mean Corpuscular HGB Conc 33.1 g/dL (32.0-36.0); Mean Corpuscular Hemoglobin 34.1 pg (27.0-31.0); Mean Corpuscular Volume 103.2 fL (78.0-102.0); Mean Platelet Volume 9.5 fl (9.2-11.8); Monocytes Absolute Auto 0.75 K/mm3 (0.10-0.90); Monocytes Percent Auto 9.2 % (2.0-11.0); Neutrophils Absolute Auto 5.4 K/mm3 (1.7-7.2); Neutrophils Percent Auto 65.5 % (50.0-70.0); Platelet Count Result 262 K/mm3 (150-420); Red Blood Count 5.01 M/mm3 (4.20-5.40); Red Cell Distribution Width 12.8 % (11.6-14.4); White Blood Count 8.2 K/mm3 (4.8-10.8)
--- NOTE | 2023-06-19 10:38 | PC.NURSE ---
PT HAS RETURNED FROM CT, IN RR AT THIS TIME. WILL CONTINUE TO MONITOR.
[2023-06-19 10:39] LABS: Alanine Aminotransferase 35 U/L (14-59); Albumin Level 3.8 g/dL (3.4-5.0); Alkaline Phosphatase 50 U/L (46-116); Anion Gap 4 mmol/L (8-16); Aspartate Amino Transferase 14 U/L (15-37); Bilirubin,Total 1.9 mg/dL (0.00-1.00); Blood Urea Nitrogen 31 mg/dL (7-18); Calcium 9.9 mg/dL (8.5-10.1); Carbon Dioxide 35 mmol/L (21-32); Chloride 97 mmol/L (98-108); Estimated CRCL calculation 38 ml/min; Estimated Glomerular Filt Rate 49; Glucose 102 mg/dL (70-99); Lipase 44 U/L (16-77); Osmolality Calculated 288 mOsm/kg (285-295); Potassium 4.6 mmol/L (3.5-5.1); Sodium 136 mmol/L (136-145); Total Protein 7.1 g/dL (6.4-8.2); Troponin I 9.3 ng/L (0.00-60.4)
--- NOTE | 2023-06-19 10:40 | PC.NURSE ---
Lab called with Elevated dig level of 2.2
[2023-06-19 10:41] LABS: Digoxin 2.2 ng/mL (0.9-2.0); Magnesium 1.5 mg/dL (1.8-2.4)
[2023-06-19 10:58] LABS: Appearance Urine Clear (Clear); Bilirubin Urine Negative (Negative); Blood Urine Trace-Intact (Negative); Color Urine Yellow (Yellow); Glucose Urine UA Negative (Negative); Ketones Urine Negative (Negative); Leukocyte Esterase Ur Negative LEU/UL (Negative); Nitrate Urine Negative (Negative); Protein Urine Trace (Negative); Specific Grav Ur 1.015 (1.010-1.020); pH Urine 6.5 (5.0-8.0)
[2023-06-19 11:04] LABS: Add Urine Microscopic? YES; Bacteria Urine Trace /hpf; RBC Urine 0-2 /hpf (0-2); Squamous Epithelial Cell Urine Few /hpf (Few); WBC Urine None seen /hpf (0-3)
--- NOTE | 2023-06-19 11:38 | PC.NURSE ---
pt had moderate rectal bleeding when trying to have a bowel movement notified dr and nurse
[2023-06-19] MEDS: LACTATED RINGERS 500 ML 999 ML IV CONT (11:49)
--- NOTE | 2023-06-19 11:58 | PC.NURSE ---
PT REPORTS THAT THE BRIGHT RED BLOOD IN THE STOOL IS NOTHING OUT OF THE NORMAL FOR HER. PT REPORTS LONG HX OF SAME WITH MULTIPLE HEMORRHOID REPAIRS. ERP IS AWARE. NO NEW ORDERS AT THIS TIME. NAD NOTED. PT REPORTS SHE HAS AN APPOINTMENT TODAY AT CARDIOLOGY OFFICE AND WOULD LIKE TO GET OUT OF HERE TO GET TO THE APPOINTMENT. VSS PER MONITOR. WILL CONTINUE TO MONITOR.
[2023-06-19] MEDS: MAGNESIUM SULF 2 GM/WATER 50ML 2 GM/50 ML BAG IVPB (12:15)
--- NOTE | 2023-06-19 13:49 | PC.NURSE ---
PT REPORTS SX HAVE IMPROVED PRIOR TO DC. PT IS QUICKER TO ANSWER ALL QUESTIONS. PT AMBULATORY TO WC WITHOUT DIFFICULTY.
== END 2023-06-19 13:40 | disposition home or self-care (01) ==
PROVIDERS: Emergency Provider Internal Medicine Critical Care Medicine; PCP Internal Medicine
DX: E83.42 Hypomagnesemia (principal); K64.9 Unspecified hemorrhoids; I12.9 Hypertensive chronic kidney disease with stage 1 through stage 4 chronic kidney disease, or unspecified chronic kidney disease; N18.32 Chronic kidney disease, stage 3b; I1A.0 Resistant hypertension; T46.0X1A Poisoning by cardiac-stimulant glycosides and drugs of similar action, accidental (unintentional), initial encounter; E78.5 Hyperlipidemia, unspecified; E03.9 Hypothyroidism, unspecified; I25.10 Atherosclerotic heart disease of native coronary artery without angina pectoris; I48.91 Unspecified atrial fibrillation; Z79.01 Long term (current) use of anticoagulants; Z79.899 Other long term (current) drug therapy
CPT/HCPCS: 36415; 70450; 80053; 80162; 81001; 83690; 83735; 84484; 85025; 93005; 96365; 99284; J3475; J7120

== ENCOUNTER 2023-07-27 09:48 | Outpatient (CLI) | payer MEDICARE, BC, SELFPAY ==
[2023-07-27 10:13] VITALS: BP 136/71; PULSE 68; RESP 14; TEMP 36.4; O2SAT 98; BMI 25.4
[2023-07-27] MEDS: SODIUM CHLORIDE 0.9% IVPB (10:20)
[2023-07-27] MEDS: MAGNESIUM SULFATE IVPB (10:20)
--- NOTE | 2023-07-27 13:45 | PC.NURSE ---
Patient here for IV Magnesium infusion r/t Mag level 07/26/23 1.4. Education given. No concerns voiced. IV Magnesium infusion administered. SEE MAR. Tolerated well. Safe exit of hospital per wc to car.
== END 2023-07-27 09:49 | disposition home or self-care (01) ==
LOC: CHSTREATRM 09:51
PROVIDERS: PCP Internal Medicine; Visit Provider Internal Medicine
DX: E83.42 Hypomagnesemia (principal)
CPT/HCPCS: 96365; 96366; J3475; J7050

== ENCOUNTER 2023-08-10 09:12 | Outpatient (CLI) | payer MEDICARE, BC, SELFPAY ==
[2023-08-10] MEDS: MAGNESIUM SULFATE IVPB (09:45)
[2023-08-10] MEDS: SODIUM CHLORIDE 0.9% IVPB (09:45)
[2023-08-10 10:00] VITALS: BP 108/73; PULSE 68; RESP 14; TEMP 36.6; O2SAT 98; BMI 25.4
--- NOTE | 2023-08-10 12:46 | PC.NURSE ---
Patient here for IV Magnesium infusion. Mag level 1.4 on 08/08/23 labs. Education given. No concerns voiced. IV Magnesium administered. SEE MAR. Tolerated well. Safe exit of hospital per self/ambulatory.
== END 2023-08-10 09:13 | disposition home or self-care (01) ==
LOC: CHSLAB 09:15 → CHSTREATRM 09:16
PROVIDERS: PCP Internal Medicine; Visit Provider Internal Medicine
DX: E83.42 Hypomagnesemia (principal)
CPT/HCPCS: 96365; 96366; J3475; J7050

== ENCOUNTER 2023-08-14 17:04 | Outpatient (NON) | payer MEDICARE, BC, SELFPAY | END 2023-08-14 17:05 | disposition home or self-care (01) | LOC: CHSLAB 17:09 | PROVIDERS: Visit Provider Specialist | DX: L02.415 Cutaneous abscess of right lower limb (principal) | CPT/HCPCS: 87070; 87075; 87101; 87147; 87186; 87205 ==

== ENCOUNTER 2023-09-20 14:15 | Outpatient (RCR) | payer MEDICARE, SELFPAY ==
[2023-06-23 12:23] LABS: Magnesium 1.6 mg/dL (1.8-2.4)
[2023-07-26 14:55] LABS: Magnesium 1.4 mg/dL (1.8-2.4)
[2023-08-08 13:33] LABS: Magnesium 1.4 mg/dL (1.8-2.4)
[2023-08-27 15:24] LABS: Magnesium 1.7 mg/dL (1.8-2.4)
[2023-09-20 15:27] LABS: Magnesium 1.6 mg/dL (1.8-2.4)
== END 2023-09-21 23:59 | disposition home or self-care (01) ==
LOC: CHSLAB 14:15
PROVIDERS: PCP Internal Medicine; Visit Provider Internal Medicine
DX: E83.42 Hypomagnesemia (principal)
CPT/HCPCS: 36415; 83735

== ENCOUNTER 2023-09-25 08:57 | Outpatient (CLI) | payer MEDICARE, SELFPAY ==
[2023-09-25 09:27] LABS: Basophils Absolute Auto 0.09 K/mm3 (0.00-0.10); Basophils Percent Auto 1.1 % (0.0-1.0); Eosinophils Absolute Auto 0.14 K/mm3 (0.02-0.50); Eosinophils Percent Auto 1.8 % (1.0-6.0); Hematocrit 49.2 % (35.0-42.0); Hemoglobin 16.5 g/dL (11.7-13.8); Immature Granulocyte Absolute 0.03 K/mm3 (0.00-0.00); Immature Granulocyte Percent A 0.4 % (0.0-0.0); Lymphocytes Absolute Auto 2.14 K/mm3 (1.10-4.50); Mean Corpuscular HGB Conc 33.5 g/dL (32.0-36.0); Mean Corpuscular Hemoglobin 34.3 pg (27.0-31.0); Mean Corpuscular Volume 102.3 fL (78.0-102.0); Mean Platelet Volume 9.4 fl (9.2-11.8); Monocytes Absolute Auto 0.64 K/mm3 (0.10-0.90); Monocytes Percent Auto 8.1 % (2.0-11.0); Neutrophils Absolute Auto 4.9 K/mm3 (1.7-7.2); Neutrophils Percent Auto 61.6 % (50.0-70.0); Platelet Count Result 265 K/mm3 (150-420); Red Blood Count 4.81 M/mm3 (4.20-5.40); White Blood Count 7.9 K/mm3 (4.8-10.8)
[2023-09-25 10:20] LABS: Alanine Aminotransferase 22 U/L (14-59); Albumin Level 4.2 g/dL (3.4-5.0); Alkaline Phosphatase 35 U/L (46-116); Anion Gap 9 mmol/L (8-16); Aspartate Amino Transferase 18 U/L (15-37); Bilirubin,Total 1.3 mg/dL (0.00-1.00); Blood Urea Nitrogen 29 mg/dL (7-18); Calcium 10.4 mg/dL (8.5-10.1); Carbon Dioxide 29 mmol/L (21-32); Chloride 100 mmol/L (98-108); Estimated Glomerular Filt Rate 53; Free T4 Free Thyroxine 1.43 ng/dL (0.76-1.46); Glucose 98 mg/dL (70-99); HDL Direct 46 mg/dL (40-60); Osmolality Calculated 291 mOsm/kg (285-295); Potassium 4.6 mmol/L (3.5-5.1); Sodium 138 mmol/L (136-145); Thyroid Stimulating Hormone 3.98 uIU/mL (0.36-3.74); Triglycerides 101 mg/dL (0-150)
[2023-09-25 10:23] LABS: Hemoglobin A1C 5.1 % (<5.7)
[2023-09-25 11:00] LABS: Cholesterol 175 mg/dL (0-200); LDL Cholesterol Calculated 109 mg/dL (<130)
[2023-09-25 12:47] LABS: Digoxin 0.9 ng/mL (0.9-2.0)
== END 2023-09-25 08:58 | disposition home or self-care (01) ==
LOC: CHSLAB 09:01
PROVIDERS: PCP Internal Medicine; Visit Provider Internal Medicine Cardiovascular Disease
DX: I73.9 Peripheral vascular disease, unspecified (principal); R53.83 Other fatigue; I25.10 Atherosclerotic heart disease of native coronary artery without angina pectoris; I10 Essential (primary) hypertension; E78.2 Mixed hyperlipidemia; G47.33 Obstructive sleep apnea (adult) (pediatric); I48.19 Other persistent atrial fibrillation; R60.0 Localized edema; E03.9 Hypothyroidism, unspecified; K92.2 Gastrointestinal hemorrhage, unspecified; Z99.89 Dependence on other enabling machines and devices; N18.30 Chronic kidney disease, stage 3 unspecified; R73.09 Other abnormal glucose
CPT/HCPCS: 36415; 80053; 80061; 80162; 83036; 84439; 84443; 84480; 85025

== ENCOUNTER 2023-10-09 12:09 | Outpatient (CLI) | payer MEDICARE, BC, SELFPAY ==
--- NOTE | ~2023-10-09 | MM_ITS ---
EXAMINATION: MM screening hannah BI w joel HISTORY: Screening mammogram TECHNIQUE: Craniocaudal and mediolateral oblique 3-D tomosynthesis images were obtained and synthetic 2-D images were generated. CAD analysis was submitted and interpreted. COMPARISON: August 28, 2022, August 26, 2021 bilateral screening mammogram examinations BREAST PARENCHYMAL COMPOSITION: The breasts are heterogeneously dense, which may obscure small masses . FINDINGS: There is no evidence of suspicious mass, calcification, or architectural distortion to sugg est malignancy in either breast. There has been no suspicious interval change. IMPRESSION: 1. No mammographic evidence of malignancy. 2. Recommend routine screening mammography in one year. BI-RADS Category 1: Negative Reviewed, dictated and finalized at location A.
== END 2023-10-09 12:10 | disposition home or self-care (01) ==
LOC: CHSIMG 12:14
PROVIDERS: PCP Internal Medicine; Visit Provider Internal Medicine
DX: Z12.31 Encounter for screening mammogram for malignant neoplasm of breast (principal)
CPT/HCPCS: 77063; 77067

== ENCOUNTER 2023-11-08 14:16 | Outpatient (RCR) | payer MEDICARE, SELFPAY ==
[2023-11-08 15:17] LABS: Magnesium 1.7 mg/dL (1.8-2.4)
== END 2024-02-06 23:59 | disposition home or self-care (01) ==
LOC: CHSLAB 14:16
PROVIDERS: PCP Internal Medicine; Visit Provider Internal Medicine
DX: E83.42 Hypomagnesemia (principal)
CPT/HCPCS: 36415; 83735

== ENCOUNTER 2023-11-28 07:20 | Outpatient (RCR) | payer MEDICARE, SELFPAY ==
[2023-09-05 13:30] VITALS: BMI 25.2
== END 2023-12-04 23:59 | disposition home or self-care (01) ==
LOC: ANHWOC 07:20
PROVIDERS: PCP Internal Medicine; Visit Provider Internal Medicine
DX: I83.229 Varicose veins of left lower extremity with both ulcer of unspecified site and inflammation (principal)
CPT/HCPCS: 99213; 99214; G0463

== ENCOUNTER 2024-01-28 07:13 | Outpatient (RCR) | payer MEDICARE, BC, SELFPAY ==
[2023-12-05 00:06] VITALS: BMI 25.2
== END 2024-03-03 12:07 | disposition home or self-care (01) ==
LOC: ANHWOC 07:13
PROVIDERS: PCP Internal Medicine; Visit Provider Internal Medicine
DX: I83.229 Varicose veins of left lower extremity with both ulcer of unspecified site and inflammation (principal)
CPT/HCPCS: 99213; G0463